=== PATIENT | female | born 1960 | race Caucasian/White ===

== ENCOUNTER → 2017-07-26 09:40 | Outpatient (CLI) | payer MEDICARE, MEDICAID, SELFPAY ==
--- NOTE | 2017-07-26 | DI.RAD.S_ITS ---
PROCEDURE: XR FOOT RT MIN 3V INDICATIONS: pain in right foot TECHNIQUE: 3 views of the foot were acquired. COMPARISON: [facility], , XR FOOT 3V RIGHT, 06/23/2005, 8:37. FINDINGS: Bones: No fractures or dislocations. No suspicious bony lesions. Small calcaneal bone spur. Soft tissues: No tibiotalar joint effusion. Achilles tendon appears normal. IMPRESSION: No fracture. No acute osseous lesion. If symptoms and/or clinical suspicion for pathology persists, further assessment with repeat radiographs or advanced imaging (e.g. CT, MRI or bone scan) may be helpful for further assessment. Dictated by: Symone Mercado MD, PhD on 07/26/2017 at 9:28 Approved by: Symone Mercado MD, PhD on 07/26/2017 at 9:29
== END ==
PROVIDERS: Family Provider Family Medicine; PCP Family Medicine; Visit Provider Specialist
DX: M79.671 Pain in right foot (principal)
CPT/HCPCS: 73630

== ENCOUNTER 2017-10-10 11:56 | Emergency (ER) | payer MEDICARE, MEDICAID, SELFPAY ==
[2017-10-10 12:06] VITALS: BP 136/77; PULSE 72; RESP 14; TEMP 36.2; O2SAT 98; BMI 31.8
[2017-10-10 13:12] VITALS: BP 123/81; PULSE 64; RESP 19; O2SAT 98
--- NOTE | 2017-10-10 13:50 | ED_ITS ---
HPI - Seizure General Chief Complaint: Seizure Stated Complaint: SEIZURES Time Seen by Provider: 10/10/17 12:13 Source: patient Mode of arrival: ambulatory Limitations: no limitations History of Present Illness HPI Narrative: Patient states she was started on tramadol for painful bump behind her ear. She states that right after that, she began to have shaking episodes. Caregiver reports noticing the patient's whole body shaking during her sleep, but patient also states she noticed her hands shaking in the car. Patient states that she has different kinds of seizures, and that she has been told she has epileptic and nonepileptic seizures. Patient states that she sometimes will get shaking and her hand and sometimes in a leg. Patient's caregiver states that when the patient awoke from her nap, during which she had had some full body shaking, the patient seemed confused. MD complaint: seizure Onset (ago): hour(s) (2) Description of Episode: tonic-clonic movement and post-event confusion -: second(s) Witnessed: yes - by other (Patient's caregiver) Trauma: No Seizure History: known seizure disorder (Patient states she has been taking her Topamax. She also takes gabapentin for her seizures, she states.) Place: home Possible Precipitating Event: medication Associated symptoms: other (Patient states she has had a painful bump behind her left ear. She states that she has not been sleeping well because of this. She saw her doctor for this this morning, and was given the tramadol.) Treatments prior to arrival: other (Patient states she took her Topamax just before coming. She has not missed any recent doses.) Related Data Home Medications Medication Instructions Recorded Confirmed [RED RICE YEAST] 600 mg PO BID #0 03/31/10 albuterol sulfate [Proventil HFA] 2 puff INH PRN PRN #0 03/31/10 cholecalciferol (vitamin D3) 5,000 unit PO QDAY #0 03/31/10 docusate sodium [DOK] 500 mg PO PRN PRN #0 03/31/10 [CRANBERRY] 1 tab PO QDAY #0 10/16/16 gabapentin [Neurontin] 3,200 mg PO QDAY #0 10/16/16 ibuprofen 400 mg PO PRN PRN #0 10/16/16 loperamide 2 mg PO PRN PRN #0 10/16/16 loratadine 10 mg PO QDAYP PRN #0 10/16/16 peg 400-propylene glycol (PF) 2 drp OPHTH QDAY #0 10/16/16 [Systane (PF)] tizanidine 4 mg PO QDAYP PRN #0 10/16/16 Previous Rx's Medication Instructions Recorded topiramate [Topamax] 4 tab PO BID #30 10/16/16 Walker: Front Wheel #1 11/18/16 oxycodone 1 - 2 tab PO Q3HP PRN #60 tab 11/18/16 rivaroxaban [Xarelto] 10 mg PO QDAY #10 tab 11/18/16 acetaminophen-codeine 1 tab PO Q4-6H PRN #14 tab 10/10/17 [Tylenol-Codeine #3] Allergies Allergy/AdvReac Type Severity Reaction Status Date / Time adhesive tape [ADHESIVE TAPE] Allergy Severe I GOT RED Verified 10/10/17 12:15 aspirin [ASPIRIN] Allergy Unknown UNKNOWN Verified 10/10/17 12:15 REACTION PER PT nitrofurantoin Allergy Unknown UNKNOWN Verified 10/10/17 12:15 [NITROFURANTOIN] REACTION Penicillins [PENICILLINS] Allergy Unknown ITCHING-PT Verified 10/10/17 12:15 DOES NOT REMEMBER SEVERITY Sulfa (Sulfonamide Allergy Unknown UNKNOWN Verified 10/10/17 12:15 Antibiotics) PER PT [SULFA (SULFONAMIDE ANTIBIOTICS)] [id number] Allergy Unknown PT NOT Uncoded 06/13/17 12:04 AWARE OF THIS ALLERGY Review of Systems Review of Systems All systems reviewed & are unremarkable except as noted in HPI and below Constitutional Denies chills, Denies fever(s), Denies lethargy and Denies weakness Eyes Denies change in vision, Denies eye discharge, Denies irritation and Denies loss of vision ENT Ears, Nose, Mouth, and Throat: Denies change in voice, Denies neck pain and Denies sore throat Cardiovascular Denies chest pain, Denies irregular heart rhythm, Denies lightheadedness, Denies palpitations, Denies dyspnea, Denies dyspnea on exertion and Denies orthopnea Respiratory Denies cough, Denies dyspnea, Denies dyspnea on exertion and Denies wheezing Gastrointestinal Gastrointestinal: Denies abdominal pain, Denies change in bowel habits, Denies diarrhea, Denies nausea and Denies vomiting Genitourinary Denies hematuria, Denies flank pain, Denies urinary incontinence and Denies urinary urgency Musculoskeletal Denies neck pain Integumentary/Breasts Denies pruritus, Denies erythema, Denies rash and Denies wounds Neurologic Denies confusion, Denies loss of vision, Reports seizure-like activity and Denies weakness Psychiatric Denies anxiety, Denies confusion, Denies depression, Denies homicidal ideation and Denies suicidal ideation Endocrine Denies palpitations Hematologic/Lymphatic Denies easy bruising Allergic/Immunologic Denies wheezing [facility] Social History Smoking Status: Never smoker Exam Initial Vital Signs Initial Vital Signs: Vital Signs Temperature 97.2 F L 10/10/17 12:06 Pulse Rate 72 10/10/17 12:06 Respiratory Rate 14 10/10/17 12:06 Blood Pressure 136/77 H 10/10/17 12:06 Pulse Oximetry 98 10/10/17 12:06 Const General: cooperative and well developed Nutritional Appearance: well nourished Orientation: alert, awake, oriented x3 and not confused HENPR Head: normocephalic and atraumatic Ears: external ears normal (Patient has a very small, and shotty lymph node posterior to her left ear. No erythema or fluctuance.) Nose: external nose normal and No nasal discharge Face and sinus: sinuses nontender, face symmetric, no sinus tenderness and No dry mucous membranes Mouth: oral mucosae normal and moist mucous membranes Teeth and gingiva: dentition normal Throat: tonsils normal and uvula midline Eyes General: appearance normal, both eyes and all related structures Eyelids: eyelids normal Conjunctivae: conjunctivae normal Sclera: sclerae normal Pupils: PERRL EOM: EOM intact bilaterally Neck Neck: normal visual inspection, trachea midline, No lymphadenopathy, No midline deformity and No JVD Lymphatic: No lymphedema Chest Chest: normal inspection of the chest Resp Effort & Inspection: normal respiratory effort, able to speak in complete sentences, no respiratory distress and no use of accessory muscles Auscultation: clear to auscultation bilaterally, no rales, no rhonchi and no wheezes Cardio Rate: regular rate Rhythm: regular rhythm Heart Sounds: no click, no gallops, no murmurs and no rubs Pulses: normal peripheral pulses GI Inspection: non-distended Palpation: soft, no hepatosplenomegaly, No guarding, No pulsatile mass and No tender Auscultation: normal bowel sounds Back/Spine/Pelvis Back: No CVA tenderness Cervical Spine: cervical ROM normal and No pain with cervical ROM Thoracic/Lumbar Spine: thoracic and lumbar spine normal to inspection Skin General: no rashes or lesions noted, No jaundice and No petechiae Neuro General: alert, oriented x3, gait normal and no focal motor deficits Speech: speech normal Extrem General: full ROM, no clubbing, cyanosis or edema, no pedal edema and no calf tenderness Psych Appearance: well kempt Mental Status: mental status grossly normal Attitude: cooperative Thought Content: normal and suicidality Judgment: judgment good Course Hospital Course: The patient remains stable for her stay in the emergency department. She had occasional shaking of her upper extremities in the ED, but never lost consciousness with any of these episodes. I felt that if anything, these episodes represented a nonepileptic spell. As such, the patient was not given Ativan or other seizure treatment in the emergency department. Laboratory studies were unremarkable. I discussed with the patient that if she feels that the tramadol is given her adverse effects, then she should hold off taking it. I will give her a small prescription for Tylenol 3 instead. If she continues to have increased seizure-like activity, then she should see her neurologist to discuss whether changes need to be made to her anticonvulsant regimen or whether other treatment is necessary. At this time, no emergent condition has been identified. Orders Ordered: Discontinued Medications Acetaminophen (Tylenol) 650 mg PO NOW ONE Stop: 10/10/17 14:08 Last Admin: 10/10/17 14:08 Dose: 650 mg Vital Signs - 8 hr 10/10/17 12:06 10/10/17 13:12 Pulse Rate 72 64 Respiratory Rate 14 19 Blood Pressure 136/77 H Blood Pressure [Right Arm] 123/81 H Pulse Oximetry 98 98 MDM - Seizure Medical Records Attestation: I reviewed the patient's medical records. Lab Data Attestation: I reviewed the patient's lab results. Result diagrams: 10/10/17 12:30 Lab Results 10/10/17 Range/Units 12:30 Sodium 143 (137-145) mmol/L Potassium 4.1 (3.4-5.1) mmol/L Chloride 110 H (98-107) mmol/L Carbon Dioxide 24 (22-32) mmol/L BUN 17 (7-17) mg/dL Creatinine 1.10 H (0.52-1.04) mg/dL Estimated GFR 51.8 L (>60) mL/min BUN/Creatinine Ratio 15.5 (6-22) Glucose 114 H (70-100) mg/dL Calcium 9.3 (8.4-10.2) mg/dL ECG Data Attestation: I personally reviewed and interpreted this ECG as follows: Prior ECG tracings: not available for review Interpretation: EKG time, 1224 Ventricular rate 62 beats per minute MN interval 174 milliseconds QRS duration 90 milliseconds QT interval normal Nonspecific T-wave abnormality Normal sinus rhythm Normal axis Discharge Plan Departure Patient Disposition: Home, Self-Care Clinical Impression: Seizure-like activity Discharge Date/Time: 10/10/17 15:30 Interventions: ED Discharge Assessment Last Done: 10/10/17 15:28 Instructions: DI for Seizure Disorder -- Adult Activity Restrictions/Additional Instructions: Your labs look good. Please continue to take your medications for seizures, as usual. If you're concerned about the tramadol causing a problem, and please discontinue use of this medication. You may take the Tylenol 3 instead, as needed. Prescriptions: New acetaminophen-codeine [Tylenol-Codeine #3] 300-30 mg tablet 1 tab PO Q4-6H PRN (Reason: pain) Qty: 14 RF: 0 No Action albuterol sulfate [Proventil HFA] 90 MCG/PUFF HFA aerosol inhaler 2 puff INH PRN PRNQty: 0 RF: 0 cholecalciferol (vitamin D3) 10,000 unit Tablet 5,000 unit PO QDAY Qty: 0 RF: 0 docusate sodium [DOK] 250 MG capsule 500 mg PO PRN PRNQty: 0 RF: 0 [RED RICE YEAST] 600 mg PO BID Qty: 0 RF: 0 gabapentin [Neurontin] 400 MG capsule 3,200 mg PO QDAY Qty: 0 RF: 0 tizanidine 4 MG tablet 4 mg PO QDAYP PRNQty: 0 RF: 0 loratadine 10 MG tablet 10 mg PO QDAYP PRNQty: 0 RF: 0 ibuprofen 200 MG capsule 400 mg PO PRN PRNQty: 0 RF: 0 loperamide 2 MG capsule 2 mg PO PRN PRNQty: 0 RF: 0 peg 400-propylene glycol (PF) [Systane (PF)] 1 EACH dropperette 2 drp OPHTH QDAY Qty: 0 RF: 0 [CRANBERRY] 1 tab PO QDAY Qty: 0 RF: 0 topiramate [Topamax] 50 MG tablet 4 tab PO BID Qty: 30 RF: 0 oxycodone 5 MG tablet 1 - 2 tab PO Q3HP PRNQty: 60 RF: 0 Walker: Front Wheel Qty: 1 RF: 0 rivaroxaban [Xarelto] 10 MG tablet 10 mg PO QDAY Qty: 10 RF: 0 Referrals: Jaya Wyatt DO [Primary Care Provider] - (Please follow-up with your doctor if you continue to have more seizure-like activity than usual.)
[2017-10-10 14:03] LABS: BUN Creatinine Ratio 15.5 (6-22); Blood Urea Nitrogen 17 mg/dL (7-17); Calcium 9.3 mg/dL (8.4-10.2); Carbon Dioxide 24 mmol/L (22-32); Chloride 110 mmol/L (98-107); Estimated Glomerular Filt Rate 51.8 mL/min (>60); Glucose 114 mg/dL (70-100); HEMOLYSIS < 15 (0-50); Potassium 4.1 mmol/L (3.4-5.1); Sodium 143 mmol/L (137-145)
[2017-10-10] MEDS: ACETAMINOPHEN 325 MG TABLET 650 MG PO (14:08)
[2017-10-10 14:30] VITALS: BP 127/88; PULSE 61; RESP 13; O2SAT 98
== END 2017-10-10 15:30 | disposition home or self-care (01) ==
PROVIDERS: Emergency Provider Emergency Medicine; Family Provider Family Medicine; PCP Family Medicine
DX: R56.9 Unspecified convulsions (principal)
CPT/HCPCS: 36591; 80048; 93005; 93010; 99283

== ENCOUNTER → 2017-10-26 13:10 | Outpatient (CLI) | payer MEDICARE, MEDICAID, SELFPAY ==
--- NOTE | 2017-10-26 | DI.CT.S_ITS ---
PROCEDURE: CT HEAD/BRAIN WO/W CON INDICATIONS: LEFT MASTOID AREA PAIN TECHNIQUE: 4.5 mm thick angled axial sections acquired from the foramen magnum to the vertex before and after the administration of intravenous contrast, with coronal and sagittal reformats. For radiation dose reduction, the following was used: automated exposure control, adjustment of mA and/or kV according to patient size. COMPARISON: [facility], CT, HEAD WITHOUT CONTRAST, 10/16/2016, 12:28. FINDINGS: Image quality: Excellent. CSF Spaces: Basal cisterns are patent. No extra-axial fluid collections. There is marked asymmetric enlargement of the left lateral ventricle, unchanged. Brain: No midline shift. No intracranial bleeds or masses. No abnormal intracranial enhancement. Mariscal-white interface appears normal. Skull and face: Calvarium and visualized facial bones appear intact, without suspicious lesions. There is a 6 mm enhancing nodule in the left parotid gland, and a 7 mm enhancing nodule is noted in the right parotid gland. Sinuses: Visualized sinuses and mastoids are clear. IMPRESSION: 1. No acute intracranial abnormalities. 2. Unchanged unilateral dilation of the left lateral ventricle. 3. Normally aerated mastoids. No findings to explain left mastoid pain. 4. Small enhancing nodules in parotid glands bilaterally, most likely intraparotid lymph nodes. If clinical symptoms persist, a short-term followup neck CT is suggested. Dictated by: Oswaldo Rodríguez M.D. on 10/26/2017 at 14:51 Approved by: Oswaldo Rodríguez M.D. on 10/26/2017 at 18:02
[2017-10-26 13:48] LABS: Blood Urea Nitrogen 16 mg/dL (7-17); Calcium 9.8 mg/dL (8.4-10.2); Carbon Dioxide 25 mmol/L (22-32); Chloride 108 mmol/L (98-107); Estimated Glomerular Filt Rate 57.8 mL/min (>60); Glucose 118 mg/dL (70-100); HEMOLYSIS < 15 (0-50); Sodium 145 mmol/L (137-145)
== END ==
PROVIDERS: Family Provider Family Medicine; PCP Family Medicine; Visit Provider Family Medicine
DX: H92.02 Otalgia, left ear (principal); K11.9 Disease of salivary gland, unspecified; E11.9 Type 2 diabetes mellitus without complications; H74.8X2 Other specified disorders of left middle ear and mastoid
CPT/HCPCS: 36415; 70470; 80048

== ENCOUNTER → 2018-07-18 13:34 | Outpatient (CLI) | payer MEDICARE, MEDICAID, SELFPAY ==
--- NOTE | 2018-07-18 | DI.MRI.S_ITS ---
PROCEDURE: MR THORACIC SPINE WO CON INDICATIONS: Cervicalgia Dorsalgia, unspecified TECHNIQUE: Noncontrast sagittal T1 spine echo and T2 fast spin echo, sagittal STIR, axial T1 and T2 fast spin echo through the thoracic spine. COMPARISON: None. FINDINGS: Image quality: Partially degraded by artifact. Alignment and Curvature: There is normal bony alignment. Bone Marrow: Marrow is of normal overall signal. No acute vertebral body compression fractures. Spinal Cord: Visualized spinal cord is normal in size and signal. Paraspinous Soft Tissues: No paravertebral masses. Miscellaneous: Multilevel disc desiccation. On axial images, central canal and foramina appear widely patent at all scanned levels. IMPRESSION: Multilevel degenerative disc disease. No significant canal, nor foraminal stenosis. No neural impingement. Dictated by: Branden Mckoy M.D. on 07/18/2018 at 15:36 Approved by: Branden Mckoy M.D. on 07/18/2018 at 15:39
--- NOTE | 2018-07-18 | DI.MRI.S_ITS ---
PROCEDURE: MR CERVICAL SPINE WO CON INDICATIONS: Cervicalgia Dorsalgia, unspecified TECHNIQUE: Noncontrast sagittal T1 spin echo and T2 fast spin echo, sagittal STIR, foraminal oblique sagittal T2 fast spin echo, and axial gradient echo or T2 fast spin echo through the cervical spine. COMPARISON: [facility], , C-SPINE WITHOUT CONTRAST, 02/01/2010, 12:56. FINDINGS: Image quality: Excellent. Alignment and Curvature: There is loss of normal cervical lordosis. There is mild, grade 1 retrolisthesis of C4 on C5. Bone Marrow: Marrow demonstrates normal overall signal. Anterior fusion of C5-C7 has been performed. Spinal Cord: Visualized spinal cord has normal size and signal. No cerebellar tonsillar herniation. Paraspinous Soft Tissues: No paravertebral masses. Prevertebral soft tissues are normal in thickness. C2-C3: Moderate disc desiccation. Mild facet hypertrophy bilaterally. Mild canal stenosis. Mild bilateral foraminal stenosis. No change. C3-C4: Moderate disc desiccation. Mild disc height loss. Mild diffuse disc bulge. Congenital canal stenosis. Increased, moderate canal stenosis. Increased, mild cord flattening. Severe right and mild left foraminal stenosis, which is increased. Flattening of the right C4 nerve root, new since the prior examination. C4-C5: Moderate disc desiccation. Mild disc height loss. Mild diffuse disc bulge. Congenital canal stenosis. Moderate facet and uncovertebral hypertrophy. Increased, moderate to severe canal stenosis. Mild cord flattening. Increased, moderate bilateral foraminal stenosis. C5-C6: Status post fusion. Bilateral facet and uncovertebral hypertrophy. No significant canal stenosis. Moderate right and mild left foraminal stenosis. C6-C7: Status post fusion. Bilateral facet and uncovertebral hypertrophy. No significant canal stenosis. Moderate bilateral foraminal stenosis. C7-T1: Disc desiccation. No significant canal, nor foraminal stenosis. IMPRESSION: 1. Status post low anterior cervical fusion with no significant canal stenosis at the fused levels. 2. Multilevel degenerative disc and facet disease, as well as uncovertebral hypertrophy. 3. Multilevel canal stenoses, worst at C3-C4 and C4-C5, where there is mild cord flattening. 4. Multilevel foraminal stenoses, worst at C3-C4 on the right where there is intraforaminal nerve root flattening. Dictated by: Branden Mckoy M.D. on 07/18/2018 at 15:09 Approved by: Branden Mckoy M.D. on 07/18/2018 at 15:32
== END ==
PROVIDERS: Family Provider Family Medicine; PCP Family Medicine; Visit Provider Physical Medicine & Rehabilitation
DX: M54.9 Dorsalgia, unspecified (principal); M50.31 Other cervical disc degeneration, high cervical region; M48.02 Spinal stenosis, cervical region; M51.34 Other intervertebral disc degeneration, thoracic region; Z98.1 Arthrodesis status
CPT/HCPCS: 72141; 72146

== ENCOUNTER → 2018-07-31 09:54 | Outpatient (CLI) | payer MEDICARE, MEDICAID, SELFPAY ==
--- NOTE | 2018-07-31 | DI.CT.S_ITS ---
PROCEDURE: CT SINUS SCREEN WO CON INDICATIONS: SINUSITIS TECHNIQUE: Noncontrast 3.0 mm axial images acquired from the frontal sinuses to the mid-sella, with coronal and sagittal reformats. For radiation dose reduction, the following was used: automated exposure control, adjustment of mA and/or kV according to patient size. COMPARISON: [facility], CT, CT HEAD/BRAIN WO/W CON, 10/26/2017, 14:00. FINDINGS: Image quality: Excellent. Sinuses: There is very minimal scattered mucosal thickening within the ethmoid and frontal sinuses. Ostiomeatal Complexes: Ostiomeatal complexes are patent. No Ovi cells. Miscellaneous: Visualized intra-orbital contents are normal. No jeison bullosa or paradoxical turbinate curvature. No nasal septal deviation. Visualized intracranial contents demonstrate a persistent appearance of a dilated left ventricle which is unchanged compared to 2018. IMPRESSION: 1. Minimal scattered sinus mucosal thickening. Ostiomeatal complexes are patent. Dictated by: Bailey Mendoza M.D. on 07/31/2018 at 11:52 Approved by: Bailey Mendoza M.D. on 07/31/2018 at 11:56
== END ==
PROVIDERS: Family Provider Family Medicine; PCP Family Medicine; Visit Provider Internal Medicine
DX: J32.8 Other chronic sinusitis (principal)
CPT/HCPCS: 70486

== ENCOUNTER → 2019-02-20 10:26 | Outpatient (CLI) | payer MEDICARE, MEDICAID, SELFPAY ==
--- NOTE | 2019-02-20 | DI.RAD.S_ITS ---
PROCEDURE: XR KNEE RT 1TO2V INDICATIONS: RIGHT KNEE PAIN TECHNIQUE: 2 view(s) of the knee acquired. COMPARISON: [facility], CR, XR KNEE ARTHRITIC SERIES RT, 05/18/2017, 14:21. FINDINGS: Bones: Patient is status post knee joint arthroplasty. Hardware components are in expected positions. Visualized bony structures are intact. Soft tissues: Trace knee joint effusion. IMPRESSION: Stable appearance of the prosthesis. Suspect trace knee joint effusion. Dictated by: Oswaldo Rodríguez M.D. on 02/20/2019 at 17:01 Approved by: Oswaldo Rodríguez M.D. on 02/20/2019 at 17:02
== END ==
PROVIDERS: PCP Family Medicine; Visit Provider Family Medicine
DX: M25.561 Pain in right knee (principal); Z96.651 Presence of right artificial knee joint
CPT/HCPCS: 73560

== ENCOUNTER → 2019-05-23 15:01 | Outpatient (CLI) | payer MEDICARE, MEDICAID, SELFPAY ==
--- NOTE | 2019-05-23 15:06 | DI.MRI.S_ITS ---
PROCEDURE: MR LUMBAR SPINE WO CON INDICATIONS: Low and mid back pain with bilateral leg pain TECHNIQUE: Noncontrast sagittal T1 spin echo and T2 fast echo, sagittal STIR, axial T1 and T2 fast spin echo through the lumbar spine. In cases with scoliosis, additional coronal T2 fast spin echo may be performed. COMPARISON: [facility], , L-SPINE WITHOUT CONTRAST, 04/03/2017, 12:05. FINDINGS: Image quality: Excellent. Alignment and Curvature: Trace degenerative retrolisthesis of L2 on L3. Bone Marrow: Marrow is of normal overall signal. No acute vertebral body compression fractures. Spinal Cord: Conus medullaris terminates at the L1-L2 level. Visualized cord demonstrates normal signal and size. There is clumping of the nerve roots in the thecal sac seen from L3-L4 inferiorly, present previously as well, consistent with arachnoiditis. Paraspinous Soft Tissues: No paravertebral masses. T12-L1: No canal stenosis or foraminal stenosis. L1-L2: No canal stenosis or foraminal stenosis. L2-L3: Unchanged. Minimal disc bulge. Facet and ligament hypertrophy. No canal stenosis. Mild bilateral foraminal stenosis. L3-L4: Mild disc bulge. Facet and ligament hypertrophy. Mild canal stenosis. Mild bilateral foraminal stenosis. L4-L5: Interval progression. Mild central posterior disc protrusion plus facet and ligament hypertrophy results in moderate to severe canal stenosis. Mild bilateral foraminal stenosis. L5-S1: Mild facet hypertrophy. No canal stenosis. No foraminal stenosis. IMPRESSION: 1. Mild canal stenosis at L3-L4. 2. Progression of canal stenosis at L4-L5, moderate to severe. 3. 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 Dictated by: Osvaldo Loo M.D. on 05/23/2019 at 16:26 Approved by: Osvaldo Loo M.D. on 05/23/2019 at 16:34
== END ==
PROVIDERS: PCP Family Medicine; Referring Provider Physical Medicine & Rehabilitation; Visit Provider Physical Medicine & Rehabilitation
DX: M54.5 Low back pain (principal); M54.6 Pain in thoracic spine; M79.605 Pain in left leg; M79.604 Pain in right leg; M48.061 Spinal stenosis, lumbar region without neurogenic claudication
CPT/HCPCS: 72148

== ENCOUNTER → 2019-10-03 10:36 | Outpatient (CLI) | payer MEDICARE, MEDICAID, SELFPAY ==
[2019-10-04 18:43] LABS: COVID19 Sendout Not Detected (Not Detect)
== END ==
PROVIDERS: PCP Family Medicine; Visit Provider Physician Assistant
DX: Z11.59 Encounter for screening for other viral diseases (principal)
CPT/HCPCS: 87635

== ENCOUNTER 2019-10-06 08:33 | Day surgery (SDC) | payer MEDICARE, MEDICAID, SELFPAY ==
--- NOTE | 2019-10-06 | PATH_ITS ---
[facility] Accession Number: [id number] . 01 Material submitted: . PART A: gastrointestinal site - GASTRIC POLYP PART B: esophagus, E-G Junction - GE JUNCTION . 02 Diagnosis: A. Stomach, Polyp, Biopsy: Benign gastric xanthoma. No evidence of Helicobacter on H/E stain. Negative for intestinal metaplasia. Negative for dysplasia and malignancy. . B. Gastroesophageal Junction, Biopsy: Ulcerated squamocolumnar junctional mucosa. A PAS stain is negative for fungal organisms. Negative for intestinal metaplasia. Negative for dysplasia and malignancy. [facility] 10/09/2019 1416 Local . 02 Electronically signed: . Juanita Angeles MD, Pathologist NPI- [id number] . 01 Gross description: . Part A: GASTRIC POLYP: Received in formalin are 2 fragment(s) of chiu, soft tissue measuring 0.1 x 0.1 x 0.1 cm to 0.3 x 0.3 x 0.2 cm submitted entirely in 1 cassette(s) Part B: GE JUNCTION: Received in formalin are 3 fragment(s) of chiu, soft tissue measuring 0.1 x 0.1 x 0.1 cm to 0.2 x 0.1 x 0.1 cm submitted entirely in 1 cassette(s) /[facility] 10/07/2019 1917 Local . 02 Microscopic: . A. A CD68 immunohistochemical stain was performed to characterize cells of interest, and is positive, consistent with histiocytes and an interpretation of benign gastric xanthoma. The control stain showed appropriate reactivity. . B. An AB/PAS stain was performed to evaluate for fungal organisms and is negative. The control stain showed appropriate reactivity. . * This test was developed and its performance characteristics determined by [employer]. It has not been cleared or approved by the U.S. Food and Drug Administration. The FDA has determined that such clearance or approval is not necessary. This test is used for clinical purposes. It should not be regarded as investigational or for research. . 02 Pathologist provided ICD-10: R13.10 . 02 CPT . 739036, 372486, [id number], [id number] Performed at: 01 [facility] [address] [place] [address] [id number] MD Kavin Dawn MD Phone: [phone] Performed at: 02 [facility] [id number] [place] [address] [id number] MD Juanita Angeles MD Phone: [phone]
[2019-10-06 10:29] VITALS: BMI 34.1
[2019-10-06 10:40] VITALS: BP 140/85; PULSE 76; RESP 16; TEMP 36.1; O2SAT 99
[2019-10-06] MEDS: LACTATED RINGERS 1,000 ML 200 ML IV (10:45)
--- NOTE | 2019-10-06 11:00 | PM.PREOP ---
Pre-operative Note COVID-19 COVID-19 status: Negative Result date/Date tested (Pos, Neg/Pending): 10/03/19 Interval Note History & Physical reviewed/Exam performed by Physician: Yes Changes to H&P: No H&P completed within 30 days and has changed as indicated here:: I have discussed the procedures(EGD and colonoscopy) and the rationale with the patient including risks of bleeding, perforation which would necessitate a major operation, failure to find remove all lesions and the potential to tattoo. They appeared to understand and wished to proceed. ASA Class (for procedural sedation): II
[2019-10-06] MEDS: MIDAZOLAM 5 MG/5 ML VIAL IV (11:35)
[2019-10-06] MEDS: ONDANSETRON 4 MG/2 ML INJ IV (11:36)
[2019-10-06] MEDS: fentaNYL 250 MCG/5 ML INJ IV (11:36)
[2019-10-06] MEDS: LIDOCAINE 4% SOLN 50 ML 20 ML TOP (11:37)
--- NOTE | 2019-10-06 11:43 | PM.OP.ENDO ---
Operative Date/Time/Diagnoses Date of procedure: 10/06/19 Time of procedure: 11:43 Pre-op diagnosis: Dysphagia. Screening exam for colon cancer. Last scope was a short scope years ago. Post-op diagnosis: same (Small gastric polyp. Pancolonic diverticulosis scattered through the colon. Not heavily concentrated.) Procedure & Clinicians Study performed: EGD with cold biopsy and colonoscopy Same procedure as scheduled: Yes Indications: Abdominal pain. Screening. Surgeon: Eze Flores Procedure Notes SCOAP/Timeout: Performed Procedure in detail: The patient had topical anesthetic applied to oropharynx. She was placed in left lateral decubitus position and underwent IV sedation directed by the surgeon consisting of fentanyl and Versed. A bite block was inserted and the scope was advanced through it into the esophagus. The esophagus was unremarkable. GE junction was noted at 38 cm from the incisors. The stomach insufflated well. There were no lesions seen in the body, antrum or at the incisura. The pyloric channel was patent. The duodenum was unremarkable to the 4th part. The scope was brought back into the stomach and retroflexed. The proximal stomach was remarkable for a small yellow polypoid lesion which I biopsied and appeared to be completely removed. It was just a few mm in size.. The scope was straightened and brought out through the esophagus again. There was a small ulcer near the GE junction. It was fairly superficial. I biopsied this and the GE junction region. No other lesions were seen. The scope was removed and the patient tolerated the procedure well. The patient was repositioned in given additional sedation. Digital exam was unremarkable. The scope was advanced through the rectum into the sigmoid descending transverse and ascending colon. The cecum was reached identified by the ileocecal valve and the appendiceal opening. The scope was gradually brought out. I could I identify no lesions going in or out except for diverticulosis scattered throughout the colon. Id a multiple times to retroflex in the rectum that was unsuccessful therefore I came to the rectum very slowly. I could not see any lesions other than some small hemorrhoids. These were located right near the anal verge. The scope was removed and the patient tolerated the procedure well. There was removed and the patient tolerated the procedure well. The prep was very good. Scope withdrawal time: Over 7 minutes Sedation minutes: 35 Findings: diverticulosis (Pancolonic) and other findings (Small gastric polyp and superficial ulcer near the GE junction.) Specimen(s): other (Gastric polyp and GE junction biopsies) Post-procedure Recommendations: Colonscopy in 10 years Follow up: weeks Disposition: PACU
[2019-10-06 11:45] VITALS: BP 146/85; PULSE 72; RESP 15; O2SAT 98
[2019-10-06 11:52] VITALS: BP 145/87; PULSE 69; RESP 12; TEMP 36.3; O2SAT 95
[2019-10-06 11:55] VITALS: BP 141/89; PULSE 70; RESP 15; O2SAT 95
--- NOTE | 2019-10-06 12:02 | SUR.PHASEI ---
Pt had small seizure, pt VSS throughout and now pt fully awake stating time for her antiseizure med she brought with her. Taking po fluids without problems. Home med taken
[2019-10-06 12:40] VITALS: BP 150/87; PULSE 71; RESP 15; TEMP 36.4; O2SAT 95
[2019-10-06 12:47] VITALS: BP 133/79; PULSE 66; RESP 16; TEMP 36.4; O2SAT 99
--- NOTE | 2019-10-06 14:43 | SUR.PHASEII ---
1250 patient's left arm began moving randomly. Patient reported having a small seizure, no loss of consciousness. Caregiver at bedside. Patient returned to baseline quickly and requested to discharge.
== END 2019-10-06 13:02 | disposition home or self-care (01) ==
PROVIDERS: Specialist; PCP Family Medicine; Referring Provider Family Medicine; Visit Provider Surgery
PROC: 0DJ08ZZ Inspection of Upper Intestinal Tract, Via Natural or Artificial Opening Endoscopic (ICD-10-PCS; CPT 43235; principal; 2019-10-06 09:15)
PROC: 0DJD8ZZ Inspection of Lower Intestinal Tract, Via Natural or Artificial Opening Endoscopic (ICD-10-PCS; CPT 45378; 2019-10-06 09:15)
DX: Z12.11 Encounter for screening for malignant neoplasm of colon (principal); R13.10 Dysphagia, unspecified; K57.30 Diverticulosis of large intestine without perforation or abscess without bleeding; K31.7 Polyp of stomach and duodenum; K64.9 Unspecified hemorrhoids
CPT/HCPCS: 43239; G0121; 99152; 99153; J2250; J2405; J3010

== ENCOUNTER 2020-04-23 10:08 | Emergency (ER) | payer OTHER, MEDICAID, SELFPAY ==
[2020-04-23] VITALS (10 sets, daily range): BP systolic 131–142; BP diastolic 66–87; PULSE 56–90; RESP 12–20; TEMP 36.9; O2SAT 86–100; BMI 34.7
--- NOTE | 2020-04-23 10:44 | DI.CT.S_ITS ---
PROCEDURE: CT ABDOMEN PELVIS W CON INDICATIONS: Left upper abdominal pain TECHNIQUE: After the administration of intravenous contrast, 5 mm thick sections acquired from the diaphragm to the symphysis. 5 mm coronal and sagittal reformats were acquired. For radiation dose reduction, the following was used: automated exposure control, adjustment of mA and/or kV according to patient size. COMPARISON: CT, ABDOMEN/PELVIS WITH CONTRAST, 05/17/2008, 21:51. FINDINGS: Image quality: Excellent. ABDOMEN: Lung bases: Lung bases are clear. Heart size is normal. There is a small hiatal hernia. Solid organs: Liver is normal in size and enhancement. Gallbladder is surgically absent Biliary system is non dilated. Pancreas enhances normally. Spleen is normal in size and enhancement. No adrenal nodules. There is a 3 cm diameter soft mass in the superior pole of the left kidney. A 7 mm fatty nodule is seen in the left kidney compatible with a small angiomyolipoma. A 1.3 cm fat containing mass is seen in the superior pole of the right kidney, also compatible with an angiomyolipoma. Kidneys demonstrate normal size and enhancement, without hydronephrosis. Peritoneum and bowel: Bowel loops demonstrate normal wall thickness and caliber. There are scattered colonic diverticula. No free fluid or air. Nodes and vessels: No retroperitoneal or mesenteric adenopathy by size criteria. Aorta and inferior vena cava are normal in size. Miscellaneous: No ventral hernias. PELVIS: Genitourinary: Bladder wall thickness is normal. Miscellaneous: No inguinal hernias or adenopathy. Bones: No suspicious bony lesions. No vertebral body compression fractures. IMPRESSION: 1. A 3 cm diameter solid mass in the superior pole of left kidney, suspicious for renal cell carcinoma. Recommend urological consultation. 2. 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 3. Diverticulosis without diverticulitis. The result was discussed with Donna Frank in ER. Dictated by: Oswaldo Rodríguez M.D. on 04/23/2020 at 11:58 Approved by: Oswaldo Rodríguez M.D. on 04/23/2020 at 12:43
--- NOTE | 2020-04-23 10:56 | ED.ABDPAIN ---
HPI - Abdominal Pain <Donna FrankMINDY - Last Filed: 04/23/20 15:26> General Chief Complaint: Abdominal Pain Stated Complaint: Left lower stomach pain Time Seen by Provider: 04/23/20 10:15 Source: patient Mode of arrival: Ambulatory Limitations: no limitations History of Present Illness HPI narrative: 59yo female with a history of seizures, presents to the ED with her caregiver for increasing left upper quadrant pain. Patient's caregiver states patient was seen and evaluated, blood was found in urine. She was treated for UTI, culture returned without bacteria. Patient had a CT approximately week ago and ultrasound at [facility] showed a ?lesion on her left kidney ?. Patient is being scheduled for an MRI, has not had this study yet, is currently being improved by insurance.. Caregiver was concerned that left-sided pain which has been ongoing has been increasing over the past 2 days. Patient states it is a dull aching pain that is worse with pressure, movement, and eating. Caregiver states, how can we manage her pain three-week?. She denies any fevers, chills, chest pain, shortness of breath, vomiting, dizziness, nausea, diarrhea, or any other concerns. She does report that she has intermittent dysuria that has been ongoing for the past 2 weeks. Related Data Home Medications Medication Instructions Recorded Confirmed [RED RICE YEAST] 600 mg PO BID #0 03/31/10 10/23/19 albuterol sulfate [Proventil HFA] 2 puff INH PRN PRN #0 03/31/10 10/23/19 cholecalciferol (vitamin D3) 5,000 unit PO QDAY #0 03/31/10 10/23/19 docusate sodium [DOK] 500 mg PO PRN PRN #0 03/31/10 10/23/19 Systane (PF) 2 drp OPHTH QDAY #0 10/16/16 10/23/19 [CRANBERRY] 1 tab PO QDAY #0 10/16/16 10/23/19 gabapentin [Neurontin] 3,200 mg PO QDAY #0 10/16/16 10/23/19 ibuprofen 400 mg PO PRN PRN #0 10/16/16 10/23/19 loratadine 10 mg PO QDAYP PRN #0 10/16/16 10/23/19 fluticasone propionate [Flonase 2 spray INTRANASAL DAILY PRN 10/06/19 10/23/19 Allergy Relief] oxycodone 1 - 2 tab PO Q3HP PRN 10/06/19 10/23/19 topiramate [Topamax] 200 mg PO BID 10/06/19 10/23/19 Previous Rx's Medication Instructions Recorded Walker: Front Wheel #1 11/18/16 acetaminophen-codeine 1 tab PO Q4-6H PRN #14 tab 10/10/17 [Tylenol-Codeine #3] omeprazole 20 mg capsule,delayed 20 mg PO DAILY #30 cap 10/23/19 release cefpodoxime 200 mg PO BID 10 Days #20 tab 04/23/20 oxycodone 5 mg PO Q8H PRN #7 tab 04/23/20 Allergies Allergy/AdvReac Type Severity Reaction Status Date / Time adhesive tape [ADHESIVE TAPE] Allergy Severe I GOT Verified 04/23/20 10:20 RED blister aspirin [ASPIRIN] Allergy Unknown UNKNOWN Verified 04/23/20 10:20 REACTION PER PT nitrofurantoin Allergy Unknown UNKNOWN Verified 04/23/20 10:20 [NITROFURANTOIN] REACTION Penicillins [PENICILLINS] Allergy Unknown ITCHING-PT Verified 04/23/20 10:20 DOES NOT REMEMBER SEVERITY Sulfa (Sulfonamide Allergy Unknown UNKNOWN Verified 04/23/20 10:20 Antibiotics) PER PT [SULFA (SULFONAMIDE ANTIBIOTICS)] [id number] Allergy Unknown PT NOT Uncoded 10/23/19 09:56 AWARE OF THIS ALLERGY Review of Systems <MINDY Daily - Last Filed: 04/23/20 15:26> Review of Systems Narrative: REVIEW OF SYSTEMS: GENERAL: Denies fever. HENT: No head trauma. Reports history of seizures, see HPI. CARDIOVASCULAR: No chest pain. RESPIRATORY: No shortness of breath or cough. GASTROINTESTINAL: Complains of LUQ abdominal pain, see HPI GENITOURINARY: Reports dysuria, see HPI. MUSCULOSKELETAL: No pain. INTEGUMENTARY: No rash. NEURO: No numbness or tingling. Reports history of seizures, see HPI. Patient History <MINDY Daily - Last Filed: 04/23/20 15:26> Medical History (Updated 04/23/20 @ 13:39 by MINDY Daily) Asthma Diabetes Obesity Seizure-like activity Surgical History History of back surgery History of total knee arthroplasty Hx of cholecystectomy Hx of knee surgery Hx of neck surgery Hx of shoulder surgery Family History Mother Hypertension Heart disease Diabetes mellitus Stroke Colon cancer Kidney malignancy Father Diabetes mellitus Gallstones Social History marital status: unknown household members: caregiver and none Smoking Status: Never smoker alcohol intake: never substance use type: does not use Smoking Status: Never smoker alcohol intake frequency: 0-2 drinks per day Substance Use Type: does not use Exam <MINDY Daily - Last Filed: 04/23/20 15:26> Initial Vital Signs Initial Vital Signs: Vital Signs Temperature 98.4 F 04/23/20 10:13 Pulse Rate 90 04/23/20 10:13 Respiratory Rate 16 04/23/20 10:13 Blood Pressure 134/87 04/23/20 10:13 Pulse Oximetry 97 04/23/20 10:13 PHYSICAL EXAMINATION: GENERAL: Awake and alert, poor historian. HENT: Normocephalic, atraumatic. EYES: Conjunctiva pink, sclera white, no periorbital swelling. CARDIOVASCULAR: S1 and S2 sounds normal. Regular rate and rhythm, no murmurs, clicks, or bruits. No pedal edema. RESPIRATORY: Normal respiratory rate, trachea midline, airway patent. No stridor, nasal flaring or accessory muscle use. Lungs are clear in all mauricio without wheeze, rhonchi, or crackles. No cough. GASTROINTESTINAL: Bowel sounds normoactive. Abdomen is soft, LUQ and RLQ abd pain. No organomegaly, no palpable masses. GENITALURINARY: No flank tenderness. MUSCULOSKELETAL: Normal gait and coordination. Equal tone and mass bilaterally. EXTREMITIES: CMS intact. SKIN: Warm, dry, soft, appropriate color for ethnicity. No lesions, rashes, or wounds to visualized areas. NEURO: Awake and alert, answers questions slowly but appropriately. PSYCH: Dull affect. <Carmen Rutledge DO - Last Filed: 04/24/20 07:50> Initial Vital Signs Initial Vital Signs: Vital Signs Temperature 98.4 F 04/23/20 10:13 Pulse Rate 90 04/23/20 10:13 Respiratory Rate 16 04/23/20 10:13 Blood Pressure 134/87 04/23/20 10:13 Pulse Oximetry 97 04/23/20 10:13 Course <Donna Frank ELEVATOR CONSTRUCTOR SUPERVISOR - Last Filed: 04/23/20 15:26> Course Course Narrative: Patient able to ambulate without any difficulty. Orders Ordered: Discontinued Medications Sodium Chloride (Normal Saline 0.9%) 1,000 mls @ 1,000 mls/hr IV BOLUS ONE Stop: 04/23/20 12:25 Last Infusion: 04/23/20 13:28 Dose: 0 mls/hr Documented by: Admin: 04/23/20 11:32 Dose: 1,000 mls/hr Documented by: LONNIE Ondansetron HCl (Ondansetron 4 Mg/2 Ml Inj) 4 mg IV NOW ONE Stop: 04/23/20 11:28 Last Admin: 04/23/20 11:32 Dose: 4 mg Documented by: LONNIE Consultations Consultation #1: Patient staffed with Dr. Rutledge discussed test, test results, and plan of care. Vital Signs Vital signs: Vital Signs - 8 hr 04/23/20 10:13 04/23/20 10:14 04/23/20 10:30 Temperature 98.4 F Pulse Rate 90 78 66 Respiratory Rate 16 Blood Pressure 134/87 134/87 Pulse Oximetry 97 98 98 04/23/20 11:00 04/23/20 11:01 04/23/20 11:30 Temperature Pulse Rate 66 67 66 Respiratory Rate 15 Blood Pressure 131/80 139/70 Pulse Oximetry 98 98 97 04/23/20 11:43 04/23/20 12:00 04/23/20 12:26 Temperature Pulse Rate 59 L 63 58 L Respiratory Rate 12 20 17 Blood Pressure 140/70 141/66 H 131/75 Pulse Oximetry 99 98 86 L 04/23/20 14:13 Temperature Pulse Rate 56 L Respiratory Rate 20 Blood Pressure 142/83 H Pulse Oximetry 100 <Carmen Rutledge DO - Last Filed: 04/24/20 07:50> Orders Ordered: Discontinued Medications Sodium Chloride (Normal Saline 0.9%) 1,000 mls @ 1,000 mls/hr IV BOLUS ONE Stop: 04/23/20 12:25 Last Infusion: 04/23/20 13:28 Dose: 0 mls/hr Documented by: Admin: 04/23/20 11:32 Dose: 1,000 mls/hr Documented by: LONNIE Ondansetron HCl (Ondansetron 4 Mg/2 Ml Inj) 4 mg IV NOW ONE Stop: 04/23/20 11:28 Last Admin: 04/23/20 11:32 Dose: 4 mg Documented by: LONNIE Vital Signs Vital signs: Vital Signs - 8 hr 04/23/20 10:13 04/23/20 10:14 04/23/20 10:30 Temperature 98.4 F Pulse Rate 90 78 66 Respiratory Rate 16 Blood Pressure 134/87 134/87 Pulse Oximetry 97 98 98 04/23/20 11:00 04/23/20 11:01 04/23/20 11:30 Temperature Pulse Rate 66 67 66 Respiratory Rate 15 Blood Pressure 131/80 139/70 Pulse Oximetry 98 98 97 04/23/20 11:43 04/23/20 12:00 04/23/20 12:26 Temperature Pulse Rate 59 L 63 58 L Respiratory Rate 12 20 17 Blood Pressure 140/70 141/66 H 131/75 Pulse Oximetry 99 98 86 L 04/23/20 14:13 Temperature Pulse Rate 56 L Respiratory Rate 20 Blood Pressure 142/83 H Pulse Oximetry 100 MDM - Abdominal Pain <MINDY Daily - Last Filed: 04/23/20 15:26> Medical Records Attestation: I reviewed the patient's medical records. Lab Data Attestation: I reviewed the patient's lab results. Result diagrams: 04/23/20 11:04 04/23/20 11:04 Labs: Lab Results 04/23/20 04/23/20 04/23/20 Range/Units 10:51 11:04 11:04 WBC 8.2 (4.5-11.0) X10^3/uL RBC 4.13 (4.0-5.2) X10^6/uL Hgb 12.9 (12.0-16.0) g/dL Hct 38.7 (36-46) % MCV 93.6 (80-100) fL MCH 31.2 (26-34) PG MCHC 33.4 (30-36) % RDW 14.0 (11.6-14.8) % Plt Count 258 (150-400) X10^3/uL Neut % (Auto) 62.7 (50-75) % Lymph % (Auto) 26.8 (25-40) % [place] % (Auto) 6.3 (3-14) % Eos % (Auto) 3.2 (2-4) % Baso % (Auto) 1.0 (0-2) % Neut # (Auto) 5100 (9338-9055) /uL Lymph # (Auto) 2200 (6298-8444) /uL [place] # (Auto) 500 (0-900) /uL Eos # (Auto) 300 (0-450) /uL Baso # (Auto) 100 (0-100) /uL PT 11.5 (10.1-12.7) SECONDS INR 1.0 (0.9-1.3) APTT 32 (26.4-36.2) SECONDS Sodium (137-145) mmol/L Potassium (3.4-5.1) mmol/L Chloride (98-107) mmol/L Carbon Dioxide (22-32) mmol/L BUN (7-17) mg/dL Creatinine (0.52-1.04) mg/dL Estimated GFR (>60) mL/min BUN/Creatinine Ratio (6-22) Glucose (70-100) mg/dL Calcium (8.4-10.2) mg/dL Total Bilirubin (0.2-1.3) mg/dL AST (14-36) IU/L ALT (<35) IU/L Alkaline Phosphatase (38-126) U/L Total Protein (6.3-8.2) g/dL Albumin (3.5-5.0) g/dL Globulin (1.7-4.1) g/dL Albumin/Globulin Ratio (1.0-2.8) Lipase (23-300) U/L Urine RBC 1-5/hpf (0-5/HPF) Urine WBC 5-10/hpf H (0-5/HPF) Ur Squamous Epith Cells 5-10 /hpf H (0-5/HPF) Urine Bacteria Many (>30) H (None) Ur Culture Indicated? Cult not indicated 04/23/20 Range/Units 11:04 WBC (4.5-11.0) X10^3/uL RBC (4.0-5.2) X10^6/uL Hgb (12.0-16.0) g/dL Hct (36-46) % MCV (80-100) fL MCH (26-34) PG MCHC (30-36) % RDW (11.6-14.8) % Plt Count (150-400) X10^3/uL Neut % (Auto) (50-75) % Lymph % (Auto) (25-40) % [place] % (Auto) (3-14) % Eos % (Auto) (2-4) % Baso % (Auto) (0-2) % Neut # (Auto) (1595-8134) /uL Lymph # (Auto) (6298-1343) /uL [place] # (Auto) (0-900) /uL Eos # (Auto) (0-450) /uL Baso # (Auto) (0-100) /uL PT (10.1-12.7) SECONDS INR (0.9-1.3) APTT (26.4-36.2) SECONDS Sodium 141 (137-145) mmol/L Potassium 3.8 (3.4-5.1) mmol/L Chloride 110 H (98-107) mmol/L Carbon Dioxide 25 (22-32) mmol/L BUN 18 H (7-17) mg/dL Creatinine 1.00 (0.52-1.04) mg/dL Estimated GFR 57.1 L (>60) mL/min BUN/Creatinine Ratio 18.0 (6-22) Glucose 135 H (70-100) mg/dL Calcium 8.9 (8.4-10.2) mg/dL Total Bilirubin 0.2 (0.2-1.3) mg/dL AST 19 (14-36) IU/L ALT 21 (<35) IU/L Alkaline Phosphatase 69 (38-126) U/L Total Protein 6.9 (6.3-8.2) g/dL Albumin 3.9 (3.5-5.0) g/dL Globulin 3.0 (1.7-4.1) g/dL Albumin/Globulin Ratio 1.3 (1.0-2.8) Lipase 50 (23-300) U/L Urine RBC (0-5/HPF) Urine WBC (0-5/HPF) Ur Squamous Epith Cells (0-5/HPF) Urine Bacteria (None) Ur Culture Indicated? Point of care testing: Urine Dip Bedside Urine Glucose Negative Bedside Urine Bilirubin - Negative Bedside Urine Ketone - Negative Urine Specific [place] 1.025 Bedside Urine Occult Blood +++ Bedside Urine pH 6.0 Bedside Urine Protein - Negative Bedside Urine Urobilinogen - Negative Bedside Urine Nitrite - Negative Bedside Urine Leukocytes + [address] scan - abdomen/pelvis: Radiologist's Impression: [address] [id number] Scan ReportSigned Patient: Rajiv Wisdom LMR#: [id number]: [id number]:[id number]/Sex: 59 / FDate of Service: 04/23/20Loc: EDAccession Number: [id number] Procedure: CT abdomen pelvis w con Ordering Provider: Donna Frank PROCEDURE: CT ABDOMEN PELVIS W CON INDICATIONS: Left upper abdominal pain TECHNIQUE: After the administration of intravenous contrast, 5 mm thick sections acquired from the diaphragm to the symphysis. 5 mm coronal and sagittal reformats were acquired. For radiation dose reduction, the following was used: automated exposure control, adjustment of mA and/or kV according to patient size. COMPARISON: CT, ABDOMEN/PELVIS WITH CONTRAST, 05/17/2008, 21:51. FINDINGS: Image quality: Excellent. ABDOMEN: Lung bases: Lung bases are clear. Heart size is normal. There is a small hiatal hernia. Solid organs: Liver is normal in size and enhancement. Gallbladder is surgically absent Biliary system is non dilated. Pancreas enhances normally. Spleen is normal in size and enhancement. No adrenal nodules. There is a 3 cm diameter soft mass in the superior pole of the left kidney. A 7 mm fatty nodule is seen in the left kidney compatible with a small angiomyolipoma. A 1.3 cm fat containing mass is seen in the superior pole of the right kidney, also compatible with an angiomyolipoma. Kidneys demonstrate normal size and enhancement, without hydronephrosis. Peritoneum and bowel: Bowel loops demonstrate normal wall thickness and caliber. There are scattered colonic diverticula. No free fluid or air. Nodes and vessels: No retroperitoneal or mesenteric adenopathy by size criteria. Aorta and inferior vena cava are normal in size. Miscellaneous: No ventral hernias. PELVIS: Genitourinary: Bladder wall thickness is normal. Miscellaneous: No inguinal hernias or adenopathy. Bones: No suspicious bony lesions. No vertebral body compression fractures. IMPRESSION: 1. A 3 cm diameter solid mass in the superior pole of left kidney, suspicious for renal cell carcinoma. Recommend urological consultation. 2. 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 3. Diverticulosis without diverticulitis. The result was discussed with Donna Frank in ER. Dictated by: Oswaldo Rodríguez M.D. on 04/23/2020 at 11:58 Approved by: Oswaldo Rodríguez M.D. on 04/23/2020 at 12:43 ECG Data Interpretation: 1025: Sinus rhythm, rate 65, NM interval 182, QTC 424. No ST elevation or ST depression. No T-wave inversion. EKG also viewed Dr. Rutledge per protocol. MDM Narrative Medical decision making narrative: 59-year-old female with history of a recently found renal mass on L kidney, presents to ED for worsening left abd and flank pain. I suspect patient's increased pain may be due to urinary tract infection/pyelonephritis. Patient's urine sample was positive for blood, bacteria, and white blood cells. She does have some left-sided flank pain which may be related to the mass versus infection. However she does not have a white count, she is hemodynamically stable, and well-appearing. Shared decision making was used with patient and patient's caregiver, started on cefpodoxime. I discussed the CT findings with patient and patient's caregiver, discussed mass on kidney. Patient does have follow-up in 2 days. Patient and patient's caregiver were worried about managing pain over the next 2 days. Patient usually takes oxycodone for headaches, she does not have any more at this time. Patient was prescribed a small regimen of oxycodone to help with pain until she is further evaluated. However, we discussed in great detail the risks and benefits of narcotics, we also discussed the risks and benefits of masking pain. She states she will take ibuprofen and only use oxycodone as needed. Renal function appears stable for patient, no signs of electrolyte abnormalities. No signs of other acute abdominal etiology such as perforation, stones, or other sources of infection. Return precautions given for new or worsening symptoms. She agrees to plan of care verbalized understanding. <Carmen Rutledge, DO - Last Filed: 04/24/20 07:50> Lab Data Labs: Lab Results 04/23/20 04/23/20 04/23/20 Range/Units 10:51 11:04 11:04 WBC 8.2 (4.5-11.0) X10^3/uL RBC 4.13 (4.0-5.2) X10^6/uL Hgb 12.9 (12.0-16.0) g/dL Hct 38.7 (36-46) % MCV 93.6 (80-100) fL MCH 31.2 (26-34) PG MCHC 33.4 (30-36) % RDW 14.0 (11.6-14.8) % Plt Count 258 (150-400) X10^3/uL Neut % (Auto) 62.7 (50-75) % Lymph % (Auto) 26.8 (25-40) % [place] % (Auto) 6.3 (3-14) % Eos % (Auto) 3.2 (2-4) % Baso % (Auto) 1.0 (0-2) % Neut # (Auto) 5100 (3521-5055) /uL Lymph # (Auto) 2200 (6136-8229) /uL [place] # (Auto) 500 (0-900) /uL Eos # (Auto) 300 (0-450) /uL Baso # (Auto) 100 (0-100) /uL PT 11.5 (10.1-12.7) SECONDS INR 1.0 (0.9-1.3) APTT 32 (26.4-36.2) SECONDS Sodium (137-145) mmol/L Potassium (3.4-5.1) mmol/L Chloride (98-107) mmol/L Carbon Dioxide (22-32) mmol/L BUN (7-17) mg/dL Creatinine (0.52-1.04) mg/dL Estimated GFR (>60) mL/min BUN/Creatinine Ratio (6-22) Glucose (70-100) mg/dL Calcium (8.4-10.2) mg/dL Total Bilirubin (0.2-1.3) mg/dL AST (14-36) IU/L ALT (<35) IU/L Alkaline Phosphatase (38-126) U/L Total Protein (6.3-8.2) g/dL Albumin (3.5-5.0) g/dL Globulin (1.7-4.1) g/dL Albumin/Globulin Ratio (1.0-2.8) Lipase (23-300) U/L Urine RBC 1-5/hpf (0-5/HPF) Urine WBC 5-10/hpf H (0-5/HPF) Ur Squamous Epith Cells 5-10 /hpf H (0-5/HPF) Urine Bacteria Many (>30) H (None) Ur Culture Indicated? Cult not indicated 04/23/20 Range/Units 11:04 WBC (4.5-11.0) X10^3/uL RBC (4.0-5.2) X10^6/uL Hgb (12.0-16.0) g/dL Hct (36-46) % MCV (80-100) fL MCH (26-34) PG MCHC (30-36) % RDW (11.6-14.8) % Plt Count (150-400) X10^3/uL Neut % (Auto) (50-75) % Lymph % (Auto) (25-40) % [place] % (Auto) (3-14) % Eos % (Auto) (2-4) % Baso % (Auto) (0-2) % Neut # (Auto) (4949-0170) /uL Lymph # (Auto) (2130-2088) /uL [place] # (Auto) (0-900) /uL Eos # (Auto) (0-450) /uL Baso # (Auto) (0-100) /uL PT (10.1-12.7) SECONDS INR (0.9-1.3) APTT (26.4-36.2) SECONDS Sodium 141 (137-145) mmol/L Potassium 3.8 (3.4-5.1) mmol/L Chloride 110 H (98-107) mmol/L Carbon Dioxide 25 (22-32) mmol/L BUN 18 H (7-17) mg/dL Creatinine 1.00 (0.52-1.04) mg/dL Estimated GFR 57.1 L (>60) mL/min BUN/Creatinine Ratio 18.0 (6-22) Glucose 135 H (70-100) mg/dL Calcium 8.9 (8.4-10.2) mg/dL Total Bilirubin 0.2 (0.2-1.3) mg/dL AST 19 (14-36) IU/L ALT 21 (<35) IU/L Alkaline Phosphatase 69 (38-126) U/L Total Protein 6.9 (6.3-8.2) g/dL Albumin 3.9 (3.5-5.0) g/dL Globulin 3.0 (1.7-4.1) g/dL Albumin/Globulin Ratio 1.3 (1.0-2.8) Lipase 50 (23-300) U/L Urine RBC (0-5/HPF) Urine WBC (0-5/HPF) Ur Squamous Epith Cells (0-5/HPF) Urine Bacteria (None) Ur Culture Indicated? Point of care testing: Urine Dip Bedside Urine Glucose Negative Bedside Urine Bilirubin - Negative Bedside Urine Ketone - Negative Urine Specific [place] 1.025 Bedside Urine Occult Blood +++ Bedside Urine pH 6.0 Bedside Urine Protein - Negative Bedside Urine Urobilinogen - Negative Bedside Urine Nitrite - Negative Bedside Urine Leukocytes + 70 Esterase Discharge Plan Departure Patient Disposition: Home Clinical Impression: Kidney mass, Pyelonephritis Instructions: DI for Kidney Infection Activity Restrictions/Additional Instructions: Thank you for entrusting me with your care today. As discussed, is non-remarkable. Your CT showed a 3cm in diameter solid mass on the superior pole of the left kidney. A few angiomamyolipoma (fat nodules) noted on both kidneys. It is possible that the mass may be the cause of pain. However, I am more concerned about an infection given your urine shows bacteria, white blood cells, and blood. I have started you on antibiotic, please take this accordingly. You have been prescribed a narcotic medication, this medication can make you drowsy. Do not drive while using this medication or perform activities that require mental alertness. These medications can also make you constipated, please use [id number] docusate sodium as needed for constipation. Your prescription medications were sent to [facility] pharmacy in [place]. Return emergency department for any new or worsening symptoms including high fever, uncontrollable vomiting, or severe pain. Follow-up with your doctor as planned on Sunday. Prescriptions: New cefpodoxime 200 mg tablet 200 mg PO BID 10 Days Qty: 20 RF: 0 oxycodone 5 mg tablet 5 mg PO Q8H PRN (Reason: pain) Qty: 7 RF: 0 No Action albuterol sulfate [Proventil HFA] 90 MCG/PUFF HFA aerosol inhaler 2 puff INH PRN PRN (Reason: Dyspnea) Qty: 0 RF: 0 cholecalciferol (vitamin D3) 250 mcg (10,000 unit) Tablet 5,000 unit PO QDAY Qty: 0 RF: 0 docusate sodium [DOK] 250 MG capsule 500 mg PO PRN PRN (Reason: Constipation) Qty: 0 RF: 0 [RED RICE YEAST] 600 mg PO BID Qty: 0 RF: 0 gabapentin [Neurontin] 400 MG capsule 3,200 mg PO QDAY Qty: 0 RF: 0 loratadine 10 MG tablet 10 mg PO QDAYP PRN (Reason: Allergy Symptoms) Qty: 0 RF: 0 ibuprofen 200 MG capsule 400 mg PO PRN PRN (Reason: Pain (Scale Score 1-3)) Qty: 0 RF: 0 Systane (PF) 1 EACH dropperette 2 drp OPHTH QDAY Qty: 0 RF: 0 [CRANBERRY] 1 tab PO QDAY Qty: 0 RF: 0 Walker: Front Wheel Qty: 1 RF: 0 omeprazole 20 mg capsule,delayed release(DR/EC) 20 mg PO DAILY Qty: 30 RF: 0 acetaminophen-codeine [Tylenol-Codeine #3] 300-30 mg tablet 1 tab PO Q4-6H PRN (Reason: pain) Qty: 14 RF: 0 fluticasone propionate [Flonase Allergy Relief] 50 mcg/actuation [place],Suspension 2 spray INTRANASAL DAILY PRN (Reason: Allergic Symptoms) RF: 0 oxycodone 5 MG tablet 1 - 2 tab PO Q3HP PRN (Reason: Pain (Scale Score 1-3)) RF: 0 topiramate [Topamax] 50 MG tablet 200 mg PO BID RF: 0 Referrals: Jaya Wyatt DO [Primary Care Provider] - <Carmen Rutledge DO - Last Filed: 04/24/20 07:50> Cosign ED Attending Cosignature Attestation: I was immediately available in the department for consultation. Documentation has been reviewed. I agree with assessment and plan.
[2020-04-23 11:11] LABS: Add Manual Diff / Slide Review NO; Basophils Absolute Auto 100 /uL (0-100); Eosinophils Absolute Auto 300 /uL (0-450); Eosinophils Percent Auto 3.2 % (2-4); Hematocrit 38.7 % (36-46); Hemoglobin 12.9 g/dL (12.0-16.0); Lymphocytes Absolute Auto 2200 /uL (1100-4500); Lymphocytes Percent Auto 26.8 % (25-40); Mean Corpuscular HGB Conc 33.4 % (30-36); Mean Corpuscular Hemoglobin 31.2 PG (26-34); Mean Corpuscular Volume 93.6 fL (80-100); Monocytes Absolute Auto 500 /uL (0-900); Monocytes Percent Auto 6.3 % (3-14); Neutrophils Absolute Auto 5100 /uL (1500-7000); Neutrophils Percent Auto 62.7 % (50-75); Platelet Count 258 X10^3/uL (150-400); Red Blood Cell Count 4.13 X10^6/uL (4.0-5.2); White Blood Cell Count 8.2 X10^3/uL (4.5-11.0)
[2020-04-23 11:12] LABS: Bacteria Urine Many (>30); Culture Indicated Urine Cult Not Indicated; RBC Urine 1-5/HPF (0-5/HPF); Squamous Epithelial Cell Urine 5-10 /HPF (0-5/HPF); WBC Urine 5-10/HPF (0-5/HPF)
[2020-04-23 11:21] LABS: Prothrombin Time 11.5 SECONDS (10.1-12.7)
[2020-04-23 11:23] LABS: PTT Partial Thromboplastin Tim 32 SECONDS (26.4-36.2)
[2020-04-23 11:24] LABS: Alanine Aminotransferase 21 IU/L (<35); Albumin 3.9 g/dL (3.5-5.0); Albumin Globulin Ratio 1.3 (1.0-2.8); Alkaline Phosphatase 69 U/L (38-126); Aspartate Aminotransferase 19 IU/L (14-36); Bilirubin Total 0.2 mg/dL (0.2-1.3); Blood Urea Nitrogen 18 mg/dL (7-17); Calcium 8.9 mg/dL (8.4-10.2); Carbon Dioxide 25 mmol/L (22-32); Chloride 110 mmol/L (98-107); Estimated Glomerular Filt Rate 57.1 mL/min (>60); Glucose 135 mg/dL (70-100); HEMOLYSIS < 15 (0-50); Lipase 50 U/L (23-300); Potassium 3.8 mmol/L (3.4-5.1); Sodium 141 mmol/L (137-145); Total Protein 6.9 g/dL (6.3-8.2)
[2020-04-23] MEDS: SODIUM CHLORIDE 0.9% 1,000 ML 1000 ML IV (11:32)
[2020-04-23] MEDS: ONDANSETRON 4 MG/2 ML INJ IV (11:32)
== END 2020-04-23 14:14 | disposition home or self-care (01) ==
PROVIDERS: Emergency Provider Nurse Practitioner; PCP Family Medicine
DX: N28.89 Other specified disorders of kidney and ureter (principal); N12 Tubulo-interstitial nephritis, not specified as acute or chronic; R31.9 Hematuria, unspecified
CPT/HCPCS: 36415; 74177; 80053; 81003; 81015; 83690; 85025; 85610; 85730; 93005; 93010; 96361; 96374; 99283; 99284; J2405; Q9967

== ENCOUNTER → 2020-04-29 09:43 | Outpatient (CLI) | payer OTHER, MEDICAID, SELFPAY ==
--- NOTE | 2020-04-29 | DI.MRI.S_ITS ---
PROCEDURE: MR ABDOMEN WO/W CON INDICATIONS: other specific disorders of kidney TECHNIQUE: Coronal HASTE through abdomen and pelvis; axial 2D FLASH in- and [id number] (with and without fat saturation), and breath-hold T2 FSE from the hepatic dome to the bottom of the kidneys. Coronal HASTE MR urogram of kidneys and bladder. Dynamic coronal VIBE during IV gadolinium administration; postgadolinium axial VIBE or 2D FLASH with fat saturation from the hepatic dome through the kidneys. COMPARISON: None. FINDINGS: Image quality: Excellent. Genitourinary system: No hydronephrosis or nephrolithiasis is found. There is, however, a likely solid mass at the anterior cortex of the upper left kidney, approaching the upper renal sinus fat, and measuring up to 2.6 cm AP and 3.0 cm transverse. At a similar axial level on the right there is a small water signal sharply demarcated cyst measuring only 1.4 cm in maximal dimension. Other solid organs: No abnormality. Nodes and vessels: No enlarged nodes or evidence of vascular abnormality is seen. Bowel and peritoneum: Normal for age. Lung bases: Normal where well seen. Bones and soft tissues: No evidence of a of metastatic disease. IMPRESSION: There is a complex solid-appearing mass at the upper anterior cortex of the left kidney, potentially malignant by appearance. The patient had difficulty tolerating the MR examination, and terminated the study prior to full completion. Findings in my opinion are worrisome for presence of a primary renal cortical carcinoma. Urology consultation is recommended. Ideally if possible obtaining a pre-and post-contrast CT scan. If necessary the patient should be pre-medicated for CT scanning to ensure completion of the study. Additionally if there are outside comparison studies that demonstrate this mass lesion they should be obtained for review. Dictated by: Usman Ortiz M.D. on 04/29/2020 at 11:39 Approved by: Usman Ortiz M.D. on 04/29/2020 at 11:48
== END ==
PROVIDERS: PCP Family Medicine; Referring Provider Family Medicine; Visit Provider Family Medicine
DX: N28.89 Other specified disorders of kidney and ureter (principal)
CPT/HCPCS: 74183

== ENCOUNTER 2020-07-05 11:59 | Emergency (ER) | payer MEDICARE, MEDICAID, SELFPAY ==
[2020-07-05 12:10] VITALS: BP 166/78; PULSE 58; RESP 14; TEMP 36.4; O2SAT 100
--- NOTE | 2020-07-05 13:13 | DI.RAD.S_ITS ---
PROCEDURE: XR WRIST LT 2V INDICATIONS: fx last week, elbow feels wrong. Currently in orthoglass TECHNIQUE: 2 views of the wrist were acquired. COMPARISON: SN[facility] Outside Film, RG, WRIST COMP MIN 3VW (LT), 07/01/2020, 11:29. FINDINGS: Bones: Impacted distal radial metaphyseal and ulnar styloid fractures. Alignment appears unchanged. There is persistent residual loss of the normal volar angulation of the distal radial articular surface, unchanged. There is healing sclerosis. 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 Soft tissues: No suspicious soft tissue calcifications. IMPRESSION: Unchanged alignment of distal radial and ulnar styloid fractures. Dictated by: Shin Rodriguez M.D. on 07/05/2020 at 13:59 Approved by: Shin Rodriguez M.D. on 07/05/2020 at 14:00
--- NOTE | 2020-07-05 13:13 | DI.RAD.S_ITS ---
PROCEDURE: XR ELBOW LT 2V INDICATIONS: fx last week, elbow feels wrong. Currently in orthoglass TECHNIQUE: 3 views of the elbow were acquired. COMPARISON: None. FINDINGS: Bones: There is suggestion of of coronoid process fracture although not well seen secondary to overlying splint material and superimposition of the radial head. Spurring at the lateral epicondyle, chronic. Soft tissues: Not well seen secondary to splint material. IMPRESSION: Findings suggestive of coronoid process fracture although not well seen secondary to splint. 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 Dictated by: Shin Rodriguez M.D. on 07/05/2020 at 13:56 Approved by: Shin Rodriguez M.D. on 07/05/2020 at 13:59
--- NOTE | 2020-07-05 14:13 | ED.GENADULT ---
HPI - General Adult General Chief complaint: Extremity Injury, Upper Stated complaint: BROKEN LEFT ARM, NEEDS REWRAPPING Time Seen by Provider: 07/05/20 14:08 Source: patient Mode of arrival: Ambulatory Limitations: no limitations History of Present Illness HPI narrative: Patient is a 59-year-old female who within the past week was seen in outside facility after having a fall backwards on an outstretched hand. She is diagnosed with a wrist fracture. She was placed in a splint. She states the splint did get wet along with the sling when she took a shower. She is working on getting a follow-up with Orthopedics but does not have a set date yet. She also describes feeling something ?pop? in her left elbow and since that time has had quite a bit of discomfort. She contacted the orthopedic department who told her to come to the emergency department for evaluation. Related Data Home Medications Medication Instructions Recorded Confirmed [RED RICE YEAST] 600 mg PO BID #0 03/31/10 10/23/19 albuterol sulfate [Proventil HFA] 2 puff INH PRN PRN #0 03/31/10 10/23/19 cholecalciferol (vitamin D3) 5,000 unit PO QDAY #0 03/31/10 10/23/19 docusate sodium [DOK] 500 mg PO PRN PRN #0 03/31/10 10/23/19 Systane (PF) 2 drp OPHTH QDAY #0 10/16/16 10/23/19 [CRANBERRY] 1 tab PO QDAY #0 10/16/16 10/23/19 gabapentin [Neurontin] 3,200 mg PO QDAY #0 10/16/16 10/23/19 ibuprofen 400 mg PO PRN PRN #0 10/16/16 10/23/19 loratadine 10 mg PO QDAYP PRN #0 10/16/16 10/23/19 fluticasone propionate [Flonase 2 spray INTRANASAL DAILY PRN 10/06/19 10/23/19 Allergy Relief] oxycodone 1 - 2 tab PO Q3HP PRN 10/06/19 10/23/19 topiramate [Topamax] 200 mg PO BID 10/06/19 10/23/19 Previous Rx's Medication Instructions Recorded Walker: Front Wheel #1 11/18/16 acetaminophen-codeine 1 tab PO Q4-6H PRN #14 tab 10/10/17 [Tylenol-Codeine #3] omeprazole 20 mg capsule,delayed 20 mg PO DAILY #30 cap 10/23/19 release oxycodone 5 mg PO Q8H PRN #7 tab 04/23/20 Allergies Allergy/AdvReac Type Severity Reaction Status Date / Time adhesive tape [ADHESIVE TAPE] Allergy Severe I GOT Verified 07/05/20 12:17 RED blister aspirin [ASPIRIN] Allergy Unknown UNKNOWN Verified 07/05/20 12:17 REACTION PER PT nitrofurantoin Allergy Unknown UNKNOWN Verified 07/05/20 12:17 [NITROFURANTOIN] REACTION Penicillins [PENICILLINS] Allergy Unknown ITCHING-PT Verified 07/05/20 12:17 DOES NOT REMEMBER SEVERITY Sulfa (Sulfonamide Allergy Unknown UNKNOWN Verified 07/05/20 12:17 Antibiotics) PER PT [SULFA (SULFONAMIDE ANTIBIOTICS)] [id number] Allergy Unknown PT NOT Uncoded 05/03/20 13:00 AWARE OF THIS ALLERGY Review of Systems Constitutional Constitutional: Denies fatigue and Denies headache(s) Eyes Eyes: Denies change in vision ENT Ears, Nose, Mouth, and Throat: Denies headache(s) and Denies sore throat Cardiovascular Cardiovascular: Denies chest pain and Denies dyspnea Respiratory Respiratory: Denies dyspnea Gastrointestinal Gastrointestinal: Denies abdominal pain Musculoskeletal Comments: Left wrist and left elbow and left shoulder pain Integumentary/Breasts Comments: Bruising of the left arm Neurologic Neurologic: Denies behavioral changes and Denies headache(s) Comments: Tingling to the left hand Psychiatric Psychiatric: Denies behavioral changes Endocrine Endocrine: Denies fatigue Hematologic/Lymphatic On Anticoagulants: No Allergic/Immunologic Allergic/Immunologic: Denies urticaria Patient History Medical History Asthma Diabetes Obesity Seizure-like activity Surgical History (System 05/03/20 @ 13:00 by Krystal Caballero) History of back surgery History of total knee arthroplasty Hx of cholecystectomy Hx of knee surgery Hx of neck surgery Hx of shoulder surgery Family History (System 05/03/20 @ 13:00 by Krystal Caabllero) Mother Hypertension Heart disease Diabetes mellitus Stroke Colon cancer Kidney malignancy Father Diabetes mellitus Gallstones Social History (Reviewed 07/05/20 @ 19:19 by SEGUN Galvez marital status: unknown household members: caregiver and none Smoking Status: Never smoker alcohol intake: never substance use type: does not use Smoking Status: Never smoker alcohol intake frequency: 0-2 drinks per day Substance Use Type: does not use Exam Initial Vital Signs Initial Vital Signs: Vital Signs Temperature 97.5 F L 07/05/20 12:10 Pulse Rate 58 L 07/05/20 12:10 Respiratory Rate 14 07/05/20 12:10 Blood Pressure 166/78 H 07/05/20 12:10 Pulse Oximetry 100 07/05/20 12:10 Const General: cooperative and comfortable Limitations: mental status not altered HENMT Head: normal to inspection and normocephalic Eyes General: appearance normal, both eyes and all related structures Resp Effort & Inspection: normal respiratory effort Cardio Pulses: radial pulses present on the left Skin Other: Bruising around the left wrist Neuro Other: Reports decreased sensation to light touch to the left hand but motor function is normal. Extrem Other: Pain with palpation of the left wrist. Her left fingers unremarkable. Does have tenderness to palpation around the left elbow and difficulty flex and extension. She also has discomfort with palpation left shoulder specifically with movement. Psych Appearance: grossly normal and well kempt Procedures Orthopedic Splinting/Casting Injury #1: Side: left Upper Extremity Injury Location: forearm Upper Extremity Immobilizer: sugar tong splint Other Orthopedic Equipment: other (Sling) Post splinting neuro exam: no change Post splinting vascular exam: no change Placed by: Nursing Course Orders Ordered: ED Orders 07/05/20 13:13 XR elbow LT 2V Stat XR wrist LT 2V Stat 07/05/20 14:13 XR elbow LT 2V Stat XR shoulder LT min 2V Stat Vital Signs Vital signs: Vital Signs - 8 hr 07/05/20 12:10 07/05/20 15:38 Temperature 97.5 F L Pulse Rate 58 L 88 Respiratory Rate 14 14 Blood Pressure 166/78 H 168/72 H Pulse Oximetry 100 Medical Decision Making Imaging Data Elbow x-ray: Radiologist's Impression: [address] [id number] ReportSigned Patient: Rajiv Wisdom LMR#: [id number]: 1960Acct:[id number]/Sex: 59 / FDate of Service: 07/05/20Loc: EDAccession Number: [id number] Procedure: XR elbow LT 2V Ordering Provider: Andrew Don D.O. PROCEDURE: XR ELBOW LT 2V INDICATIONS: fx last week, elbow feels wrong. Currently in orthoglass TECHNIQUE: 3 views of the elbow were acquired. COMPARISON: None. FINDINGS: Bones: There is suggestion of of coronoid process fracture although not well seen secondary to overlying splint material and superimposition of the radial head. Spurring at the lateral epicondyle, chronic. Soft tissues: Not well seen secondary to splint material. IMPRESSION: Findings suggestive of coronoid process fracture although not well seen secondary to splint. 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 Dictated by: Shin Rodriguez M.D. on 07/05/2020 at 13:56 Approved by: Shin Rodriguez M.D. on 07/05/2020 at 13:59 Wrist x-ray: Radiologist's Impression: [address] [id number] ReportSigned Patient: Rajiv Wisdom LMR#: [id number]: 1960Acct:[id number]/Sex: 59 / FDate of Service: 07/05/20Lo: EDAccession Number: [id number] Procedure: XR wrist LT 2V Ordering Provider: Andrew Don D.O. PROCEDURE: XR WRIST LT 2V INDICATIONS: fx last week, elbow feels wrong. Currently in orthoglass TECHNIQUE: 2 views of the wrist were acquired. COMPARISON: [facility] Outside Film, RG, WRIST COMP MIN 3VW (LT), 07/01/2020, 11:29. FINDINGS: Bones: Impacted distal radial metaphyseal and ulnar styloid fractures. Alignment appears unchanged. There is persistent residual loss of the normal volar angulation of the distal radial articular surface, unchanged. There is healing sclerosis. 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 Soft tissues: No suspicious soft tissue calcifications. IMPRESSION: Unchanged alignment of distal radial and ulnar styloid fractures. Dictated by: Shin Rodriguez M.D. on 07/05/2020 at 13:59 Approved by: Shin Rodriguez M.D. on 07/05/2020 at 14:00 Elbow x-ray out of splint: Radiologist's Impression: [address] [id number] ReportSigned Patient: Rajiv Wisdom LMR#: [id number]: 1960Acct:[id number]/Sex: 59 / FDate of Service: 07/05/20Loc: EDAccession Number: [id number] Procedure: XR elbow LT 2V Ordering Provider: Andrew Don D.O. PROCEDURE: XR ELBOW LT 2V INDICATIONS: Pain after fall TECHNIQUE: 3 views of the elbow were acquired. COMPARISON: [facility], , XR ELBOW LT 2V, 07/05/2020, 13:14. FINDINGS: Bones: Fracture of the coronoid process/medial aspect of the ulnar trochlea, although radiographically age-indeterminate possibly subacute Soft tissues: No elbow joint effusion. No suspicious soft tissue calcifications. IMPRESSION: Coronoid process/medial aspect of the ulnar trochlea fracture, possibly subacute although recommend clinical correlation. Dictated by: Shin Rodriguez M.D. on 07/05/2020 at 14:41 Approved by: Shin Rodriguez M.D. on 07/05/2020 at 14:44 Shoulder x-ray: Radiologist's Impression: [address] [id number] ReportSigned Patient: Rajiv Wisdom LMR#: [id number]: 1960Acct:[id number]/Sex: 59 / FDate of Service: 07/05/20Loc: EDAccession Number: [id number] Procedure: XR shoulder LT min 2V Ordering Provider: Andrew Don D.O. PROCEDURE: XR SHOULDER LT MIN 2V INDICATIONS: Pain after fall TECHNIQUE: 3 views of the shoulder were acquired. COMPARISON: None. FINDINGS: Bones: No fracture. Mild AC and glenohumeral osteoarthritis Soft tissues: No suspicious soft tissue calcifications. IMPRESSION: Mild degenerative changes. No fracture identified. If the patient's pain or other symptoms persist, consider further evaluation with MRI Dictated by: Shin Rodriguez M.D. on 07/05/2020 at 14:40 Approved by: Shin Rodriguez M.D. on 07/05/2020 at 14:41 [facility] Narrative Medical decision making narrative: Patient is known wrist fracture. The fractures around her elbow were new today. That she was informed of these findings. Her left shoulder is unremarkable. Her splint was replaced and she was given a sling for comfort. She was also given follow-up with Orthopedics but she already knows the phone number and is working on receiving a appointment with them. She was given return precautions and follow-up instructions. She expressed understanding and agreement. Discharge Plan Departure Patient Disposition: Home Clinical Impression: Distal radius fracture, left, Fracture of ulnar styloid, Elbow fracture, left Instructions: DI for Wrist Fracture, How to Take Care of Your Splint Activity Restrictions/Additional Instructions: The splint needs to stay on in state clean and stay dry. Continue to work on a follow-up with the [facility]opedic group. Their phone numbers [phone]. Return to the emergency department for any new or worsening symptoms Prescriptions: No Action albuterol sulfate [Proventil HFA] 90 MCG/PUFF HFA aerosol inhaler 2 puff INH PRN PRN (Reason: Dyspnea) Qty: 0 RF: 0 cholecalciferol (vitamin D3) 250 mcg (10,000 unit) Tablet 5,000 unit PO QDAY Qty: 0 RF: 0 docusate sodium [DOK] 250 MG capsule 500 mg PO PRN PRN (Reason: Constipation) Qty: 0 RF: 0 [RED RICE YEAST] 600 mg PO BID Qty: 0 RF: 0 gabapentin [Neurontin] 400 MG capsule 3,200 mg PO QDAY Qty: 0 RF: 0 loratadine 10 MG tablet 10 mg PO QDAYP PRN (Reason: Allergy Symptoms) Qty: 0 RF: 0 ibuprofen 200 MG capsule 400 mg PO PRN PRN (Reason: Pain (Scale Score 1-3)) Qty: 0 RF: 0 Systane (PF) 1 EACH dropperette 2 drp OPHTH QDAY Qty: 0 RF: 0 [CRANBERRY] 1 tab PO QDAY Qty: 0 RF: 0 Walker: Front Wheel Qty: 1 RF: 0 omeprazole 20 mg capsule,delayed release(DR/EC) 20 mg PO DAILY Qty: 30 RF: 0 acetaminophen-codeine [Tylenol-Codeine #3] 300-30 mg tablet 1 tab PO Q4-6H PRN (Reason: pain) Qty: 14 RF: 0 fluticasone propionate [Flonase Allergy Relief] 50 mcg/actuation [place],Suspension 2 spray INTRANASAL DAILY PRN (Reason: Allergic Symptoms) RF: 0 oxycodone 5 MG tablet 1 - 2 tab PO Q3HP PRN (Reason: Pain (Scale Score 1-3)) RF: 0 topiramate [Topamax] 50 MG tablet 200 mg PO BID RF: 0 oxycodone 5 mg tablet 5 mg PO Q8H PRN (Reason: pain) Qty: 7 RF: 0 Referrals: Jaya Wyatt DO [Primary Care Provider] -
--- NOTE | 2020-07-05 14:45 | PC.NURSE ---
removed splint, dr. loomis aware.
[2020-07-05 15:38] VITALS: BP 168/72; PULSE 88; RESP 14
== END 2020-07-05 15:40 | disposition home or self-care (01) ==
PROVIDERS: Emergency Provider Emergency Medicine; PCP Family Medicine
DX: S52.002A Unspecified fracture of upper end of left ulna, initial encounter for closed fracture (principal); S52.502D Unspecified fracture of the lower end of left radius, subsequent encounter for closed fracture with routine healing; W19.XXXA Unspecified fall, initial encounter
CPT/HCPCS: 29105; 73030; 73070; 73100; 99283; 99284

== ENCOUNTER 2020-07-17 10:12 | Emergency (ER) | payer MEDICARE, MEDICAID, SELFPAY ==
[2020-07-17 10:14] VITALS: BP 162/88; PULSE 88; RESP 16; TEMP 37; O2SAT 100; BMI 34.0
--- NOTE | 2020-07-17 11:13 | ED.SKABFB ---
HPI - Skin/Abscess/Foreign Bdy General Chief complaint: Skin/Abscess/Foreign Body Stated complaint: RASH ON ARM Time Seen by Provider: 07/17/20 10:16 Source: patient Mode of arrival: Ambulatory Limitations: no limitations History of Present Illness HPI narrative: 59-year-old female nonsmoker with history of asthma and recent distal radius fracture and repair presents with family in the chief complaint of an itchy rash on her biceps and some tingling in her fingers. She fell and suffered the injury on July 05 and subsequently had a surgical repair by our local orthopedist team. She admittedly has very sensitive skin and had a reaction probably to some tape that was used to her initial splint that wraps around her biceps and a 1 in wide swath. She states it is itchy and denies any pain. She has had no fever chills and denies any chest pain or shortness of breath. She does have some tingling in her fingers and seems to be worsening over the past few days. She denies any injury nor fall. She is set up with occupational therapy next week. She is otherwise well and free of complaint. She denies any systemic findings such as sore throat, trouble breathing facial swelling, lip swelling or other MD complaint: rash Related Data Home Medications Medication Instructions Recorded Confirmed [RED RICE YEAST] 600 mg PO BID #0 03/31/10 10/23/19 albuterol sulfate [Proventil HFA] 2 puff INH PRN PRN #0 03/31/10 10/23/19 cholecalciferol (vitamin D3) 5,000 unit PO QDAY #0 03/31/10 10/23/19 docusate sodium [DOK] 500 mg PO PRN PRN #0 03/31/10 10/23/19 Systane (PF) 2 drp OPHTH QDAY #0 10/16/16 10/23/19 [CRANBERRY] 1 tab PO QDAY #0 10/16/16 10/23/19 gabapentin [Neurontin] 3,200 mg PO QDAY #0 10/16/16 10/23/19 ibuprofen 400 mg PO PRN PRN #0 10/16/16 10/23/19 loratadine 10 mg PO QDAYP PRN #0 10/16/16 10/23/19 fluticasone propionate [Flonase 2 spray INTRANASAL DAILY PRN 10/06/19 10/23/19 Allergy Relief] oxycodone 1 - 2 tab PO Q3HP PRN 10/06/19 10/23/19 topiramate [Topamax] 200 mg PO BID 10/06/19 10/23/19 Previous Rx's Medication Instructions Recorded Walker: Front Wheel #1 11/18/16 acetaminophen-codeine 1 tab PO Q4-6H PRN #14 tab 10/10/17 [Tylenol-Codeine #3] omeprazole 20 mg capsule,delayed 20 mg PO DAILY #30 cap 10/23/19 release oxycodone 5 mg PO Q8H PRN #7 tab 04/23/20 Allergies Allergy/AdvReac Type Severity Reaction Status Date / Time adhesive tape [ADHESIVE TAPE] Allergy Severe I GOT Verified 07/17/20 10:21 RED blister aspirin [ASPIRIN] Allergy Unknown UNKNOWN Verified 07/17/20 10:21 REACTION PER PT nitrofurantoin Allergy Unknown UNKNOWN Verified 07/17/20 10:21 [NITROFURANTOIN] REACTION Penicillins [PENICILLINS] Allergy Unknown ITCHING-PT Verified 07/17/20 10:21 DOES NOT REMEMBER SEVERITY Sulfa (Sulfonamide Allergy Unknown UNKNOWN Verified 07/17/20 10:21 Antibiotics) PER PT [SULFA (SULFONAMIDE ANTIBIOTICS)] [id number] Allergy Unknown PT NOT Uncoded 05/03/20 13:00 AWARE OF THIS ALLERGY Review of Systems Constitutional Constitutional: Denies chills, Denies fatigue, Denies fever(s), Denies frequent falls, Denies lethargy and Denies weakness Eyes Eyes: Denies change in vision, Denies eye discharge, Denies irritation and Denies loss of vision ENT Ears, Nose, Mouth, and Throat: Denies change in voice, Denies dizziness, Denies neck pain, Denies sore throat and Denies throat swelling Cardiovascular Cardiovascular: Denies chest pain, Denies irregular heart rhythm, Denies lightheadedness, Denies palpitations, Denies dyspnea, Denies dyspnea on exertion and Denies orthopnea Respiratory Respiratory: Denies cough, Denies dyspnea, Denies dyspnea on exertion and Denies wheezing Gastrointestinal Gastrointestinal: Denies abdominal pain, Denies change in bowel habits, Denies diarrhea, Denies nausea and Denies vomiting Musculoskeletal Musculoskeletal: Denies neck pain, Denies numbness and Reports tingling Integumentary/Breasts Skin/Breast: Reports pruritus, Denies erythema, Reports rash and Denies wounds Neurologic Neurologic: Denies behavioral changes, Denies confusion, Denies dizziness, Denies frequent falls, Denies loss of vision, Denies numbness, Reports tingling and Denies weakness Psychiatric Psychiatric: Denies anxiety, Denies behavioral changes, Denies confusion, Denies depression, Denies homicidal ideation and Denies suicidal ideation Endocrine Endocrine: Denies fatigue, Denies flushing and Denies palpitations Hematologic/Lymphatic Hematologic/Lymphatic: Denies easy bruising Allergic/Immunologic Allergic/Immunologic: Denies urticaria, Denies throat swelling and Denies wheezing Patient History Medical History Asthma Diabetes Obesity Seizure-like activity Surgical History History of back surgery History of total knee arthroplasty Hx of cholecystectomy Hx of knee surgery Hx of neck surgery Hx of shoulder surgery Family History Mother Hypertension Heart disease Diabetes mellitus Stroke Colon cancer Kidney malignancy Father Diabetes mellitus Gallstones Social History marital status: unknown household members: caregiver and none Smoking Status: Never smoker alcohol intake: never substance use type: does not use Smoking Status: Never smoker alcohol intake frequency: 0-2 drinks per day Substance Use Type: does not use Exam Narrative Exam Narrative: GEN: AOx3 and in mild distress EYES: Pupils are equal, round, and reactive to light and accommodation. Extraoccular muscles are intact bilaterally. There is no subconjunctival hemorrhage or exudate. CHEST: Lungs are clear to auscultation bilaterally and free of wheezes, rales, or rhonchi. Heart rate is regular rhythm, there are no murmurs, clicks, rubs, or gallops. There is no chest wall tenderness. ABD: Abdomen is soft and nontender. There is no guarding or rebound. Bowel sounds are normal in all 4 quadrants. There is no mass or organomegaly. EXT: Left wrist is in a postoperative splint, fingers demonstrate good color and cap refill but patient does complain that she feels increasing pain and tingling. Splint removed and symptoms immediately resolved. The skin underneath the splint does not demonstrate any evidence of rash. SKIN: Well demarcated pruritic erythematous rash on left bicep, circumferential, about 1 in wide and consistent with the distribution of some taper other contact dermatitis. No drainage, induration or fluctuance Initial Vital Signs Initial Vital Signs: Vital Signs Temperature 98.6 F 07/17/20 10:14 Pulse Rate 88 07/17/20 10:14 Respiratory Rate 16 07/17/20 10:14 Blood Pressure 162/88 H 07/17/20 10:14 Pulse Oximetry 100 07/17/20 10:14 Course Orders Ordered: Discontinued Medications Diphtheria/Tetanus/Acell Pertussis (Tet,Diph,Pertuss(Acell),Vac/Pf 0.5 Ml Syringe) 0.5 ml IM .ONCE ONE Stop: 07/17/20 11:17 Last Admin: 07/17/20 11:20 Dose: Not Given Documented by: HE Vital Signs Vital signs: Vital Signs - 8 hr 07/17/20 10:14 Temperature 98.6 F Pulse Rate 88 Respiratory Rate 16 Blood Pressure 162/88 H Pulse Oximetry 100 MDM - Skin/Abscess/Foreign Bdy MDM Narrative Medical decision making narrative: Patient had some pain tingling that was resolved with removal of the splint. We did replace and other splint much in the fashion of the original. Rate incision is clean, dry and intact and there is no indication of infection. Very the pruritic rash on her arms seems very consistent with contact dermatitis as opposed to an infectious or fungal etiology. I did give instructions to use steroid cream a, follow up closely and we discussed return precautions. Discharge Plan Departure Patient Disposition: Home Clinical Impression: Numbness and tingling Contact dermatitis Qualifiers: Contact dermatitis type: irritant Contact dermatitis trigger: unspecified trigger Qualified Code(s): L24.9 - Irritant contact dermatitis, unspecified cause Instructions: How to Take Care of Your Splint Activity Restrictions/Additional Instructions: *You have been diagnosed with [itchy skin, likely due to an adhesive, and numbness of your fingers which has improved since we have switched the splint.] *What to do: *Please continue to take your regular medications as directed. Please apply a topical steroid such as hydrocortisone to the small area of irritated skin around her biceps twice daily for the next week [ ] New medication prescriptions sent to your pharmacy: [ ] [ ] New medication written as a paper prescription [ x] No new medications given Please follow-up at your appointment as planned *Return to Emergency Department if you should have any new, worsening or concerning symptoms, such as [fever greater than 101 F, shaking chills, worsening pain, persistent vomiting or other bothersome symptoms] Prescriptions: No Action albuterol sulfate [Proventil HFA] 90 MCG/PUFF HFA aerosol inhaler 2 puff INH PRN PRN (Reason: Dyspnea) Qty: 0 RF: 0 cholecalciferol (vitamin D3) 250 mcg (10,000 unit) Tablet 5,000 unit PO QDAY Qty: 0 RF: 0 docusate sodium [DOK] 250 MG capsule 500 mg PO PRN PRN (Reason: Constipation) Qty: 0 RF: 0 [RED RICE YEAST] 600 mg PO BID Qty: 0 RF: 0 gabapentin [Neurontin] 400 MG capsule 3,200 mg PO QDAY Qty: 0 RF: 0 loratadine 10 MG tablet 10 mg PO QDAYP PRN (Reason: Allergy Symptoms) Qty: 0 RF: 0 ibuprofen 200 MG capsule 400 mg PO PRN PRN (Reason: Pain (Scale Score 1-3)) Qty: 0 RF: 0 Systane (PF) 1 EACH dropperette 2 drp OPHTH QDAY Qty: 0 RF: 0 [CRANBERRY] 1 tab PO QDAY Qty: 0 RF: 0 Walker: Front Wheel Qty: 1 RF: 0 omeprazole 20 mg capsule,delayed release(DR/EC) 20 mg PO DAILY Qty: 30 RF: 0 acetaminophen-codeine [Tylenol-Codeine #3] 300-30 mg tablet 1 tab PO Q4-6H PRN (Reason: pain) Qty: 14 RF: 0 fluticasone propionate [Flonase Allergy Relief] 50 mcg/actuation [place],Suspension 2 spray INTRANASAL DAILY PRN (Reason: Allergic Symptoms) RF: 0 oxycodone 5 MG tablet 1 - 2 tab PO Q3HP PRN (Reason: Pain (Scale Score 1-3)) RF: 0 topiramate [Topamax] 50 MG tablet 200 mg PO BID RF: 0 oxycodone 5 mg tablet 5 mg PO Q8H PRN (Reason: pain) Qty: 7 RF: 0 Referrals: Lemme,Jaya, DO [Primary Care Provider] -
--- NOTE | 2020-07-17 11:58 | PC.NURSE ---
wound cleansed with hibiclens prior to splint application. volvar splint left arm placed pt tolerated procedure well.
== END 2020-07-17 12:00 | disposition home or self-care (01) ==
PROVIDERS: Emergency Provider Emergency Medicine; PCP Family Medicine
DX: L24.9 Irritant contact dermatitis, unspecified cause (principal); R20.2 Paresthesia of skin; R20.0 Anesthesia of skin
CPT/HCPCS: 29125; 99282

== ENCOUNTER → 2020-10-21 10:02 | Outpatient (CLI) | payer MEDICARE, MEDICAID, SELFPAY ==
[2020-10-21 11:12] LABS: BUN Creatinine Ratio 15.6 (6-22); Blood Urea Nitrogen 15 mg/dL (7-17); Calcium 9.6 mg/dL (8.4-10.2); Carbon Dioxide 19 mmol/L (22-32); Chloride 113 mmol/L (98-107); Estimated Glomerular Filt Rate 59.9 mL/min (>60); Glucose 104 mg/dL (70-100); HEMOLYSIS < 15 (0-50); Potassium 4.4 mmol/L (3.4-5.1); Sodium 143 mmol/L (137-145)
== END ==
PROVIDERS: PCP Family Medicine; Referring Provider Urology; Visit Provider Urology
DX: N28.89 Other specified disorders of kidney and ureter (principal)
CPT/HCPCS: 36415; 80048

== ENCOUNTER → 2020-12-28 12:38 | Outpatient (CLI) | payer MEDICARE, MEDICAID, SELFPAY ==
--- NOTE | 2020-12-28 | DI.NM.S_ITS ---
PROCEDURE: NM RENAL FLOW AND FUNCTION RADIOPHARMACEUTICAL: 10.0 mCi Tc-99m MAG3 IV. INDICATIONS: Other specified disorders of kidney and ureter TECHNIQUE: The patient was hydrated orally before the examination was begun. After intravenous administration of Tc-99m MAG3, posterior abdominal radionuclide angiogram and sequential (1 minute per frame) renal images were obtained. A time-activity curve for each kidney was generated and analyzed. COMPARISON: [facility], MR, MR ABDOMEN WO/W CON, 04/29/2020, 10:00. [facility], CT, CT ABDOMEN PELVIS W CON, 04/23/2020, 11:35. FINDINGS: Perfusion: There is normal vascular perfusion to both kidneys. Morphology: Kidneys are normal in shape and size. There are no central photopenic regions to suggest dilated collecting systems. The ureters and bladder are visualized, and appear normal in morphology. Function: Both kidneys demonstrate normal cortical tracer uptake, with [id number] activity ranging from 3 to 5 minutes. The right kidney contributes 58% of total renal function. The left kidney contributes 42% of total renal function. There is normal tracer excretion by both kidneys, and subsequent clearance of activity from both renal collecting systems. IMPRESSION: 1. Normal renal flow and function. 2. Renal split function 58% right kidney and 42% left kidney. Dictated by: Symone Mercado MD, PhD on 12/28/2020 at 14:54 Approved by: Symone Mercado MD, PhD on 12/28/2020 at 14:57
== END ==
PROVIDERS: PCP Family Medicine; Referring Provider Urology; Visit Provider Urology
DX: N28.89 Other specified disorders of kidney and ureter (principal)
CPT/HCPCS: 78708; A9562

== ENCOUNTER 2021-09-02 14:10 | Emergency (ER) | payer MEDICARE, MEDICAID, SELFPAY ==
[2021-09-02 14:31] VITALS: BP 172/81; PULSE 90; RESP 16; TEMP 36.7; O2SAT 97; BMI 34.0
--- NOTE | 2021-09-02 14:36 | DI.RAD.S_ITS ---
PROCEDURE: XR ANKLE LT MIN 3V INDICATIONS: ankle pain after fall TECHNIQUE: 3 views of the ankle were acquired. COMPARISON: None. FINDINGS: Bones: Tiny calcification adjacent to tip of medial malleolus is seen which may represent acute avulsion injury in this area. No other fracture or dislocation. Ankle mortise is normally aligned. No suspicious bony lesions. Soft tissues: No tibiotalar joint effusion. Achilles tendon appears normal. IMPRESSION: Finding may represent acute avulsion injury involving tip of medial malleolus suggest clinical correlation. Mild ankle soft tissue swelling. Intact ankle mortise. No other fracture or dislocation. Dictated by: Eloy Rojas M.D. on 09/02/2021 at 15:31 Approved by: Eloy Rojas M.D. on 09/02/2021 at 15:33
--- NOTE | 2021-09-02 14:36 | DI.RAD.S_ITS ---
PROCEDURE: XR KNEE LT 3V INDICATIONS: knee pain after fall TECHNIQUE: 3 views of the knee were acquired. COMPARISON: [facility], CR, XR KNEE RT 1TO2V, 02/20/2019, 10:39. FINDINGS: Bones: No fractures or dislocations. No suspicious bony lesions. Soft tissues: No joint effusion. No suspicious soft tissue calcifications. IMPRESSION: No acute left knee fracture or dislocation. No significant joint effusion. Dictated by: Eloy Rojas M.D. on 09/02/2021 at 15:19 Approved by: Eoly Rojas M.D. on 09/02/2021 at 15:31
--- NOTE | 2021-09-02 14:36 | DI.RAD.S_ITS ---
PROCEDURE: XR HIP W PEL IF DONE LT 2V INDICATIONS: Hip pain after fall TECHNIQUE: AP pelvis with lateral view(s) of the left hip(s). COMPARISON: None. FINDINGS: Bones: No fractures or dislocations. Mild bilateral hip joint osteoarthritic changes are seen. No evidence of avascular necrosis of femoral head. Pelvic ring appears intact. No suspicious bony lesions. Soft tissues: The visualized bowel gas pattern is normal. No suspicious soft tissue calcifications. IMPRESSION: No acute left hip fracture or dislocation. Symmetric appearing mild bilateral hip joint osteoarthritis. Dictated by: Eloy Rojas M.D. on 09/02/2021 at 15:34 Approved by: Eloy Rojas M.D. on 09/02/2021 at 15:34
--- NOTE | 2021-09-02 15:26 | ED_ITS ---
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 Patient endorses swelling of her left knee and left ankle, she can bear weight but states it is so painful that she screamed. Patient uses a cane at baseline, has a right total knee replacement and endorses significant neuropathy and the inability to feel her feet bilaterally. States that she is a previous patient of Dr. Sherrie Pablo from [facility], her primary care provider is Dr. Goss and Dr. Wyatt. Patient denies any new weakness, new sensation deficit, states that safety is a great concern of hers with her new pain and injury. Patient endorses a history of arthritis, denies any immunosuppression. Related Data Home Medications Medication Instructions Recorded Confirmed [RED RICE YEAST] 600 mg PO BID ##0 03/31/10 10/23/19 albuterol sulfate 90 mcg/actuation 2 puff INH PRN PRN Dyspnea ##0 03/31/10 10/23/19 aerosol inhaler (Proventil HFA) cholecalciferol (vitamin D3) 250 5,000 unit PO QDAY ##0 03/31/10 10/23/19 mcg (10,000 unit) tablet docusate sodium 250 mg capsule 500 mg PO PRN PRN Constipation ##0 03/31/10 10/23/19 (DOK) [CRANBERRY] 1 tab PO QDAY ##0 10/16/16 10/23/19 gabapentin 400 mg capsule 3,200 mg PO QDAY ##0 10/16/16 10/23/19 (Neurontin) ibuprofen 200 mg capsule 400 mg PO PRN PRN Pain (Scale 10/16/16 10/23/19 Score 1-3) ##0 loratadine 10 mg tablet 10 mg PO QDAYP PRN Allergy 10/16/16 10/23/19 Symptoms ##0 peg 400-propylene glycol (PF) 0.4 2 drp OPHTH QDAY ##0 10/16/16 10/23/19 %-0.3 % eye drops in a dropperette (Systane (PF)) fluticasone propionate 50 2 spray intranasal DAILY PRN 10/06/19 10/23/19 mcg/actuation nasal Allergic Symptoms spray,suspension (Flonase Allergy Relief) oxycodone 5 mg tablet 1 - 2 tab PO Q3HP PRN Pain (Scale 10/06/19 10/23/19 Score 1-3) topiramate 50 mg tablet (Topamax) 200 mg PO BID 10/06/19 10/23/19 Previous Rx's Medication Instructions Recorded Walker: Front Wheel ##1 11/18/16 acetaminophen 300 mg-codeine 30 mg 1 tab PO Q4-6H PRN pain #14 tabs 10/10/17 tablet (Tylenol-Codeine #3) omeprazole 20 mg capsule,delayed 20 mg PO DAILY #30 caps 10/23/19 release oxycodone 5 mg tablet 5 mg PO Q8H PRN pain #7 tabs 04/23/20 diclofenac sodium 3 % topical gel 1 applic topical BID PRN knee 09/02/21 pain, ankle pain #100 grams hydrocodone 5 mg-acetaminophen 325 1 tab PO BID PRN pain #14 tabs 09/02/21 mg tablet Allergies Allergy/AdvReac Type Severity Reaction Status Date / Time adhesive tape [ADHESIVE TAPE] Allergy Severe I GOT Verified 07/17/20 10:21 RED blister aspirin [ASPIRIN] Allergy Unknown UNKNOWN Verified 07/17/20 10:21 REACTION PER PT nitrofurantoin Allergy Unknown UNKNOWN Verified 07/17/20 10:21 [NITROFURANTOIN] REACTION Penicillins [PENICILLINS] Allergy Unknown ITCHING-PT Verified 07/17/20 10:21 DOES NOT REMEMBER SEVERITY Sulfa (Sulfonamide Allergy Unknown UNKNOWN Verified 07/17/20 10:21 Antibiotics) PER PT [SULFA (SULFONAMIDE ANTIBIOTICS)] [id number] Allergy Unknown PT NOT Uncoded 05/03/20 13:00 AWARE OF THIS ALLERGY Review of Systems <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 Skin: denies rash, itching or wound Neuro: denies numbness, tingling, dizziness Patient History <MINDY Taylor - Last Filed: 09/02/21 19:43> Medical History (Updated 09/17/21 @ 00:01 by ) Asthma Diabetes Obesity Seizure-like activity Surgical History History of back surgery History of total knee arthroplasty Hx of cholecystectomy Hx of knee surgery Hx of neck surgery Hx of shoulder surgery Family History Mother Hypertension Heart disease Diabetes mellitus Stroke Colon cancer Kidney malignancy Father Diabetes mellitus Gallstones Social History marital status: unknown household members: caregiver and none Smoking Status: Never smoker alcohol intake: never substance use type: does not use Smoking Status: Never smoker alcohol intake frequency: 0-2 drinks per day Substance Use Type: does not use Exam <MINDY Taylor - Last Filed: 09/02/21 19:43> Narrative Exam Narrative: Independently reviewed vitals signs and nursing notes. General: cooperative, comfortable, in no acute distress, well groomed Head: atraumatic, symmetrical facial expressions Neck: supple Eyes: equal round and reactive, EOMI, conjunctiva normal Nose: nares patent, no rhinorrhea Mouth/Throat: moist mucus membranes Cardiovascular: regular rate and rhythm, no peripheral edema, warm extremities Respiratory: normal effort, able to speak in complete sentences, no audible wheezing, stridor, or rales. No retractions or tachypnea. GI: abdomen soft, nontender to palpation, nondistended, no masses, no exquisite tenderness with exam, without guarding or rebound. MSK: moves all extremities, neurovascularly intact, no weakness, normal tone, left ankle with tenderness over her lateral malleolus, edema and ecchymosis without motor deficit. Plantar extension and dorsiflexion are intact, DP and PT pulses are 2+, edema on the lateral aspect, no tenderness over CFL or ATFL, patellar tendon of her knee feels intact with tenderness on the lateral aspect of that. No tenderness over LCL or MCL, joint is obviously swollen, ecchymosis present Skin: brisk capillary refill, no rash, no erythema, only ecchymosis present in her left knee and left ankle, no surrounding erythema, open wound Neuro: normal speech and cognition, A&O x3 Psych: mental status is grossly normal, congruent mood, normal affect, pleasant and cooperative Initial Vital Signs Initial Vital Signs: Vital Signs Temperature 98.1 F 09/02/21 14:31 Pulse Rate 90 09/02/21 14:31 Respiratory Rate 16 09/02/21 14:31 Blood Pressure 172/81 H 09/02/21 14:31 Pulse Oximetry 97 09/02/21 14:31 Oxygen Delivery Method 09/02/21 14:31 <Douglas Currie MD - Last Filed: 09/20/21 11:49> Initial Vital Signs Initial Vital Signs: Vital Signs Temperature 98.1 F 09/02/21 14:31 Pulse Rate 90 09/02/21 14:31 Respiratory Rate 16 09/02/21 14:31 Blood Pressure 172/81 H 09/02/21 14:31 Pulse Oximetry 97 09/02/21 14:31 Oxygen Delivery Method 09/02/21 14:31 Course <MINDY Taylor - Last Filed: 09/02/21 19:43> Orders Ordered: Discontinued Medications Hydrocodone Bitart/Acetaminophen (Hydrocodone/Acet 5/325 Tablet) 1 tab PO NOW ONE Stop: 09/02/21 15:26 Last Admin: 09/02/21 15:39 Dose: 1 tab Documented By: REJI Ketorolac Tromethamine (Ketorolac 30 Mg/Ml Vial) 15 mg IM NOW ONE Stop: 09/02/21 15:26 Last Admin: 09/02/21 15:39 Dose: 15 mg Documented By: REJI Vital Signs Vital signs: Vital Signs - 8 hr 09/02/21 14:31 09/02/21 16:27 Temperature 98.1 F Pulse Rate 90 72 Respiratory Rate 16 16 Blood Pressure 172/81 H 148/68 H Pulse Oximetry 97 98 Oxygen Delivery Method Room Air Room Air <Douglas Currie MD - Last Filed: 09/20/21 11:49> Orders Ordered: Discontinued Medications Hydrocodone Bitart/Acetaminophen (Hydrocodone/Acet 5/325 Tablet) 1 tab PO NOW ONE Stop: 09/02/21 15:26 Last Admin: 09/02/21 15:39 Dose: 1 tab Documented By: REJI Ketorolac Tromethamine (Ketorolac 30 Mg/Ml Vial) 15 mg IM NOW ONE Stop: 09/02/21 15:26 Last Admin: 09/02/21 15:39 Dose: 15 mg Documented By: REJI Vital Signs Vital signs: Vital Signs - 8 hr 09/02/21 14:31 09/02/21 16:27 Temperature 98.1 F Pulse Rate 90 72 Respiratory Rate 16 16 Blood Pressure 172/81 H 148/68 H Pulse Oximetry 97 98 Oxygen Delivery Method Room Air Room Air MDM - Extremity Injury (Lower) <MINDY Taylor - Last Filed: 09/02/21 19:43> Imaging Data Extremity x-ray #1: Radiologist's Impression: PROCEDURE:? XR HIP W PEL IF DONE LT 2V ? INDICATIONS:? Hip pain after fall ? TECHNIQUE:? AP pelvis with lateral view(s) of the left hip(s).? ? COMPARISON:? None. ? FINDINGS:? ? Bones:? No fractures or dislocations.? Mild bilateral hip joint osteoarthritic changes are seen.? No evidence of avascular necrosis of femoral head.? Pelvic ring appears intact.? No suspicious bony lesions.? ? Soft tissues:? The visualized bowel gas pattern is normal.? No suspicious soft tissue calcifications.? ? ? IMPRESSION:? No acute left hip fracture or dislocation.? Symmetric appearing mild bilateral hip joint osteoarthritis. ? ? ? Dictated by: Eloy Rojas M.D. on 09/02/2021 at 15:34 ? ? Approved by: Eloy Rojas M.D. on 09/02/2021 at 15:34 ? Extremity x-ray #2: Radiologist's Impression: PROCEDURE:? XR KNEE LT 3V ? INDICATIONS:? knee pain after fall ? TECHNIQUE:? 3 views of the knee were acquired.? ? COMPARISON:? [facility], CR, XR KNEE RT 1TO2V, 02/20/2019, 10:39. ? FINDINGS:? ? Bones:? No fractures or dislocations.? No suspicious bony lesions.? ? Soft tissues:? No joint effusion.? No suspicious soft tissue calcifications.? ? ? IMPRESSION:? No acute left knee fracture or dislocation.? No significant joint effusion. ? ? Dictated by: Eloy Rojas M.D. on 09/02/2021 at 15:19 ? ? Approved by: Eloy Rojas M.D. on 09/02/2021 at 15:31 ? Extremity x-ray #3: Radiologist's Impression: PROCEDURE:? XR ANKLE LT MIN 3V ? INDICATIONS:? ankle pain after fall ? TECHNIQUE:? 3 views of the ankle were acquired.? ? COMPARISON:? None. ? FINDINGS:? ? Bones:? Tiny calcification adjacent to tip of medial malleolus is seen which may represent acute avulsion injury in this area.? No other fracture or dislocation.? Ankle mortise is normally aligned.? No suspicious bony lesions.? ? Soft tissues:? No tibiotalar joint effusion.? Achilles tendon appears normal.? ? ? IMPRESSION:? Finding may represent acute avulsion injury involving tip of medial malleolus suggest clinical correlation.? Mild ankle soft tissue swelling.? Intact ankle mortise.? No other fracture or dislocation. ? ? ? Dictated by: Eloy Rojas M.D. on 09/02/2021 at 15:31 ? ? Approved by: Eloy Rojas M.D. on 09/02/2021 at 15:33 ? MDM Narrative Medical decision making narrative: This is a pleasant 60-year-old female with history of seizures, type 2 diabetes, and balance issues secondary to peripheral neuropathy who presents to the emergency department after mechanical fall this morning in her driveway she talking to her friend. Patient endorses that she has partial seizures and a long standing seizure disorder. Patient reports that she does not think that she had a seizure this morning but cannot be certain, she states that she did not hit her head and she does not have any headache, when she fell she doubt down onto her left side and states that her left leg went away from her body and everything was ?tweaked?. Patient has ecchymosis and edema of her left knee and her lateral left ankle. X-rays of her left hip and left knee are both negative for any acute fracture, dislocation, or significant joint effusion. Her hip x- ray shows symmetric mild appearing bilateral hip joint osteoarthritis. Patient's left ankle x-ray radiology report says finding may represent acute avulsion injury involving the tip of the medial malleolus suggesting clinical correlation mild ankle soft tissue swelling and an intact ankle mortise. Patient has lateral malleolar ankle pain without any tenderness over her medial malleolus, edema is associated with the lateral malleolus and my suspicion is that this is an osteophyte or could be a remote avulsion injury. Patient was fitted in a walking boot, this caused worsened pain and patient reports that this may jeopardize her safety ambulating at home. Instead we chose to set her up with a walker, and Luke bandages to her left ankle and left knee for support. Patient reports that weight-bearing is tolerable and not significantly painful, encouraged her to prioritize her safety and use the safest device necessary to ambulate at home. She uses a cane at baseline but states that the walker will be more stable for her to balance and off weight her left leg. I encourage patient to follow-up with [facility] as she has a history of right knee replacement with Dr. Pablo. Encourage patient to use topical NSAIDs, she was prescribed hydrocodone to use as needed for her pain. Patient was given strict return precautions. She is neurovascularly intact without any motor deficit, open wound, or significant tenderness on exam. Patient is appropriate and amenable to discharge home. Vital signs are stable on repeat examination is unremarkable. Patient has been informed of results. Patient has been given strict return to ER precautions for any new or worsening symptoms. Patient understands to follow up closely with outpatient providers as instructed. Patient understands plan and agrees to discharge home. All questions and concerns answered at this time. Discharge Plan Departure Patient Disposition: Home Clinical Impression: Fall, Left ankle sprain, Hip sprain, Osteoarthritis, Knee sprain Instructions: Ankle Sprain, DI for Knee Sprain, DI for Hip Pain Activity Restrictions/Additional Instructions: *You have been diagnosed with injuries to your left leg: Your left hip, left knee, and left ankle. There likely all sprain with soft tissue injury however your left ankle x-ray shows a possible acute avulsion injury on the medial your ankle bone. You were tender over that area but not as tender on the lateral aspect. Please use Luke bandages to help support and use for compression of your joints. Please follow-up with orthopedics next week, call and make an appointment, a referral has been placed for you. Please use a walker at all times, weight bear only as tolerated if it is not significantly painful. Please return to the emergency department if you have any worsening swelling, if it is cold to touch and does not warm up, if it turns purple, or if you have worsening pain that is out of proportion. I am sorry for your injury, please use your pain medications as needed. Take ibuprofen and Tylenol every 6 hours with food and water, you may take hydrocodone in addition to this for additional pain control. I have sent your medications to [facility] [[email or web address]], I hope you feel better soon. Return for any new weakness, worsening pain, or any other concerns which jeopardize your safety. *What to do: *Please continue to take your regular medications as directed. [x ] New medication prescriptions sent to your pharmacy: [ [facility] [ ] New medication written as a paper prescription [ ] No new medications given *Please follow up with your primary care provider in 2-3 days, call for an appointment. Let them know you were seen in the Emergency Department and that we asked that you be seen for follow-up. We will electronically transmit a record of today's note if your PCP is in our system *If you do not have a primary care provider please contact [phone] to establish care with one of the [facility] primary care providers. *Return to Emergency Department if you should have any new, worsening or concerning symptoms, such as [fever greater than 101F, chills, worsening pain, persistent vomiting or other bothersome symptoms] Prescriptions: New hydrocodone-acetaminophen 5-325 mg tablet 1 tab PO BID PRN (Reason: pain) Qty: 14 0RF diclofenac sodium 3 % gel 1 applic topical BID PRN (Reason: knee pain, ankle pain) Qty: 100 0RF No Action albuterol sulfate [Proventil HFA] 90 MCG/PUFF HFA aerosol inhaler 2 puff INH PRN PRN (Reason: Dyspnea) Qty: 0 cholecalciferol (vitamin D3) 250 mcg (10,000 unit) Tablet 5,000 unit PO QDAY Qty: 0 docusate sodium [DOK] 250 MG capsule 500 mg PO PRN PRN (Reason: Constipation) Qty: 0 [RED RICE YEAST] 600 mg PO BID Qty: 0 gabapentin [Neurontin] 400 MG capsule 3,200 mg PO QDAY Qty: 0 Rx Instructions: 2 tabs in am, 3 tams at noon, 2 tabs evening loratadine 10 MG tablet 10 mg PO QDAYP PRN (Reason: Allergy Symptoms) Qty: 0 ibuprofen 200 MG capsule 400 mg PO PRN PRN (Reason: Pain (Scale Score 1-3)) Qty: 0 Systane (PF) 1 EACH dropperette 2 drp OPHTH QDAY Qty: 0 [CRANBERRY] 1 tab PO QDAY Qty: 0 Walker: Front Wheel Qty: 1 0RF omeprazole 20 mg capsule,delayed release(DR/EC) 20 mg PO DAILY Qty: 30 0RF acetaminophen-codeine [Tylenol-Codeine #3] 300-30 mg tablet 1 tab PO Q4-6H PRN (Reason: pain) Qty: 14 0RF fluticasone propionate [Flonase Allergy Relief] 50 mcg/actuation Stringer,Suspension 2 spray INTRANASAL DAILY PRN (Reason: Allergic Symptoms) oxycodone 5 MG tablet 1 - 2 tab PO Q3HP PRN (Reason: Pain (Scale Score 1-3)) topiramate [Topamax] 50 MG tablet 200 mg PO BID oxycodone 5 mg tablet 5 mg PO Q8H PRN (Reason: pain) Qty: 7 0RF Referrals: [facility] [Provider Group] Sunni Norwood MD [Physician] - Jaya Wyatt DO [Primary Care Provider] - Visit Report Forms: Patient Portal/API <Douglas Currie MD - Last Filed: 09/20/21 11:49> Cosign ED Attending Cosjudyature Attestation: I WAS IMMEDIATELY AVAILABLE FOR CONSULTATION OF THIS PATIENT WAS SEEN AND EVALUATED BY THE [facility] IN THE DEPARTMENT.
[2021-09-02] MEDS: KETOROLAC 30 MG/ML VIAL 15 MG IM (15:39)
[2021-09-02] MEDS: HYDROCODONE/ACET 5/325 TABLET 1 TAB PO (15:39)
[2021-09-02 16:27] VITALS: BP 148/68; PULSE 72; RESP 16; O2SAT 98
== END 2021-09-02 16:32 | disposition home or self-care (01) ==
PROVIDERS: Emergency Provider Nurse Practitioner Critical Care Medicine; PCP Family Medicine
DX: S93.402A Sprain of unspecified ligament of left ankle, initial encounter (principal); S73.102A Unspecified sprain of left hip, initial encounter; M15.9 Polyosteoarthritis, unspecified; S83.92XA Sprain of unspecified site of left knee, initial encounter; W19.XXXA Unspecified fall, initial encounter
CPT/HCPCS: 73502; 73562; 73610; 96372; 99283; J1885

== ENCOUNTER → 2021-09-30 11:12 | Outpatient (CLI) | payer MEDICARE, MEDICAID, SELFPAY ==
--- NOTE | 2021-09-30 11:35 | DI.RAD.S_ITS ---
PROCEDURE: XR CHEST 2V INDICATIONS: PAIN TECHNIQUE: 2 views of the chest were acquired. COMPARISON: [facility], CR, XR CHEST 2 VIEWS, 05/13/2020, 10:53. FINDINGS: Surgical changes and devices: Lower cervical spine fixation hardware incompletely visualized. Lungs and pleura: Lungs are clear. No pleural effusions or pneumothorax. Mediastinum: Mediastinal contours are normal. Heart size is normal. Bones and chest wall: No suspicious bony abnormalities. Soft tissues appear unremarkable. IMPRESSION: No acute cardiopulmonary disease. Dictated by: Phil BELLO Interpreted: Bailey Mendoza MD on 09/30/2021 at 13:13 Transcribed by: CHECO on 09/30/2021 at 13:14 Approved by: Bailey Mendoza M.D. on 09/30/2021 at 15:14
--- NOTE | 2021-09-30 11:35 | DI.CT.S_ITS ---
PROCEDURE: CT ABDOMEN WO/W CON INDICATIONS: Malignant neoplasm of left kidney,Radiculopathy, TECHNIQUE: Optional 5 mm thick noncontrast images acquired from the diaphragm to the iliac crests. After the administration of intravenous contrast, 5 mm thick images again acquired from the diaphragm to the iliac crests in the arterial and urographic phases. 5 mm thick coronal and sagittal reformats were then acquired. For radiation dose reduction, the following was used: automated exposure control, adjustment of mA and/or kV according to patient size. COMPARISON: [facility], CT, CT ABDOMEN PELVIS W CON, 04/23/2020, 11:35. [facility], MR, MR ABDOMEN WO/W CON, 04/29/2020, 10:00. FINDINGS: Image quality: Excellent. Lung bases: No pleural effusion. Genitourinary: Postsurgical changes from partial nephrectomy at the left upper kidney. No definite evidence of residual or recurrent neoplasm. 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 Small nonobstructing stones are present in both kidneys, approximately 2 stones within the right kidney and 3 stones within the left kidney, stones in the range of 1-3 millimeters. No hydronephrosis. Other solid organs: Liver is normal in size and enhancement. Gallbladder is surgically absent. Biliary system is non dilated. Pancreas enhances normally. Spleen is normal in size and enhancement. No adrenal nodules. Peritoneum and bowel: Unenhanced bowel loops are normal in wall thickness and caliber. No free fluid or air. Nodes and vessels: No retroperitoneal or mesenteric adenopathy by size criteria. Aorta and inferior vena cava are normal in caliber. Bones: No suspicious bony lesions. No vertebral body compression fractures. Miscellaneous: No ventral hernias. IMPRESSION: 1. Postsurgical changes from partial nephrectomy at the left upper kidney. No definite evidence of residual or recurrent neoplasm. This exam can serve as a baseline for future follow-up studies. 2. No evidence of abdominal metastatic disease. Dictated by: Gage Nathan M.D. on 09/30/2021 at 17:17 Approved by: Gage Nathan M.D. on 09/30/2021 at 17:36
--- NOTE | 2021-09-30 11:36 | DI.MRI.S_ITS ---
PROCEDURE: MR LUMBAR SPINE WO CON INDICATIONS: Malignant neoplasm of left kidney,Radiculopathy, TECHNIQUE: Noncontrast sagittal T1 spin echo and T2 fast echo, sagittal STIR, and T2 fast spin echo through the lumbar spine. In cases with scoliosis, additional coronal T2 fast spin echo may be performed. COMPARISON: [facility], , MR LUMBAR SPINE WO CON, 05/23/2019, 15:25. FINDINGS: Image quality: Excellent. Alignment and Curvature: There is normal bony alignment. Bone Marrow: Marrow is of normal overall signal. No acute vertebral body compression fractures. Spinal Cord: Conus medullaris terminates at the L1 level. Visualized cord demonstrates normal signal and size. There is clumping of the nerve roots in the lower lumbar spine, consistent with sequelae of arachnoiditis Paraspinous Soft Tissues: No paravertebral masses. T12-L1: Normal appearance. L1-L2: Normal appearance. L2-L3: Mild disc space narrowing. No central or foraminal stenosis. L3-L4: Disc space is preserved. Circumferential disc bulge present without central stenosis. Moderate left and mild right foraminal stenosis L4-L5: Disc space narrowing with circumferential disc bulge and hypertrophic facet joints results in moderate central stenosis, stable from the prior exam. L5-S1: Disc height is preserved. Mild asymmetric right disc bulge without central or foraminal stenosis IMPRESSION: 1. Stable degenerative disc disease and arthropathy resulting in moderate central stenosis at L4-5, stable from the prior exam. 2. Clumping of the nerve roots in the lower lumbar spine consistent with sequelae of prior arachnoiditis. Approved by: Julian Negrete M.D. on 09/30/2021 at 14:47
[2021-09-30 12:15] LABS: BUN Creatinine Ratio 12.7 (6-22); Blood Urea Nitrogen 14 mg/dL (7-17); Estimated Glomerular Filt Rate 58 mL/min (>60)
== END ==
PROVIDERS: PCP Family Medicine; Referring Provider Urology; Visit Provider Urology
DX: C64.2 Malignant neoplasm of left kidney, except renal pelvis (principal); M51.16 Intervertebral disc disorders with radiculopathy, lumbar region; M47.26 Other spondylosis with radiculopathy, lumbar region; N28.89 Other specified disorders of kidney and ureter
CPT/HCPCS: 36415; 71046; 72148; 74170; 82565; 84520; Q9967

== ENCOUNTER → 2022-04-17 11:07 | Outpatient (CLI) | payer OTHER, MEDICAID, SELFPAY ==
--- NOTE | 2022-04-17 | DI.RAD.S_ITS ---
PROCEDURE: XR FOREARM LT 2V INDICATIONS: PAIN TECHNIQUE: 2 views of the forearm were acquired. COMPARISON: None. FINDINGS: Bones: No fractures or dislocations. No suspicious bony lesions. Distal radial fixation. Hardware is intact without evidence of hardware fracture or periprosthetic lucency to suggest loosening. Soft tissues: No suspicious soft tissue calcifications or masses. IMPRESSION: Distal radial fixation. Dictated by: Bailey Mendoza M.D. on 04/17/2022 at 20:09 Approved by: Bailey Mendoza M.D. on 04/17/2022 at 20:10
== END ==
PROVIDERS: PCP Internal Medicine; Visit Provider Physician Assistant
DX: R07.89 Other chest pain (principal)
CPT/HCPCS: 73090

== ENCOUNTER 2022-05-03 11:20 | Emergency (ER) | payer OTHER, MEDICAID, SELFPAY ==
[2022-05-03 11:41] VITALS: BP 128/87; PULSE 80; RESP 16; TEMP 36.3; O2SAT 99; BMI 34.7
[2022-05-03 12:01] VITALS: PULSE 72; O2SAT 99
--- NOTE | 2022-05-03 12:28 | ED.GIBLEED ---
HPI - GI Bleed General Chief complaint: GI Bleed Stated complaint: bleeding in stool Time Seen by Provider: 05/03/22 12:07 Source: patient Mode of arrival: Ambulatory History of Present Illness HPI Narrative: This is a 61-year-old female presents to the emergency department due to reported blood in her stool onset this morning while taking a shower. She states that she is unsure if the blood was in her stool coming from her rectum or from her urine. Patient states that she is not experienced any pain around her abdomen or rectum but she states that she ?always does not feel pain down there?. Patient denies any significant abdominal pain, nausea, vomiting, chest pain, acute shortness of breath, or any other concerning signs or symptoms. Patient's daughter describes the blood as bright red in color. No significant history of NSAID use. Also reports a foul-smelling urine but denies any dysuria, urinary frequency, or urgency. Related Data Home Medications Medication Instructions Recorded Confirmed [RED RICE YEAST] 600 mg PO BID ##0 03/31/10 10/23/19 albuterol sulfate 90 mcg/actuation 2 puff INH PRN PRN Dyspnea ##0 03/31/10 10/23/19 aerosol inhaler (Proventil HFA) cholecalciferol (vitamin D3) 250 5,000 unit PO QDAY ##0 03/31/10 10/23/19 mcg (10,000 unit) tablet docusate sodium 250 mg capsule 500 mg PO PRN PRN Constipation ##0 03/31/10 10/23/19 (DOK) [CRANBERRY] 1 tab PO QDAY ##0 10/16/16 10/23/19 gabapentin 400 mg capsule 3,200 mg PO QDAY ##0 10/16/16 10/23/19 (Neurontin) ibuprofen 200 mg capsule 400 mg PO PRN PRN Pain (Scale 10/16/16 10/23/19 Score 1-3) ##0 loratadine 10 mg tablet 10 mg PO QDAYP PRN Allergy 10/16/16 10/23/19 Symptoms ##0 peg 400-propylene glycol (PF) 0.4 2 drp OPHTH QDAY ##0 10/16/16 10/23/19 %-0.3 % eye drops in a dropperette (Systane (PF)) fluticasone propionate 50 2 spray intranasal DAILY PRN 10/06/19 10/23/19 mcg/actuation nasal Allergic Symptoms spray,suspension (Flonase Allergy Relief) oxycodone 5 mg tablet 1 - 2 tab PO Q3HP PRN Pain (Scale 10/06/19 10/23/19 Score 1-3) topiramate 50 mg tablet (Topamax) 200 mg PO BID 10/06/19 10/23/19 Previous Rx's Medication Instructions Recorded Walker: Front Wheel ##1 11/18/16 acetaminophen 300 mg-codeine 30 mg 1 tab PO Q4-6H PRN pain #14 tabs 10/10/17 tablet (Tylenol-Codeine #3) omeprazole 20 mg capsule,delayed 20 mg PO DAILY #30 caps 10/23/19 release oxycodone 5 mg tablet 5 mg PO Q8H PRN pain #7 tabs 04/23/20 diclofenac sodium 3 % topical gel 1 applic topical BID PRN knee 09/02/21 pain, ankle pain #100 grams hydrocodone 5 mg-acetaminophen 325 1 tab PO BID PRN pain #14 tabs 09/02/21 mg tablet Allergies Allergy/AdvReac Type Severity Reaction Status Date / Time adhesive tape [ADHESIVE TAPE] Allergy Severe I GOT Verified 05/03/22 11:41 RED blister aspirin [ASPIRIN] Allergy Unknown UNKNOWN Verified 05/03/22 11:41 REACTION PER PT nitrofurantoin Allergy Unknown UNKNOWN Verified 05/03/22 11:41 [NITROFURANTOIN] REACTION Penicillins [PENICILLINS] Allergy Unknown ITCHING-PT Verified 05/03/22 11:41 DOES NOT REMEMBER SEVERITY Sulfa (Sulfonamide Allergy Unknown UNKNOWN Verified 05/03/22 11:41 Antibiotics) PER PT [SULFA (SULFONAMIDE ANTIBIOTICS)] [id number] Allergy Unknown PT NOT Uncoded 05/03/22 11:41 AWARE OF THIS ALLERGY Review of Systems Review of Systems Narrative: GENERAL: Denies chills, fatigue, malaise, fever, sweats. HEENT: Denies sinus pain, ear pain, sore throat, difficulty swallowing, dizziness. RESPIRATORY: Denies dyspnea, cough, wheezing, hemoptysis, sputum. CARDIOVASCULAR: Denies chest pain, palpitations, orthopnea, edema, GASTROINTESTINAL: Reports bright red blood in stool, Denies nausea, vomiting, abdominal pain, diarrhea, constipation. : Denies dysuria, frequency, incontinence, hematuria, urinary retention. MUSCULOSKELETAL: denies weakness, joint pain, or bony pain SKIN: Denies rash, skin lesions, or other NEUROLOGIC: Denies weakness, headache, numbness, change in speech, confusion, seizures, incoordination. PSYCHIATRIC: No concerning psychosocial issues. 12 point review of systems is negative except for those stated above Patient History Medical History (Updated 05/18/22 @ 00:00 by ) Asthma Diabetes Obesity Seizure-like activity Surgical History History of back surgery History of total knee arthroplasty Hx of cholecystectomy Hx of knee surgery Hx of neck surgery Hx of shoulder surgery Family History Mother Hypertension Heart disease Diabetes mellitus Stroke Colon cancer Kidney malignancy Father Diabetes mellitus Gallstones Social History marital status: unknown household members: caregiver and none Smoking Status: Never smoker alcohol intake: never substance use type: does not use Smoking Status: Never smoker alcohol intake frequency: 0-2 drinks per day Substance Use Type: does not use Exam Narrative Exam Narrative: GENERAL: Well-developed patient, in mild distress. HEAD: Atraumatic. Normocephalic. EYES: Pupils equal round and reactive. Extraocular motions intact. No scleral icterus. No injection or drainage. ENT: Nose without bleeding, purulent drainage. Throat without erythema, tonsillar hypertrophy or exudate. Airway patent. NECK: Trachea midline. Non tender CARDIOVASCULAR: Regular rate and rhythm without murmurs, gallops, or rubs. RESPIRATORY: Clear to auscultation. Breath sounds equal bilaterally. No wheezes, rales, or rhonchi. GASTROINTESTINAL: Suprapubic abdominal tenderness to palpation. Bright red blood surrounding the rectum, positive stool guaiac test EXTREMITIES: No edema or joint tenderness. BACK: Nontender without deformity or crepitance. No flank tenderness. NEURO: AOx3. SKIN: No rash or erythema of visible areas Initial Vital Signs Initial Vital Signs: Vital Signs Temperature 97.4 F L 05/03/22 11:41 Pulse Rate 80 05/03/22 11:41 Respiratory Rate 16 05/03/22 11:41 Blood Pressure 128/87 05/03/22 11:41 Pulse Oximetry 99 05/03/22 11:41 Oxygen Delivery Method Room Air 05/03/22 11:41 Course Orders Ordered: Discontinued Medications Ondansetron HCl (Ondansetron 4 Mg/2 Ml Inj) 4 mg IV NOW PRN PRN Reason: Nausea And Vomiting Ondansetron HCl (Ondansetron 4 Mg Odt) 4 mg SL NOW PRN PRN Reason: Nausea And Vomiting Pantoprazole Sodium (Pantoprazole 40 Mg Vial) 80 mg IV NOW ONE Stop: 05/03/22 12:07 Last Admin: 05/03/22 12:51 Dose: Not Given Documented By: LUIGI Vital Signs Vital signs: Vital Signs - 8 hr 05/03/22 12:01 05/03/22 12:30 05/03/22 12:31 Pulse Rate 72 68 Respiratory Rate 26 H Blood Pressure 175/107 H Pulse Oximetry 99 99 Oxygen Delivery Method 05/03/22 12:31 05/03/22 13:00 05/03/22 13:00 Pulse Rate 70 65 Respiratory Rate 24 19 Blood Pressure 157/84 H Pulse Oximetry 99 97 Oxygen Delivery Method 05/03/22 13:30 Pulse Rate 65 Respiratory Rate 20 Blood Pressure Pulse Oximetry 96 Oxygen Delivery Method Room Air MDM - GI Bleed Lab Data 05/03/22 12:25 05/03/22 12:25 Labs: Lab Results 05/03/22 05/03/22 05/03/22 Range/Units 12:10 12:25 12:25 WBC 8.4 (4.5-11.0) X10^3/uL RBC 4.30 (4.0-5.2) X10^6/uL Hgb 13.7 (12.0-16.0) g/dL Hct 40.4 (36-46) % MCV 93.9 (80-100) fL MCH 31.8 (26-34) PG MCHC 33.9 (30-36) % RDW 13.7 (11.6-14.8) % Plt Count 278 (150-400) X10^3/uL Neut % (Auto) 68.7 (50-75) % Lymph % (Auto) 22.7 L (25-40) % [place] % (Auto) 6.3 (3-14) % Eos % (Auto) 1.6 L (2-4) % Baso % (Auto) 0.7 (0-2) % Neut # (Auto) 5800 (5423-4029) /uL Lymph # (Auto) 1900 (0207-1196) /uL [place] # (Auto) 500 (0-900) /uL Eos # (Auto) 100 (0-450) /uL Baso # (Auto) 100 (0-100) /uL PT 12.1 (10.1-12.7) SECONDS INR 1.1 (0.9-1.3) APTT 33 (26-36) SECONDS Sodium (137-145) mmol/L Potassium (3.4-5.1) mmol/L Chloride (98-107) mmol/L Carbon Dioxide (22-32) mmol/L BUN (7-17) mg/dL Creatinine (0.52-1.04) mg/dL Estimated GFR (>60) mL/min BUN/Creatinine Ratio (6-22) Glucose (70-100) mg/dL Calcium (8.4-10.2) mg/dL Total Bilirubin (0.2-1.3) mg/dL AST (14-36) IU/L ALT (<35) IU/L Alkaline Phosphatase (38-126) U/L Total Protein (6.3-8.2) g/dL Albumin (3.5-5.0) g/dL Globulin (1.7-4.1) g/dL Albumin/Globulin Ratio (1.0-2.8) Urine RBC 10-30/hpf H (0-5/HPF) Urine WBC 1-5/hpf (0-5/HPF) Ur Squamous Epith Cells 5-10 /hpf H (0-5/HPF) Ur Transition Epith Cell 1-5/hpf (0-5/HPF) Urine Bacteria Few (2-10) H (None) Hyaline Casts 1-5/lpf (None) Urine Mucus 1+ H (Negative) Ur Culture Indicated? Cult not indicated Blood Type Antibody Screen 05/03/22 05/03/22 Range/Units 12:25 12:25 WBC (4.5-11.0) X10^3/uL RBC (4.0-5.2) X10^6/uL Hgb (12.0-16.0) g/dL Hct (36-46) % MCV (80-100) fL MCH (26-34) PG MCHC (30-36) % RDW (11.6-14.8) % Plt Count (150-400) X10^3/uL Neut % (Auto) (50-75) % Lymph % (Auto) (25-40) % [place] % (Auto) (3-14) % Eos % (Auto) (2-4) % Baso % (Auto) (0-2) % Neut # (Auto) (3829-8713) /uL Lymph # (Auto) (6769-1445) /uL [place] # (Auto) (0-900) /uL Eos # (Auto) (0-450) /uL Baso # (Auto) (0-100) /uL PT (10.1-12.7) SECONDS INR (0.9-1.3) APTT (26-36) SECONDS Sodium 142 (137-145) mmol/L Potassium 3.9 (3.4-5.1) mmol/L Chloride 109 H (98-107) mmol/L Carbon Dioxide 21 L (22-32) mmol/L BUN 13 (7-17) mg/dL Creatinine 1.02 (0.52-1.04) mg/dL Estimated GFR > 60 (>60) mL/min BUN/Creatinine Ratio 12.7 (6-22) Glucose 120 H (70-100) mg/dL Calcium 8.7 (8.4-10.2) mg/dL Total Bilirubin 0.4 (0.2-1.3) mg/dL AST 20 (14-36) IU/L ALT 24 (<35) IU/L Alkaline Phosphatase 95 (38-126) U/L Total Protein 7.5 (6.3-8.2) g/dL Albumin 4.1 (3.5-5.0) g/dL Globulin 3.4 (1.7-4.1) g/dL Albumin/Globulin Ratio 1.2 (1.0-2.8) Urine RBC (0-5/HPF) Urine WBC (0-5/HPF) Ur Squamous Epith Cells (0-5/HPF) Ur Transition Epith Cell (0-5/HPF) Urine Bacteria (None) Hyaline Casts (None) Urine Mucus (Negative) Ur Culture Indicated? Blood Type A Positive Antibody Screen Negative Point of Care Testing Stool Occult Blood Positive Urine Dip Bedside Urine Glucose Negative Bedside Urine Bilirubin - Negative Bedside Urine Ketone - Negative Urine Specific [place] 1.030 Bedside Urine Occult Blood +++ Bedside Urine pH 6.0 Bedside Urine Protein ++ 100 Bedside Urine Urobilinogen - Negative Bedside Urine Nitrite - Negative Bedside Urine Leukocytes - Negative Esterase Imaging Data CT scan - abdomen/pelvis: Radiologist's Impression: [address] [address] [address] Scan Report Signed Patient: Rajiv Wisdom MR#: [id number] : 1960 Acct:[id number] Age/Sex: 61 / F Date of Service: 05/03/22 Loc: ED Accession Number: [id number] ?? Procedure: CT abdomen pelvis w con Ordering Provider: Blake Hernandez P.A-C PROCEDURE:? CT ABDOMEN PELVIS W CON ? INDICATIONS:? Hematochezia and suprapubic TTP ? TECHNIQUE:? After the administration of oral and IV contrast, axial sections were acquired from the lung bases to the pubic symphysis.? Coronal and sagittal reformats were performed.? For radiation dose reduction, the following was used:? automated exposure control, adjustment of mA and/or kV according to patient size. ? COMPARISON:? [facility], CT, CT ABDOMEN WO/W CON, 09/30/2021, 13:13.? [facility], CT, CT ABDOMEN PELVIS W CON, 04/23/2020, 11:35. ? FINDINGS:? Image quality:? Excellent.? ? Lung bases:? Unremarkable.? ? Heart:? No significant findings. ? ? ABDOMEN: Liver:? Liver is enlarged measuring 20.4 cm with steatosis..? ? Gallbladder:? Removed. Biliary ducts:? Unremarkable.? ? Pancreas:? Unremarkable.? ? Spleen:? Unremarkable.? ? Adrenal Glands:? Unremarkable.? ? Kidneys and Ureters:? Postsurgical changes are present within the left kidney with removal of previous anterior mass.? Previous fat containing lesions bilaterally suggestive of small angiomyolipomas are present.? Nonobstructing stones are noted bilaterally ranging from 1-3 mm.? No interval change. ? Stomach and Bowel:? Stomach, small bowel loops, and colon are unremarkable.? Peritoneum:? No abnormal intraperitoneal fluid.? No free air.? ? Ventral Wall: ? No hernia.? Abdominal Nodes:? No retroperitoneal or mesenteric adenopathy by size criteria.? Vessels:? Aorta and inferior vena cava are normal in size.? ? PELVIS: Pelvic Organs:? Unremarkable.? ? Bladder:? Unremarkable.? ? Pelvic Nodes: No enlarged lymph nodes.? Miscellaneous: No inguinal hernias are seen. ? ? ? Bones:? Unremarkable.? IMPRESSION:? ? Hepatomegaly with steatosis. ? Partial left nephrectomy.? No evidence of recurrent disease. ? Scattered angiomyolipoma as as well as nonobstructing renal calculi. ? No acute intra-abdominal or pelvic process. ? ? Dictated by: Bailey Mendoza M.D. on 05/03/2022 at 14:22 ? ? Approved by: Bailey Mendoza M.D. on 05/03/2022 at 14:35 ? ECG Data Interpretation: 1304: EKG is normal sinus rhythm rate 63 and free of any signs of ischemia or ectopy. No ST segmental elevation or depression. No T wave inversions MDM Narrative Medical decision making narrative: MDM * differential diagnosis includes but not limited to diverticulosis, internal hemorrhoids, upper GI bleed, lower GI bleed, external hemorrhoids * Prior records reviewed: Patient has not been here for similar complaints in the past * My lab interpretation: CBC unremarkable. No evidence of anemia. CMP unremarkable. BUN/Creatinine ration WNL, noncerning for upper GI bleed. * My imgaing interpretation: CT results as above. No acute processes found. No evidence of diverticulosis. Recommend she follow up with primary care provider for possible colonoscopy. * Clinical Decision Rules/Scores evaluated: None * Independent discussions with: None ED Course: This is a 61-year-old female presents to the emergency department due to suspected lower GI bleed due to suspected internal hemorrhoids. On exam patient had bright red blood surrounding the rectum as well as a positive stool guaiac test. CT abdomen and pelvis ordered with contrast which showed no acute findings that would explain the cause of the rectal bleeding. CBC unremarkable and no evidence of any kind anemia. Patient will be treated for internal hemorrhoids as well as recommendations to follow up with the primary care provider for further evaluation. Shared Decision Making: Discussed plan patient is comfortable with plan Social Considerations: None Disposition: Discharged to home Discharge Plan Departure Patient Disposition: Home Clinical Impression: Bleeding internal hemorrhoids Instructions: DI for Hemorrhoids Activity Restrictions/Additional Instructions: Thank you for coming to the [facility] Emergency Department today. As discussed your CT abdomen and pelvis showed no concerning findings. I suspect the cause of your rectal bleeding is due to internal hemorrhoids. Please consider purchasing an [id number] fiber supplement as this may help with the hemorrhoids. I also recommended follow up with your primary care provider for further evaluation and possible colonoscopy. I hope you feel better soon. Prescriptions: No Action albuterol sulfate [Proventil HFA] 90 MCG/PUFF HFA aerosol inhaler 2 puff INH PRN PRN (Reason: Dyspnea) Qty: 0 cholecalciferol (vitamin D3) 250 mcg (10,000 unit) Tablet 5,000 unit PO QDAY Qty: 0 docusate sodium [DOK] 250 MG capsule 500 mg PO PRN PRN (Reason: Constipation) Qty: 0 [RED RICE YEAST] 600 mg PO BID Qty: 0 gabapentin [Neurontin] 400 MG capsule 3,200 mg PO QDAY Qty: 0 Rx Instructions: 2 tabs in am, 3 tams at noon, 2 tabs evening loratadine 10 MG tablet 10 mg PO QDAYP PRN (Reason: Allergy Symptoms) Qty: 0 ibuprofen 200 MG capsule 400 mg PO PRN PRN (Reason: Pain (Scale Score 1-3)) Qty: 0 Systane (PF) 1 EACH dropperette 2 drp OPHTH QDAY Qty: 0 [CRANBERRY] 1 tab PO QDAY Qty: 0 Walker: Front Wheel Qty: 1 0RF omeprazole 20 mg capsule,delayed release(DR/EC) 20 mg PO DAILY Qty: 30 0RF acetaminophen-codeine [Tylenol-Codeine #3] 300-30 mg tablet 1 tab PO Q4-6H PRN (Reason: pain) Qty: 14 0RF fluticasone propionate [Flonase Allergy Relief] 50 mcg/actuation [place],Suspension 2 spray INTRANASAL DAILY PRN (Reason: Allergic Symptoms) oxycodone 5 MG tablet 1 - 2 tab PO Q3HP PRN (Reason: Pain (Scale Score 1-3)) topiramate [Topamax] 50 MG tablet 200 mg PO BID oxycodone 5 mg tablet 5 mg PO Q8H PRN (Reason: pain) Qty: 7 0RF hydrocodone-acetaminophen 5-325 mg tablet 1 tab PO BID PRN (Reason: pain) Qty: 14 0RF diclofenac sodium 3 % gel 1 applic topical BID PRN (Reason: knee pain, ankle pain) Qty: 100 0RF Referrals: Nas Goss MD [Primary Care Provider] - Stand Alone Forms: Patient Portal/API
[2022-05-03 12:30] VITALS: PULSE 68; RESP 26; O2SAT 99
[2022-05-03 12:31] VITALS: BP 175/107; PULSE 70; RESP 24; O2SAT 99
[2022-05-03 12:41] LABS: Add Manual Diff / Slide Review NO; Basophils Absolute Auto 100 /uL (0-100); Basophils Percent Auto 0.7 % (0-2); Eosinophils Absolute Auto 100 /uL (0-450); Eosinophils Percent Auto 1.6 % (2-4); Hematocrit 40.4 % (36-46); Hemoglobin 13.7 g/dL (12.0-16.0); Lymphocytes Absolute Auto 1900 /uL (1100-4500); Lymphocytes Percent Auto 22.7 % (25-40); Mean Corpuscular HGB Conc 33.9 % (30-36); Mean Corpuscular Hemoglobin 31.8 PG (26-34); Mean Corpuscular Volume 93.9 fL (80-100); Monocytes Absolute Auto 500 /uL (0-900); Monocytes Percent Auto 6.3 % (3-14); Neutrophils Absolute Auto 5800 /uL (1500-7000); Neutrophils Percent Auto 68.7 % (50-75); Platelet Count 278 X10^3/uL (150-400); Red Cell Distribution Width 13.7 % (11.6-14.8); White Blood Cell Count 8.4 X10^3/uL (4.5-11.0)
[2022-05-03 12:51] LABS: INR 1.1 (0.9-1.3); Prothrombin Time 12.1 SECONDS (10.1-12.7)
[2022-05-03 12:54] LABS: PTT Partial Thromboplastin Tim 33 SECONDS (26-36)
[2022-05-03 12:55] LABS: Alanine Aminotransferase 24 IU/L (<35); Albumin 4.1 g/dL (3.5-5.0); Albumin Globulin Ratio 1.2 (1.0-2.8); Alkaline Phosphatase 95 U/L (38-126); Aspartate Aminotransferase 20 IU/L (14-36); BUN Creatinine Ratio 12.7 (6-22); Bilirubin Total 0.4 mg/dL (0.2-1.3); Blood Urea Nitrogen 13 mg/dL (7-17); Calcium 8.7 mg/dL (8.4-10.2); Carbon Dioxide 21 mmol/L (22-32); Chloride 109 mmol/L (98-107); Estimated Glomerular Filt Rate > 60 mL/min (>60); Globulin 3.4 g/dL (1.7-4.1); Glucose 120 mg/dL (70-100); HEMOLYSIS < 15 (0-50); Potassium 3.9 mmol/L (3.4-5.1); Sodium 142 mmol/L (137-145); Total Protein 7.5 g/dL (6.3-8.2)
[2022-05-03 13:00] VITALS: BP 157/84; PULSE 65; RESP 19; O2SAT 97
--- NOTE | 2022-05-03 13:10 | DI.CT.S_ITS ---
PROCEDURE: CT ABDOMEN PELVIS W CON INDICATIONS: Hematochezia and suprapubic TTP TECHNIQUE: After the administration of oral and IV contrast, axial sections were acquired from the lung bases to the pubic symphysis. Coronal and sagittal reformats were performed. For radiation dose reduction, the following was used: automated exposure control, adjustment of mA and/or kV according to patient size. COMPARISON: [facility], CT, CT ABDOMEN WO/W CON, 09/30/2021, 13:13. [facility], CT, CT ABDOMEN PELVIS W CON, 04/23/2020, 11:35. FINDINGS: Image quality: Excellent. Lung bases: Unremarkable. Heart: No significant findings. ABDOMEN: Liver: Liver is enlarged measuring 20.4 cm with steatosis.. Gallbladder: Removed. Biliary ducts: Unremarkable. Pancreas: Unremarkable. Spleen: Unremarkable. Adrenal Glands: Unremarkable. Kidneys and Ureters: Postsurgical changes are present within the left kidney with removal of previous anterior mass. Previous fat containing lesions bilaterally suggestive of small angiomyolipomas are present. Nonobstructing stones are noted bilaterally ranging from 1-3 mm. No interval change. Stomach and Bowel: Stomach, small bowel loops, and colon are unremarkable. Peritoneum: No abnormal intraperitoneal fluid. No free air. Ventral Wall: No hernia. Abdominal Nodes: No retroperitoneal or mesenteric adenopathy by size criteria. Vessels: Aorta and inferior vena cava are normal in size. PELVIS: Pelvic Organs: Unremarkable. Bladder: Unremarkable. Pelvic Nodes: No enlarged lymph nodes. Miscellaneous: No inguinal hernias are seen. Bones: Unremarkable. IMPRESSION: Hepatomegaly with steatosis. Partial left nephrectomy. No evidence of recurrent disease. Scattered angiomyolipoma as as well as nonobstructing renal calculi. No acute intra-abdominal or pelvic process. Dictated by: Bailey Mendoza M.D. on 05/03/2022 at 14:22 Approved by: Bailey Mendoza M.D. on 05/03/2022 at 14:35
[2022-05-03 13:24] LABS: Bacteria Urine Few (2-10); Culture Indicated Urine Cult Not Indicated; Hyaline Casts Urine 1-5/LPF; Mucus Urine 1+ (Negative); RBC Urine 10-30/HPF (0-5/HPF); Squamous Epithelial Cell Urine 5-10 /HPF (0-5/HPF); Transitional Epi Cells Urine 1-5/HPF (0-5/HPF); WBC Urine 1-5/HPF (0-5/HPF)
[2022-05-03 13:30] VITALS: PULSE 65; RESP 20; O2SAT 96
--- NOTE | 2022-05-03 13:32 | PC.NURSE ---
assisted TY with rectal exam.
== END 2022-05-03 15:25 | disposition home or self-care (01) ==
PROVIDERS: Emergency Medicine; Emergency Provider Physician Assistant Medical; PCP Internal Medicine
DX: K64.8 Other hemorrhoids (principal)
CPT/HCPCS: 36415; 74177; 80053; 81003; 81015; 82272; 85025; 85610; 85730; 86850; 86900; 86901; 93005; 99284; Q9967

== ENCOUNTER → 2022-09-28 09:45 | Outpatient (CLI) | payer OTHER, MEDICAID, SELFPAY ==
--- NOTE | 2022-09-28 | DI.RAD.S_ITS ---
PROCEDURE: FL BARIUM SWALLOW INDICATIONS: Dysphagia, unspecified COMPARISON: [facility], CT, CT ABDOMEN PELVIS W CON, 05/03/2022, 13:31. FINDINGS: Function: There is moderate esophageal dysmotility with disorganized esophageal peristalsis. No elicited gastroesophageal reflux. There is normal transit of a calibrated barium tablet through the esophagus into the stomach. Morphology: Air-contrast images demonstrate normal mucosal morphology. Single contrast views show no esophageal strictures, extrinsic mass effects, or diverticula. Limited images of the stomach demonstrate normal appearance. IMPRESSION: 1. Moderate esophageal dysmotility. Dictated by: Oswaldo Rodríguez M.D. on 10/03/2022 at 10:10 Approved by: Oswaldo Rodríguez M.D. on 10/03/2022 at 10:12
== END ==
PROVIDERS: PCP Internal Medicine; Referring Provider Internal Medicine Gastroenterology; Visit Provider Internal Medicine Gastroenterology
DX: R13.10 Dysphagia, unspecified (principal); K22.4 Dyskinesia of esophagus
CPT/HCPCS: 74220

== ENCOUNTER 2022-10-18 09:26 | Day surgery (SDC) | payer OTHER, MEDICAID, SELFPAY ==
--- NOTE | 2022-10-18 | PATH_ITS ---
[facility] Accession Number: [id number] No. of containers..02 Tissue . 01 Material submitted: . PART A: esophagus - ESOPHAGUS PART B: esophagus, E-G Junction - GE JUNCTION NODULE . 01 Diagnosis: A. Esophagus, Biopsy: Squamous epithelium with no diagnostic abnormality. Intraepithelial eosinophils are not increased. Negative for dysplasia and malignancy. . B. Gastroesophageal Junction Nodule, Biopsy: Ulcerated squamocolumnar junctional mucosa. Negative for intestinal metaplasia by Alcian blue stain. No obvious viral cytopathic effects or fungal organisms identified on H/E stain. Negative for dysplasia and malignancy. [facility] 10/31/2022 0919 Local . 01 Electronically signed: . Juanita Angeles MD, Pathologist NPI- [id number] . 01 Gross description: . Part A: ESOPHAGUS: Received in formalin is 1 fragment(s) of chiu, soft tissue measuring 0.3 x 0.2 x 0.1 cm submitted entirely in 1 cassette(s) Part B: GE JUNCTION NODULE: Received in formalin is multiple fragment(s) of chiu, soft tissue measuring 0.5 x 0.3 x 0.1 cm in aggregate submitted entirely in 1 cassette(s) /AA 10/23/2022 2304 Local . 01 Microscopic: . B. An AB-PAS stain was performed to evaluate for intestinal metaplasia and is negative. The control stain showed appropriate reactivity. Additionally, deeper levels were examined. . 01 Pathologist provided ICD-10: R10.9, R10.13 . 01 CPT . 400108, 192661, 432201 Specimen Comment: A courtesy copy of this report has been sent to [phone] Performed at: [address] [place] [address] [place] [address] [address], [place], [place] [id number] MD Kavin Dawn MD Phone: [phone]
[2022-10-18 10:06] VITALS: BP 155/94; PULSE 62; RESP 17; TEMP 36.3; O2SAT 98; BMI 34.7
--- NOTE | 2022-10-18 10:28 | P.HP_ITS ---
History of Present Illness History of Present Illness Date Patient Seen: 10/18/22 Chief complaint: EGD Narrative: Substernal dysphagia [facility] Medical History (Updated 05/18/22 @ 00:00 by ) Asthma Diabetes Obesity Seizure-like activity Surgical History History of back surgery History of total knee arthroplasty Hx of cholecystectomy Hx of knee surgery Hx of neck surgery Hx of shoulder surgery Family History Mother Hypertension Heart disease Diabetes mellitus Stroke Colon cancer Kidney malignancy Father Diabetes mellitus Gallstones Social History marital status: unknown household members: caregiver and none Smoking Status: Never smoker alcohol intake: never substance use type: does not use Meds Home Medications and Allergies Home Medications Medication Instructions Recorded Confirmed Type [RED RICE YEAST] 600 mg PO BID ##0 03/31/10 10/23/19 History albuterol sulfate 90 mcg/actuation 2 puff INH PRN PRN Dyspnea ##0 03/31/10 10/23/19 History aerosol inhaler (Proventil HFA) cholecalciferol (vitamin D3) 250 5,000 unit PO QDAY ##0 03/31/10 10/23/19 History mcg (10,000 unit) tablet docusate sodium 250 mg capsule 500 mg PO PRN PRN Constipation ##0 03/31/10 10/23/19 History (DOK) [CRANBERRY] 1 tab PO QDAY ##0 10/16/16 10/23/19 History gabapentin 400 mg capsule 3,200 mg PO QDAY ##0 10/16/16 10/23/19 History (Neurontin) ibuprofen 200 mg capsule 400 mg PO PRN PRN Pain (Scale 10/16/16 10/23/19 History Score 1-3) ##0 loratadine 10 mg tablet 10 mg PO QDAYP PRN Allergy 10/16/16 10/23/19 History Symptoms ##0 peg 400-propylene glycol (PF) 0.4 2 drp OPHTH QDAY ##0 10/16/16 10/23/19 History %-0.3 % eye drops in a dropperette (Systane (PF)) Walker: Front Wheel ##1 11/18/16 10/23/19 Rx acetaminophen 300 mg-codeine 30 mg 1 tab PO Q4-6H PRN pain #14 tabs 10/10/17 10/23/19 Rx tablet (Tylenol-Codeine #3) fluticasone propionate 50 2 spray intranasal DAILY PRN 10/06/19 10/23/19 History mcg/actuation nasal Allergic Symptoms spray,suspension (Flonase Allergy Relief) oxycodone 5 mg tablet 1 - 2 tab PO Q3HP PRN Pain (Scale 10/06/19 10/23/19 History Score 1-3) topiramate 50 mg tablet (Topamax) 200 mg PO BID 10/06/19 10/17/22 History omeprazole 20 mg capsule,delayed 20 mg PO DAILY #30 caps 10/23/19 10/23/19 Rx release oxycodone 5 mg tablet 5 mg PO Q8H PRN pain #7 tabs 04/23/20 Rx diclofenac sodium 3 % topical gel 1 applic topical BID PRN knee 09/02/21 Rx pain, ankle pain #100 grams hydrocodone 5 mg-acetaminophen 325 1 tab PO BID PRN pain #14 tabs 09/02/21 Rx mg tablet ezetimibe 10 mg tablet 10 mg PO DAILY 10/17/22 10/17/22 History Allergies Allergy/AdvReac Type Severity Reaction Status Date / Time adhesive tape [ADHESIVE TAPE] Allergy Severe I GOT Verified 05/03/22 11:41 RED blister aspirin [ASPIRIN] Allergy Unknown UNKNOWN Verified 05/03/22 11:41 REACTION PER PT nitrofurantoin Allergy Unknown UNKNOWN Verified 05/03/22 11:41 [NITROFURANTOIN] REACTION Penicillins [PENICILLINS] Allergy Unknown ITCHING-PT Verified 05/03/22 11:41 DOES NOT REMEMBER SEVERITY Sulfa (Sulfonamide Allergy Unknown UNKNOWN Verified 05/03/22 11:41 Antibiotics) PER PT [SULFA (SULFONAMIDE ANTIBIOTICS)] [id number] Allergy Unknown PT NOT Uncoded 05/03/22 11:41 AWARE OF THIS ALLERGY Exam Narrative Exam Narrative: Oropharynx free of lesions Chest clear to auscultation percussion Cardiac exam reveals no S3 or murmur Assessment & Plan Assessment & Plan narrative: Substernal dysphagia need to evaluate and possibly treat with dilation. Risks, benefits, alternatives have been explained.
--- NOTE | 2022-10-18 10:28 | PM.OP.EGD ---
Operative Date/Time/Diagnoses Date of procedure: 10/18/22 Pre-op diagnosis: See indication and findings Procedure & Clinicians Study performed: EGD Indications: Substernal dysphagia Surgeon: Reyes Preciado Procedure Notes Procedure in detail: After informed consent was obtained the patient was placed in left lateral decubitus position. The video upper scope placed into the oropharynx and with the patient's help swallowed into the esophagus. The esophagus stomach and duodenum were carefully examined. On withdrawal retroflexed view the GE junction was performed. The scope was removed. The patient tolerated procedure well. Blood loss none Complications none Sedation mac Findings 1. Some mild irregularity at the GE junction involving approximately 30-40%. This was just distal to the squamocolumnar junction. Biopsies were taken multiple times to rule out neoplasia 2. No evidence of distal esophageal stricture 3. Longitudinal markings in the esophagus biopsies taken to rule out eosinophilic esophagitis 4. Normal stomach 5. Normal duodenal bulb and sweep We will merely await her biopsy results before suggesting any further workup.
[2022-10-18] MEDS: LACTATED RINGERS 1,000 ML 125 ML IV (10:35)
[2022-10-18 11:16] VITALS: BP 137/84; PULSE 72; RESP 16; TEMP 35.8; O2SAT 94
[2022-10-18 11:21] VITALS: BP 147/92; PULSE 69; RESP 16; O2SAT 94
[2022-10-18 11:26] VITALS: BP 159/97; PULSE 71; RESP 18; TEMP 36.5; O2SAT 97
[2022-10-18 11:33] VITALS: BP 162/106; PULSE 65; RESP 16; TEMP 36.5; O2SAT 97
[2022-10-18 11:51] VITALS: BP 166/90; PULSE 65; RESP 12; TEMP 36.2; O2SAT 98
== END 2022-10-18 11:53 | disposition home or self-care (01) ==
PROVIDERS: PCP Internal Medicine; Referring Provider Internal Medicine Gastroenterology; Visit Provider Internal Medicine Gastroenterology
PROC: 0DJ08ZZ Inspection of Upper Intestinal Tract, Via Natural or Artificial Opening Endoscopic (ICD-10-PCS; CPT 43235; principal; 2022-10-18 11:00)
DX: R13.19 Other dysphagia (principal)
CPT/HCPCS: 43239; J2704

== ENCOUNTER → 2022-10-25 15:14 | Outpatient (CLI) | payer OTHER, MEDICAID, SELFPAY ==
--- NOTE | 2022-10-25 | DI.RAD.S_ITS ---
PROCEDURE: XR CHEST 2V INDICATIONS: Malignant neoplasm of left kidney, except renal pelvis TECHNIQUE: 2 views of the chest were acquired. COMPARISON: [facility], KATELYN, XR CHEST 2V, 09/30/2021, 12:06. [facility], [place], CHEST 1 VIEW, 10/16/2016, 12:14. FINDINGS: Surgical changes and devices: Partially visualized cervical spine ACDF hardware. Lungs and pleura: Lungs are clear. No pleural effusions or pneumothorax. Mediastinum: Mediastinal contours are normal. Heart size is normal. Bones and chest wall: No suspicious bony abnormalities. Soft tissues appear unremarkable. IMPRESSION: No acute cardiopulmonary process. Dictated by: Juancarlos Chapin M.D. on 10/25/2022 at 16:42 Approved by: Juancarlos Chapin M.D. on 10/25/2022 at 16:43
== END ==
PROVIDERS: PCP Internal Medicine; Referring Provider Internal Medicine; Visit Provider Internal Medicine
DX: C64.2 Malignant neoplasm of left kidney, except renal pelvis (principal)
CPT/HCPCS: 71046

== ENCOUNTER → 2022-10-25 15:29 | Outpatient (CLI) | payer OTHER, MEDICAID, SELFPAY ==
--- NOTE | 2022-10-25 | DI.US.S_ITS ---
PROCEDURE: US ABDOMEN COMPLETE INDICATIONS: Malignant neoplasm of left kidney, except renal pelvis TECHNIQUE: Real-time scanning was performed of the abdominal and retroperitoneal organs, with image documentation. COMPARISON: CT abdomen pelvis 05/03/2022. FINDINGS: Liver: Liver is poorly visualized and accurate measurement of size is unable to be obtained. There is increased hepatic echogenicity. Gallbladder: Surgically absent Biliary ducts: Intrahepatic bile ducts are non-dilated. Extrahepatic bile duct caliber measures 6.1 mm. Normal is 6-7 mm or less in diameter, or 10 mm or less post-cholecystectomy. Pancreas: Visualized portions of the pancreas are sonographically normal. Spleen: Spleen is normal in size and homogeneous in echotexture. Kidneys: Kidneys are normal in size and echotexture. Right kidney measures 10.5 cm long; left kidney measures 10.5 cm long. Bilateral nonobstructing calculi. The largest stone on the right measures 8.0 mm and the largest stone on the left measures 4 mm. No hydronephrosis. Echogenic area in the right superior posterior cortex measuring 1.7 x 1.8 by 2.0 centimeters, likely corresponds to fat containing mass seen on recent CT 05/03/2022 consistent with angiomyolipoma. Aorta: Visualized mid and distal aorta is normal in caliber at less than 3 cm. The proximal aorta is not well visualized. Iliacs: Proximal common iliac arteries are normal in caliber at less than 2.5 cm. IVC: Not well seen. Miscellaneous: No free abdominal fluid. IMPRESSION: 1. Increased hepatic echogenicity consistent with hepatic steatosis. 2. Bilateral non-obstructing renal calculi measuring up to 8 millimeters on the right and 4 millimeters on the left. No hydronephrosis. 3. Echogenic mass in the superior posterior right renal cortex likely corresponds to angiomyolipoma seen on recent CT 05/03/2022. Approved by: Phyllis Alfonso M.D. on 10/26/2022 at 11:25
== END ==
PROVIDERS: PCP Internal Medicine; Referring Provider Internal Medicine; Visit Provider Internal Medicine
DX: C64.2 Malignant neoplasm of left kidney, except renal pelvis (principal); N20.0 Calculus of kidney; N28.9 Disorder of kidney and ureter, unspecified
CPT/HCPCS: 71046; 76700

== ENCOUNTER → 2022-12-25 13:42 | Outpatient (ROUT) | payer OTHER, MEDICAID, SELFPAY ==
[2022-12-26 12:08] LABS: Candida species Negative (Negative); Gardnerella vaginalis Negative (Negative); Trichomoas vaginalis Negative (Negative)
== END ==
PROVIDERS: PCP Internal Medicine; Visit Provider Physician Assistant Medical
DX: N89.8 Other specified noninflammatory disorders of vagina (principal)
CPT/HCPCS: 87480; 87510; 87660

== ENCOUNTER → 2023-02-01 10:23 | Outpatient (CLI) | payer OTHER, MEDICAID, SELFPAY ==
--- NOTE | 2023-02-01 10:25 | DI.RAD.S_ITS ---
PROCEDURE: XR HAND LT MIN 3V INDICATIONS: left wrist and hand pain TECHNIQUE: 3 views of the hand(s) acquired. COMPARISON: [facility], , HAND 3V RIGHT, 09/11/2008, 11:47. FINDINGS: Bones: Volar surgical plate and screw fixation of distal radius is intact with no perihardware lucency to suggest hardware loosening. Mildly displaced remote ulnar styloid fracture. No acute fracture or dislocation. Alignment is anatomic. No suspicious bony lesions. Soft tissues: No suspicious soft tissue calcifications. IMPRESSION: 1. Volar surgical plate and screw fixation is intact, without complication. 2. No acute fracture or dislocation. If there is point tenderness of the scaphoid, consider repeat radiograph in 7-10 days. Dictated by: Gasper Agudelo M.D. on 02/01/2023 at 17:11 Approved by: Gasper Agudelo M.D. on 02/01/2023 at 17:21
== END ==
PROVIDERS: PCP Internal Medicine; Referring Provider Physician Assistant; Visit Provider Physician Assistant
DX: M79.642 Pain in left hand (principal); M25.532 Pain in left wrist
CPT/HCPCS: 73130

== ENCOUNTER → 2023-05-03 10:13 | Outpatient (CLI) | payer OTHER, MEDICAID, SELFPAY ==
--- NOTE | 2023-05-03 10:24 | DI.RAD.S_ITS ---
PROCEDURE: XR KNEE LT 3V INDICATIONS: BILAT KNEE PAIN TECHNIQUE: 3 views of the knee were acquired. COMPARISON: [facility], , XR KNEE LT 3V, 09/02/2021, 14:26. FINDINGS: Bones: No fractures or dislocations. No suspicious bony lesions. [id number] tricompartmental degenerative change most severe medially. No visualized erosions. Soft tissues: No joint effusion. No suspicious soft tissue calcifications. IMPRESSION: Tricompartmental arthritic changes above. Dictated by: Bailey Mendoza M.D. on 05/03/2023 at 15:07 Approved by: Bailey Mendoza M.D. on 05/03/2023 at 15:07
--- NOTE | 2023-05-03 10:24 | DI.RAD.S_ITS ---
PROCEDURE: XR KNEE RT 3V INDICATIONS: BILAT KNEE PAIN TECHNIQUE: 3 views of the knee were acquired. COMPARISON: [facility], KATELYN, XR KNEE RT 1TO2V, 02/20/2019, 10:39. [facility], K[place]N, XR KNEE LT 3V, 09/02/2021, 14:26. FINDINGS: Bones: No fractures or dislocations. No suspicious bony lesions. Knee arthroplasty. Hardware is intact without hardware fracture or periprosthetic lucency to suggest loosening. Alignment is stable. Soft tissues: No joint effusion. No suspicious soft tissue calcifications. IMPRESSION: Stable appearance of knee arthroplasty. Dictated by: Bailey Mendoza M.D. on 05/03/2023 at 15:07 Approved by: Bailey Mendoza M.D. on 05/03/2023 at 15:08
== END ==
PROVIDERS: PCP Internal Medicine; Referring Provider Physician Assistant; Visit Provider Physician Assistant
DX: M25.562 Pain in left knee (principal); M25.561 Pain in right knee; Z96.651 Presence of right artificial knee joint
CPT/HCPCS: 73562

== ENCOUNTER → 2023-09-07 08:59 | Outpatient (CLI) | payer MEDICARE, MEDICAID, SELFPAY ==
--- NOTE | 2023-09-07 09:02 | DI.MRI.S_ITS ---
PROCEDURE: MR THORACIC SPINE WO CON INDICATIONS: RADICULOPATHY,THORACIC REGION TECHNIQUE: Noncontrast sagittal T1 spine echo and T2 fast spin echo, sagittal STIR, and T2 fast spin echo through the thoracic spine. COMPARISON: None. FINDINGS: Image quality: Excellent. Alignment and Curvature: There is normal bony alignment. ACDF of C5 through C7. Bone Marrow: Marrow is of normal overall signal. No acute vertebral body compression fractures. Hemangioma in the T2 vertebral body. Loss of disc desiccation at T6-7. Spinal Cord: Visualized spinal cord is normal in size and signal. Paraspinous Soft Tissues: No paravertebral masses. Miscellaneous: On axial images, central canal and foramina appear widely patent at all scanned levels. IMPRESSION: No abnormal findings to explain the patient's radiculopathy. No acute, displaced fracture or traumatic subluxation. Dictated by: Gregg Rothman M.D. on 09/07/2023 at 10:51 Approved by: Gregg Rothman M.D. on 09/07/2023 at 10:53
== END ==
PROVIDERS: PCP Internal Medicine; Referring Provider Physical Medicine & Rehabilitation; Visit Provider Physical Medicine & Rehabilitation
DX: M54.14 Radiculopathy, thoracic region (principal); Z98.1 Arthrodesis status
CPT/HCPCS: 72146

== ENCOUNTER → 2023-12-31 11:09 | Outpatient (CLI) | payer MEDICAID, OTHER, SELFPAY ==
--- NOTE | 2023-12-31 11:17 | DI.RAD.S_ITS ---
PROCEDURE: XR CHEST 2V INDICATIONS: COUGH TECHNIQUE: 2 views of the chest were acquired. COMPARISON: [facility], CR, XR CHEST 2V, 10/25/2022, 15:36. FINDINGS: Surgical changes and devices: None. Lungs and pleura: Lungs are clear. No pleural effusions or pneumothorax. Mediastinum: Mediastinal contours are normal. Heart size is normal. Bones and chest wall: No suspicious bony abnormalities. Soft tissues appear unremarkable. IMPRESSION: No acute cardiopulmonary abnormality is seen. Approved by: Phyllis Alfonso M.D.,Ph.D. on 01/01/2024 at 1:11
== END ==
PROVIDERS: PCP Internal Medicine; Referring Provider Internal Medicine; Visit Provider Internal Medicine
DX: J45.30 Mild persistent asthma, uncomplicated (principal); R05.9 Cough, unspecified
CPT/HCPCS: 71046

== ENCOUNTER → 2024-01-22 09:43 | Outpatient (CLI) | payer MEDICARE, MEDICAID, SELFPAY ==
--- NOTE | 2024-01-22 | DI.CT.S_ITS ---
PROCEDURE: CT ABDOMEN PELVIS W CON INDICATIONS: Malignant neoplasm of left kidney, except renal pelvis TECHNIQUE: After the administration of intravenous contrast, axial sections acquired from the lung bases to the pubic symphysis. Coronal and sagittal reformats were performed. For radiation dose reduction, the following was used: automated exposure control, adjustment of mA and/or kV according to patient size. COMPARISON: [facility], CT, CT ABDOMEN PELVIS W CON, 04/23/2020, 11:35. [facility], CT, CT ABDOMEN PELVIS W CON, 05/03/2022, 13:31. FINDINGS: Image quality: Diagnostic. Lower Chest: No significant findings. ABDOMEN: Liver: No solid mass. Prominent size. Gallbladder: Absent. Biliary ducts: No biliary dilation. Pancreas: No ductal dilation. Spleen: Size is within normal limits. Adrenal Glands: No adrenal nodules. Kidneys and Ureters: Left renal scarring is stable. Nonobstructing left kidney stones. No hydronephrosis. Right kidney superior pole angiomyolipoma measuring 1.5 cm, (2/43), unchanged. Mid left kidney angiomyolipoma measuring 0.8 cm, (2/42), unchanged. Several renal cortical hypodensities which are too small to further characterize. Grossly similar. Stomach and Bowel: Normal colonic caliber, without significant wall thickening. A few colonic diverticuli. Normal appendix. No small bowel obstruction. Peritoneum: No abnormal intraperitoneal fluid. No free air. Ventral Wall: No significant ventral hernia. Abdominal Nodes: No retroperitoneal or mesenteric adenopathy by size criteria. Vessels: Aorta and inferior vena cava are normal in size. PELVIS: Pelvic Organs: Anteverted uterus. Bladder: No bladder wall thickening, accounting for underdistention. Pelvic Nodes: No enlarged lymph nodes. Miscellaneous: No inguinal hernias are seen. Bones: No aggressive osseous abnormality. IMPRESSION: 1. Stable post treatment changes at the left kidney. 2. Small renal angiomyolipomas are unchanged. 3. Small nonobstructing left kidney stones. Dictated by: Guerrero Samaniego M.D. on 01/22/2024 at 19:00 Approved by: Guerrero Samaniego M.D. on 01/22/2024 at 19:11
[2024-01-22 10:26] LABS: Estimated Glomerular Filt Rate 56 mL/min (>60)
== END ==
PROVIDERS: Radiology Diagnostic Radiology; PCP Internal Medicine; Referring Provider Internal Medicine; Visit Provider Internal Medicine
DX: C64.2 Malignant neoplasm of left kidney, except renal pelvis (principal); J45.30 Mild persistent asthma, uncomplicated; N20.0 Calculus of kidney; D17.71 Benign lipomatous neoplasm of kidney
CPT/HCPCS: 36415; 74177; 82565; Q9967

== ENCOUNTER → 2024-11-20 11:52 | Outpatient (CLI) | payer MEDICARE, MEDICAID, SELFPAY ==
[2024-11-20 12:18] LABS: Add Manual Diff / Slide Review NO; Hematocrit 42.1 % (36-46); Hemoglobin 14.2 g/dL (12.0-16.0); Lymphocytes Absolute Auto 2100 /uL (1100-4500); Mean Corpuscular HGB Conc 33.8 % (30-36); Mean Corpuscular Hemoglobin 31.4 PG (26-34); Mean Corpuscular Volume 93.0 fL (80-100); Platelet Count 309 X10^3/uL (150-400)
[2024-11-20 12:25] LABS: Hemoglobin A1C% w Est Avg Glu 7.4 % (4.0-6.0)
[2024-11-20 12:41] LABS: Alanine Aminotransferase 18 IU/L (<35); Albumin 4.3 g/dL (3.5-5.0); Albumin Globulin Ratio 1.3 (1.0-2.8); Alkaline Phosphatase 91 U/L (38-126); Blood Urea Nitrogen 18 mg/dL (7-17); Calcium 9.4 mg/dL (8.4-10.2); Carbon Dioxide 20 mmol/L (22-32); Chloride 107 mmol/L (98-107); Cholesterol 239 mg/dL (140-199); Estimated Glomerular Filt Rate > 60 mL/min (>60); Globulin 3.2 g/dL (1.7-4.1); Glucose 172 mg/dL (70-99); HDL Cholesterol 58 mg/dL (40-60); HEMOLYSIS < 15 (0-50); Potassium 4.5 mmol/L (3.4-5.1); Sodium 138 mmol/L (137-145); Total Protein 7.5 g/dL (6.3-8.2); Triglycerides 220 mg/dL (35-150)
[2024-11-20 14:43] LABS: Microalbumi Creatinin Ratio Ur 135.0 ug/mg CR (<30)
== END ==
PROVIDERS: PCP Family Medicine; Referring Provider Family Medicine; Visit Provider Family Medicine
DX: C64.9 Malignant neoplasm of unspecified kidney, except renal pelvis (principal); E11.9 Type 2 diabetes mellitus without complications; E78.5 Hyperlipidemia, unspecified; M51.9 Unspecified thoracic, thoracolumbar and lumbosacral intervertebral disc disorder; G62.9 Polyneuropathy, unspecified; N18.9 Chronic kidney disease, unspecified
CPT/HCPCS: 36415; 80053; 80061; 82043; 82570; 83036; 85025

== ENCOUNTER → 2024-12-03 12:11 | Outpatient (CLI) | payer MEDICARE, MEDICAID, SELFPAY ==
--- NOTE | 2024-12-03 12:14 | DI.CT.S_ITS ---
PROCEDURE: CT ABDOMEN PELVIS W CON INDICATIONS: kidney cancer TECHNIQUE: After the administration of intravenous contrast, axial sections acquired from the lung bases to the pubic symphysis. Coronal and sagittal reformats were performed. For radiation dose reduction, the following was used: automated exposure control, adjustment of mA and/or kV according to patient size. COMPARISON: [facility], CT, CT ABDOMEN PELVIS W CON, 01/22/2024, 11:11. FINDINGS: Image quality: Diagnostic. Lower Chest: No significant findings. ABDOMEN: Liver: No solid mass. [id number] hepatic steatosis. Gallbladder: Gallbladder is surgically absent. Biliary ducts: No biliary dilation. Pancreas: No ductal dilation. Spleen: Size is within normal limits. Adrenal Glands: No adrenal nodules. Kidneys and Ureters: Again noted are postsurgical changes from prior left partial nephrectomy with postsurgical changes. No gross solid enhancing renal lesion is seen to suggest local recurrence. Nonobstructing bilateral renal calculi are seen. Simple appearing small bilateral renal cortical cysts are noted. Patient's known superior pole right kidney angiomyolipoma and midpole left kidney angio myelolipoma remains unchanged in size and appearance series 2, images 36 and 38. Stomach and Bowel: Normal colonic caliber, without significant wall thickening. Mild to moderate fecal stasis in the colon. No abscess collection. Sigmoid diverticulosis without CT evidence of acute diverticulitis. Peritoneum: No abnormal intraperitoneal fluid. No free air. Ventral Wall: No significant ventral hernia. Abdominal Nodes: No retroperitoneal or mesenteric adenopathy by size criteria. Vessels: Aorta and inferior vena cava are normal in size. PELVIS: Pelvic Organs: Unremarkable. Bladder: No bladder wall thickening, accounting for underdistention. Pelvic Nodes: No enlarged lymph nodes. Miscellaneous: No inguinal hernias are seen. Bones: No aggressive osseous abnormality. IMPRESSION: 1. Prior partial left nephrectomy with postsurgical changes. No evidence of local recurrence. 2. Small renal angiomyolipoma is unchanged from prior study. 3. Small bilateral nonobstructing renal stones also unchanged. 4. No hydronephrosis or hydroureter. Normal appearing urinary bladder. 5. Other chronic changes as above, not significantly changed from prior study. Dictated by: Eloy Rojas M.D. on 12/04/2024 at 14:40 Approved by: Eloy Rojas M.D. on 12/04/2024 at 14:57
== END ==
PROVIDERS: PCP Family Medicine; Referring Provider Family Medicine; Visit Provider Family Medicine
DX: C64.9 Malignant neoplasm of unspecified kidney, except renal pelvis (principal); D17.71 Benign lipomatous neoplasm of kidney; N20.0 Calculus of kidney; K57.30 Diverticulosis of large intestine without perforation or abscess without bleeding; K76.0 Fatty (change of) liver, not elsewhere classified; N28.1 Cyst of kidney, acquired; Z90.49 Acquired absence of other specified parts of digestive tract
CPT/HCPCS: 74177; Q9967

== ENCOUNTER 2024-12-08 12:45 | Emergency (ER) | payer MEDICARE, MEDICAID, SELFPAY ==
[2024-12-08] VITALS (12 sets, daily range): BP systolic 101–163; BP diastolic 54–80; PULSE 62–80; RESP 15; TEMP 36.6; O2SAT 93–100; BMI 35.4
--- NOTE | 2024-12-08 13:05 | PC.NURSE ---
Pt reports seizure hx and diet managed diabetes
--- NOTE | 2024-12-08 13:07 | PC.NURSE ---
Recent fall and focal seizure in past couple weeks after onset of migraine. Reports seizures are usually focal.
--- NOTE | 2024-12-08 13:10 | DI.CT.S_ITS ---
PROCEDURE: CT ANGIO HEAD AND NECK INDICATIONS: severe mujica, hx hydrocephalus TECHNIQUE: After the administration of intravenous contrast, 1 mm thick sections acquired from the aortic arch through the [place] of [place]. 3-dimensional wzgstsi-gyhiyiyke-jfzvwlodkf (MIP) and/or volume rendering reformats were acquired of the central intracranial vasculature and neck separately. For radiation dose reduction, the following was used: automated exposure control, adjustment of mA and/or kV according to patient size. COMPARISON: None. FINDINGS: Image quality: Diagnostic. Cerebral CT Angiogram: Internal carotid arteries: No acute findings. Intracranial ICA are patent with no significant stenosis. No occlusion. No aneurysm. Anterior cerebral arteries: Unremarkable. No significant stenosis. No occlusion. No aneurysm. Middle cerebral arteries: Unremarkable. No significant stenosis. No occlusion. No aneurysm. Posterior cerebral arteries: Unremarkable. No significant stenosis. No occlusion. No aneurysm. Basilar artery: Unremarkable. No significant stenosis. No occlusion. No aneurysm. Vertebral arteries: Unremarkable as visualized. Dural venous sinuses: Unremarkable given phase of enhancement. Other: Arterial phase appearance of the brain parenchyma is unremarkable. Neck CT Angiogram: Internal carotid arteries: Unremarkable. No significant stenosis. No dissection or occlusion. Common carotid arteries: Unremarkable. No significant stenosis. No dissection or occlusion. External carotid arteries: Unremarkable. No occlusion. Vertebral arteries: Unremarkable. No significant stenosis. No dissection or occlusion. Aortic Arch and Mediastinum: Partially visualized aortic arch unremarkable without evidence of aneurysm. Origins of the great vessels unremarkable. Other: Asymmetrically enlarged right thyroid lobe is seen with heterogeneous enhancement. Bilateral lung apices are clear. Post ACDF changes are noted in lower cervical spine. IMPRESSION: 1. No significant intracranial arterial abnormality is seen. 2. No significant abnormality is seen within the arteries of the neck. 3. Asymmetric enlarged right thyroid lobe with heterogeneous enhancement concerning for nodular goiter. Follow-up outpatient thyroid ultrasound is recommended. Any quantitative measurements of stenosis were performed using NASCET criteria. Dictated by: Eloy Rojas M.D. on 12/08/2024 at 14:12 Approved by: Eloy Rojas M.D. on 12/08/2024 at 14:15
--- NOTE | 2024-12-08 13:10 | DI.CT.S_ITS ---
PROCEDURE: CT HEAD/BRAIN WO CON INDICATIONS: severe mujica TECHNIQUE: Noncontrast 4.5 mm thick angled axial sections acquired from the foramen magnum to the vertex, with coronal and sagittal reformats. For radiation dose reduction, the following was used: automated exposure control, adjustment of mA and/or kV according to patient size. COMPARISON: [facility], CT, HEAD WITHOUT CONTRAST, 10/16/2016, 12:28. FINDINGS: Image quality: Diagnostic. CSF spaces: Basal cisterns are patent. No extra-axial fluid collections. Enlarged to left lateral ventricle unchanged from prior studies is suggestive of benign process. Brain: No intracranial bleeds or mass effect. There is cerebral volume loss, with resultant ventricular and sulcal prominence. There are periventricular and deep white matter chronic small vessel ischemic changes. There is intracranial internal carotid artery atherosclerosis. Skull and face: Calvarium and visualized facial bones appear intact, without suspicious lesions. Sinuses: Visualized sinuses and mastoids are clear. IMPRESSION: No acute intracranial pathology. Chronic asymmetrically enlarged left lateral ventricle unchanged from prior studies and is suggestive of a benign process. Dictated by: Eloy Rojas M.D. on 12/08/2024 at 13:59 Approved by: Eloy Rojas M.D. on 12/08/2024 at 14:00
[2024-12-08] MEDS: PROCHLORPERAZINE 10 MG/2 ML VIAL IV (13:15)
[2024-12-08] MEDS: diphenhydrAMINE 50 MG/ML VIAL 25 MG IV (13:16)
[2024-12-08] MEDS: PROPARACAINE 0.5% OPHTH SOL 1 DROPS EYE-LEFT (13:17)
--- NOTE | 2024-12-08 13:21 | ED.HA ---
HPI - Headache <Elidia Zafar MD - Last Filed: 12/11/24 19:08> General Chief Complaint: Headache Stated Complaint: migraines 3 wks Time Seen by Provider: 12/08/24 12:53 Mode of arrival: Ambulatory History of Present Illness HPI Narrative: 64-year-old female history of hydrocephalus and seizure disorder, prescribed gabapentin and topiramate, falls with [facility], here for 2-3 weeks of severe left frontal headache. Patient reports was referred to the emergency department by her neurology office. No acute changes today. This has been a persistent daily headache that waxes and wanes in intensity. It is not positional. It is intensified by bright lights. There is mild phonophobia. She has no associated vomiting or unilateral weakness, new paresthesias, disturbances in speech or vision. No rash or fever or recent respiratory or other infectious illness. She does not typically get headaches she says. No changes in her medications. She feels that her eye is slightly painful as well but the bulk of her pain is in the left frontal area, sometimes spreads across to the right forehead and eye area Related Data Home Medications ?Medication ?Instructions ?Recorded ?Confirmed albuterol sulfate 90 mcg/actuation 2 puff INH PRN PRN Dyspnea ##0 03/31/10 11/20/24 aerosol inhaler (Proventil HFA) gabapentin 400 mg capsule 3,200 mg PO QDAY ##0 10/16/16 11/20/24 (Neurontin) peg 400-propylene glycol (PF) 0.4 2 drp OPHTH QDAY ##0 10/16/16 12/25/22 %-0.3 % eye drops in a dropperette (Systane (PF)) fluticasone propionate 50 2 spray intranasal DAILY PRN 10/06/19 11/20/24 mcg/actuation nasal Allergic Symptoms spray,suspension (Flonase Allergy Relief) topiramate 50 mg tablet (Topamax) 200 mg PO BID 10/06/19 11/20/24 albuterol sulfate 90 mcg/actuation 2 puff inhalation Q6H PRN 11/20/24 11/20/24 aerosol inhaler (Ventolin HFA) benzonatate 100 mg capsule 100 mg PO BID PRN 11/20/24 11/20/24 ezetimibe 10 mg tablet 10 mg PO DAILY 11/20/24 11/20/24 propranolol 20 mg tablet 10 mg PO BID 11/20/24 11/20/24 Previous Rx's ?Medication ?Instructions ?Recorded Walker: Front Wheel ##1 11/18/16 mxpwhhejnu-vlpntpyrkpins-vesdylao 1 cap PO Q4-6H PRN pain #30 caps 12/08/24 50 mg-300 mg-40 mg capsule (Fioricet) uxzhospaha-cqifkercrldvi-ozkjjevx 1 cap PO Q4-6H PRN pain #30 caps 12/08/24 50 mg-300 mg-40 mg capsule (Fioricet) Allergies Allergy/AdvReac Type Severity Reaction Status Date / Time adhesive tape (ADHESIVE TAPE) Allergy Severe I GOT Verified 12/25/22 10:06 RED blister aspirin (ASPIRIN) Allergy Unknown UNKNOWN Verified 12/25/22 10:06 REACTION PER PT nitrofurantoin Allergy Unknown UNKNOWN Verified 12/25/22 10:06 (NITROFURANTOIN) REACTION Penicillins (PENICILLINS) Allergy Unknown ITCHING-PT Verified 12/25/22 10:06 DOES NOT REMEMBER SEVERITY Sulfa (Sulfonamide Allergy Unknown UNKNOWN Verified 12/25/22 10:06 Antibiotics) (SULFA PER PT (SULFONAMIDE ANTIBIOTICS)) [id number] Allergy Unknown PT NOT Uncoded 12/25/22 10:06 AWARE OF THIS ALLERGY estradiol cream AdvReac Severe seizure Uncoded 12/25/22 12:56 Review of Systems <Elidia Zafar MD - Last Filed: 12/11/24 19:08> Review of Systems Narrative: Pertinent ROS obtained and negative except as stated in HPI Patient History <Elidia Zafar MD - Last Filed: 12/11/24 19:08> Medical History (Updated 12/08/24 @ 16:23 by Roberto Mercado DO) Stage 1 malignant neoplasm of kidney Asthma Obesity Diabetes Seizure-like activity Surgical History History of back surgery Hx of knee surgery Hx of neck surgery Hx of shoulder surgery Hx of cholecystectomy History of total knee arthroplasty Family History (Updated 12/12/22 @ 20:04 by Frances Lira) Mother Hypertension Heart disease Diabetes mellitus Stroke Colon cancer Kidney malignancy Hyperlipidemia Father Diabetes mellitus Gallstones Hypertension Social History marital status: unknown household members: none Smoking Status: Never smoker alcohol intake: never substance use type: does not use Smoking Status: Never smoker alcohol intake frequency: 0-2 drinks per day Exam <Elidia Zafar MD - Last Filed: 12/11/24 19:08> Initial Vital Signs Initial Vital Signs: Vital Signs Temperature 97.8 F 12/08/24 12:53 Pulse Rate 80 12/08/24 12:53 Respiratory Rate 15 12/08/24 12:53 Blood Pressure 163/76 H 12/08/24 12:53 Pulse Oximetry 98 12/08/24 12:53 Oxygen Delivery Method Room Air 12/08/24 12:53 Constitutional: Well appearing, no acute distress Head: NCAT Cardiovascular: RRR, no murmur or rub Pulmonary: CTA bilaterally, no respiratory distress Abdominal: soft, non-tender Extremities: No LE edema Skin: warm and dry, no diaphoresis Neurological: Alert and oriented x3. Mental status: Alert and oriented x3. Normal attention and follows commands. Memory grossly intact. Patient has some mild stumbling over her words and at least 1 instance of a slurred word; reports this is normal for her and attributes this to her Topamax prescription. Visual/Spacial function - no neglect. Cranial nerves: Normal EOM. No visual loss. No facial palsy. Normal speech. No dysarthria. Patient reports decreased sensation in left V1 as compared to right V1 otherwise normal sensation across the face Motor Exam: Equal 4/5 strength UE and LEs. Brisk patellar reflex on the left. Not able to elicit patellar reflex on the right. Patient is status post total knee replacement. Sensory Exam: Normal sensation of extremities. Coordination and Cerebellar Exam: No limb ataxia. No truncal ataxia. Normal coordination. No nystagmus noted. Negative test of skew. During my exam the patient suddenly slumped over to the left resting her trunk on the pillow. She begins having shaking of the left arm. She winces with light touching over her eyelashes and suddenly returns to alertness, tells me that she has just had a seizure <Roberto Mercado DO - Last Filed: 12/08/24 16:30> Initial Vital Signs Initial Vital Signs: Vital Signs Temperature 97.8 F 12/08/24 12:53 Pulse Rate 80 12/08/24 12:53 Respiratory Rate 15 12/08/24 12:53 Blood Pressure 163/76 H 12/08/24 12:53 Pulse Oximetry 98 12/08/24 12:53 Oxygen Delivery Method Room Air 12/08/24 12:53 Course <Elidia Zafar MD - Last Filed: 12/11/24 19:08> Orders Ordered: Discontinued Medications Diphenhydramine HCl (Diphenhydramine 50 Mg/Ml Vial) 25 mg IV NOW ONE Stop: 12/08/24 13:11 Last Admin: 12/08/24 13:16 Dose: 25 mg Documented By: EB Hydromorphone HCl (Hydromorphone 1 Mg/Ml Syringe) 1 mg IV NOW ONE Stop: 12/08/24 14:10 Last Admin: 12/08/24 16:30 Dose: Not Given Documented By: JAIMIE Sodium Chloride (Normal Saline 0.9%) 1,000 mls @ 1,000 mls/hr IV BOLUS ONE Stop: 12/08/24 15:08 Last Infusion: 12/08/24 15:07 Dose: Infused Documented By: Admin: 12/08/24 14:22 Dose: 1,000 mls/hr Documented By: ES Prochlorperazine (Prochlorperazine 10 Mg/2 Ml Vial) 10 mg IV NOW ONE Stop: 12/08/24 13:11 Last Admin: 12/08/24 13:15 Dose: 10 mg Documented By: GENOVEVA Proparacaine HCl (Proparacaine 0.5% Ophth Radha) 1 drops EYE-LEFT NOW ONE Stop: 12/08/24 13:11 Last Admin: 12/08/24 13:17 Dose: 1 drop Documented By: GENOVEVA Vital Signs Vital signs: Vital Signs - 8 hr 12/08/24 12:53 12/08/24 13:05 12/08/24 13:15 Temperature 97.8 F Pulse Rate 80 67 65 Respiratory Rate 15 Blood Pressure 163/76 H 126/71 Pulse Oximetry 98 98 Oxygen Delivery Method Room Air 12/08/24 13:30 12/08/24 13:41 12/08/24 13:41 Temperature Pulse Rate 79 70 Respiratory Rate Blood Pressure 131/61 Pulse Oximetry 96 96 Oxygen Delivery Method 12/08/24 14:00 12/08/24 14:01 12/08/24 14:01 Temperature Pulse Rate 69 68 Respiratory Rate Blood Pressure 101/54 L Pulse Oximetry 93 94 Oxygen Delivery Method 12/08/24 14:30 12/08/24 14:30 12/08/24 15:00 Temperature Pulse Rate 64 63 Respiratory Rate Blood Pressure 109/56 L Pulse Oximetry 93 93 Oxygen Delivery Method 12/08/24 15:00 Temperature Pulse Rate Respiratory Rate Blood Pressure 128/62 Pulse Oximetry Oxygen Delivery Method <Roberto Mercado, DO - Last Filed: 12/08/24 16:30> Orders Ordered: Discontinued Medications Diphenhydramine HCl (Diphenhydramine 50 Mg/Ml Vial) 25 mg IV NOW ONE Stop: 12/08/24 13:11 Last Admin: 12/08/24 13:16 Dose: 25 mg Documented By: GENOVEVA Hydromorphone HCl (Hydromorphone 1 Mg/Ml Syringe) 1 mg IV NOW ONE Stop: 12/08/24 14:10 Last Admin: 12/08/24 16:30 Dose: Not Given Documented By: JAIMIE Sodium Chloride (Normal Saline 0.9%) 1,000 mls @ 1,000 mls/hr IV BOLUS ONE Stop: 12/08/24 15:08 Last Infusion: 12/08/24 15:07 Dose: Infused Documented By: Admin: 12/08/24 14:22 Dose: 1,000 mls/hr Documented By: JAIMIE Prochlorperazine (Prochlorperazine 10 Mg/2 Ml Vial) 10 mg IV NOW ONE Stop: 12/08/24 13:11 Last Admin: 12/08/24 13:15 Dose: 10 mg Documented By: GENOVEVA Proparacaine HCl (Proparacaine 0.5% Ophth Radha) 1 drops EYE-LEFT NOW ONE Stop: 12/08/24 13:11 Last Admin: 12/08/24 13:17 Dose: 1 drop Documented By: GENOVEVA Vital Signs Vital signs: Vital Signs - 8 hr 12/08/24 12:53 12/08/24 13:05 12/08/24 13:15 Temperature 97.8 F Pulse Rate 80 67 65 Respiratory Rate 15 Blood Pressure 163/76 H 126/71 Pulse Oximetry 98 98 Oxygen Delivery Method Room Air 12/08/24 13:30 12/08/24 13:41 10/06/25 13:41 Temperature Pulse Rate 79 70 Respiratory Rate Blood Pressure 131/61 Pulse Oximetry 96 96 Oxygen Delivery Method 12/08/24 14:00 12/08/24 14:01 12/08/24 14:01 Temperature Pulse Rate 69 68 Respiratory Rate Blood Pressure 101/54 L Pulse Oximetry 93 94 Oxygen Delivery Method 12/08/24 14:30 12/08/24 14:30 12/08/24 15:00 Temperature Pulse Rate 64 63 Respiratory Rate Blood Pressure 109/56 L Pulse Oximetry 93 93 Oxygen Delivery Method 12/08/24 15:00 Temperature Pulse Rate Respiratory Rate Blood Pressure 128/62 Pulse Oximetry Oxygen Delivery Method MDM - Headache <Elidia Zafar MD - Last Filed: 12/11/24 19:08> Lab Data 12/08/24 13:00 12/08/24 13:00 Labs: Lab Results 12/08/24 Range/Units 13:00 WBC 7.4 (4.5-11.0) X10^3/uL RBC 4.53 (4.0-5.2) X10^6/uL Hgb 14.3 (12.0-16.0) g/dL Hct 42.1 (36-46) % MCV 92.8 (80-100) fL MCH 31.7 (26-34) PG MCHC 34.1 (30-36) % RDW 13.4 (11.6-14.8) % Plt Count 307 (150-400) X10^3/uL Neut % (Auto) 65.7 (50-75) % Lymph % (Auto) 26.5 (25-40) % Tripp % (Auto) 5.3 (3-14) % Eos % (Auto) 1.9 L (2-4) % Baso % (Auto) 0.6 (0-2) % Neut # (Auto) 4800 (0129-9496) /uL Lymph # (Auto) 1900 (5307-6758) /uL Tripp # (Auto) 400 (0-900) /uL Eos # (Auto) 100 (0-450) /uL Baso # (Auto) 0 (0-100) /uL ESR 2 (0-20) MM/HR Sodium 140 (137-145) mmol/L Potassium 4.0 (3.4-5.1) mmol/L Chloride 108 H (98-107) mmol/L Carbon Dioxide 22 (22-32) mmol/L BUN 13 (7-17) mg/dL Creatinine 1.10 H (0.52-1.04) mg/dL Estimated GFR 57 L (>60) mL/min BUN/Creatinine Ratio 11.8 (6-22) Glucose 191 H (70-99) mg/dL Calcium 9.3 (8.4-10.2) mg/dL C-Reactive Protein 1.7 H (<1.0) mg/dL [facility] Narrative Medical decision making narrative: This is a 64-year-old female with comorbidities as stated above here with headache for weeks. Please see HPI for full history. Here in ED patient has normal vital signs. She is nontoxic appearing. No focal neurologic deficits although has a ?seizure? while I am checking reflexes where she slumps over to the side began shaking her left arm, flinches to light touch across the eyelashes, wakes up after about 10-15 seconds to alertness. Differential diagnosis for headache is quite broad. This certainly could be benign type headache such as migraine. I have also considered more ominous diagnoses such as subarachnoid hemorrhage or hydrocephalus. Patient is not reporting any infectious illness has no fever or nuchal rigidity so I think meningitis is not likely. I did check in eye pressure on the left and is 15. This makes glaucoma not very likely. Had considered temporal arteritis and have ordered inflammatory markers. She does have palpable orthodoxy a. pulse. No focal deficits or hypercoagulable disease that would be concerning with CVT 0210, patient had been reporting 7 on a 10 pain. Per RN is asleep in her room, normal heart rate after compazine/benadryl. Awaiting CT results. Laboratories stable. 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 Pt signed out to Dr. Mrecado pending reevaluation/CT results. All lab work, vital signs, nurse triage note, medication list, previous ER visits, and all imaging studies reviewed. CTA head and neck shows no significant intracranial arterial abnormality is seen. No significant abnormality is seen within. The arteries of the neck symmetric enlarged right thyroid lobe with heterogeneous enhancement concerning for nodular goiter. CT head showed no acute intracranial pathology. Chronic asymmetrical enlarged left lateral ventricle unchanged from prior studies in his suggestive Of a benign process. WBC 7.4 going 14.3 hematocrit 42.1 platelet 307 sodium 140 potassium 4.0 chloride 108 CO2 22 BUN 13 creatinine 1.10 glucose 191 C-reactive protein 1.7 GCS of 15 nonfocal neuro exam has received fluids, Compazine, Benadryl, Dilaudid here. Patient feels much better. Differential diagnosis aneurysm subarachnoid hemorrhage temporal arteritis migraine. [facility] <Roberto Mercado, DO - Last Filed: 12/08/24 16:30> Lab Data Labs: Lab Results 12/08/24 Range/Units 13:00 WBC 7.4 (4.5-11.0) X10^3/uL RBC 4.53 (4.0-5.2) X10^6/uL Hgb 14.3 (12.0-16.0) g/dL Hct 42.1 (36-46) % MCV 92.8 (80-100) fL MCH 31.7 (26-34) PG MCHC 34.1 (30-36) % RDW 13.4 (11.6-14.8) % Plt Count 307 (150-400) X10^3/uL Neut % (Auto) 65.7 (50-75) % Lymph % (Auto) 26.5 (25-40) % Tripp % (Auto) 5.3 (3-14) % Eos % (Auto) 1.9 L (2-4) % Baso % (Auto) 0.6 (0-2) % Neut # (Auto) 4800 (7617-3237) /uL Lymph # (Auto) 1900 (1367-5214) /uL Tripp # (Auto) 400 (0-900) /uL Eos # (Auto) 100 (0-450) /uL Baso # (Auto) 0 (0-100) /uL ESR 2 (0-20) MM/HR Sodium 140 (137-145) mmol/L Potassium 4.0 (3.4-5.1) mmol/L Chloride 108 H (98-107) mmol/L Carbon Dioxide 22 (22-32) mmol/L BUN 13 (7-17) mg/dL Creatinine 1.10 H (0.52-1.04) mg/dL Estimated GFR 57 L (>60) mL/min BUN/Creatinine Ratio 11.8 (6-22) Glucose 191 H (70-99) mg/dL Calcium 9.3 (8.4-10.2) mg/dL C-Reactive Protein 1.7 H (<1.0) mg/dL Imaging Data CT scan - head: Radiologist's Impression: [place] [id number] CT Scan Report Signed Patient: Rajiv Wisdom MR#: [id number] : 1960 Acct:[id number] Age/Sex: 64 / F Date of Service: 12/08/24 Loc: ED Accession Number: [id number] Procedure: CT head/brain wo con Ordering Provider: Elidia Zafar MD PROCEDURE: CT HEAD/BRAIN WO CON INDICATIONS: severe mujica TECHNIQUE: Noncontrast 4.5 mm thick angled axial sections acquired from the foramen magnum to the vertex, with coronal and sagittal reformats. For radiation dose reduction, the following was used: automated exposure control, adjustment of mA and/or kV according to patient size. COMPARISON: [facility], CT, HEAD WITHOUT CONTRAST, 10/16/2016, 12:28. FINDINGS: Image quality: Diagnostic. CSF spaces: Basal cisterns are patent. No extra-axial fluid collections. Enlarged to left lateral ventricle unchanged from prior studies is suggestive of benign process. Brain: No intracranial bleeds or mass effect. There is cerebral volume loss, with resultant ventricular and sulcal prominence. There are periventricular and deep white matter chronic small vessel ischemic changes. There is intracranial internal carotid artery atherosclerosis. Skull and face: Calvarium and visualized facial bones appear intact, without suspicious lesions. Sinuses: Visualized sinuses and mastoids are clear. IMPRESSION: No acute intracranial pathology. Chronic asymmetrically enlarged left lateral ventricle unchanged from prior studies and is suggestive of a benign process. CTA - brain/neck: Radiologist's Impression: [address] [id number] [address] Scan Report Signed Patient: Rajiv Wisdom MR#: [id number] : 1960 Acct:[id number] Age/Sex: 64 / F Date of Service: 12/08/24 Loc: ED Accession Number: [id number] Procedure: CT angio head and neck Ordering Provider: Elidia Zafar MD PROCEDURE: CT ANGIO HEAD AND NECK INDICATIONS: severe mujica, hx hydrocephalus TECHNIQUE: After the administration of intravenous contrast, 1 mm thick sections acquired from the aortic arch through the [place] of [place]. 3-dimensional xbnasur-ozvbnfdlw-elrtdvosbe (MIP) and/or volume rendering reformats were acquired of the central intracranial vasculature and neck separately. For radiation dose reduction, the following was used: automated exposure control, adjustment of mA and/or kV according to patient size. COMPARISON: None. FINDINGS: Image quality: Diagnostic. Cerebral CT Angiogram: Internal carotid arteries: No acute findings. Intracranial ICA are patent with no significant stenosis. No occlusion. No aneurysm. Anterior cerebral arteries: Unremarkable. No significant stenosis. No occlusion. No aneurysm. Middle cerebral arteries: Unremarkable. No significant stenosis. No occlusion. No aneurysm. Posterior cerebral arteries: Unremarkable. No significant stenosis. No occlusion. No aneurysm. Basilar artery: Unremarkable. No significant stenosis. No occlusion. No aneurysm. Vertebral arteries: Unremarkable as visualized. Dural venous sinuses: Unremarkable given phase of enhancement. Other: Arterial phase appearance of the brain parenchyma is unremarkable. Neck CT Angiogram: Internal carotid arteries: Unremarkable. No significant stenosis. No dissection or occlusion. Common carotid arteries: Unremarkable. No significant stenosis. No dissection or occlusion. External carotid arteries: Unremarkable. No occlusion. Vertebral arteries: Unremarkable. No significant stenosis. No dissection or occlusion. Aortic Arch and Mediastinum: Partially visualized aortic arch unremarkable without evidence of aneurysm. Origins of the great vessels unremarkable. Other: Asymmetrically enlarged right thyroid lobe is seen with heterogeneous enhancement. Bilateral lung apices are clear. Post ACDF changes are noted in lower cervical spine. IMPRESSION: 1. No significant intracranial arterial abnormality is seen. 2. No significant abnormality is seen within the arteries of the neck. 3. Asymmetric enlarged right thyroid lobe with heterogeneous enhancement concerning for nodular goiter. Follow-up outpatient thyroid ultrasound is recommended. Any quantitative measurements of stenosis were performed using NASCET criteria. MDM Narrative Medical decision making narrative: This is a 64-year-old female with comorbidities as stated above here with headache for weeks. Please see HPI for full history. Here in ED patient has normal vital signs. She is nontoxic appearing. No focal neurologic deficits although has a ?seizure? while I am checking reflexes where she slumps over to the side began shaking her left arm, flinches to light touch across the eyelashes, wakes up after about 10-15 seconds to alertness. Differential diagnosis for headache is quite broad. This certainly could be benign type headache such as migraine. I have also considered more ominous diagnoses such as subarachnoid hemorrhage or hydrocephalus. Patient is not reporting any infectious illness has no fever or nuchal rigidity so I think meningitis is not likely. I did check in eye pressure on the left and is 15. This makes glaucoma not very likely. Had considered temporal arteritis and have ordered inflammatory markers. She does have palpable orthodoxy a. pulse. No focal deficits or hypercoagulable disease that would be concerning with CVT 0210, patient had been reporting 7 on a 10 pain. Per RN is asleep in her room, normal heart rate after compazine/benadryl. Awaiting CT results. Laboratories stable. 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 CTA head and neck shows no significant intracranial arterial abnormality is seen. No significant abnormality is seen within. The arteries of the neck symmetric enlarged right thyroid lobe with heterogeneous enhancement concerning for nodular goiter. CT head showed no acute intracranial pathology. Chronic asymmetrical enlarged left lateral ventricle unchanged from prior studies in his suggestive Of a benign process. WBC 7.4 going 14.3 hematocrit 42.1 platelet 307 sodium 140 potassium 4.0 chloride 108 CO2 22 BUN 13 creatinine 1.10 glucose 191 C-reactive protein 1.7 GCS of 15 nonfocal neuro exam has received fluids, Compazine, Benadryl, Dilaudid here. Patient feels much better. Differential diagnosis aneurysm subarachnoid hemorrhage temporal arteritis migraine. DC home on Fioricet. Discharge Plan Departure Patient Disposition: Home Clinical Impression: Migraine, transformed Instructions: DI for Migraine Activity Restrictions/Additional Instructions: Return with new or worsening symptoms. Keep hydrated. Follow up PCP in 1-2 weeks if no improvement in symptoms. Take your medicine as directed. Prescriptions: New ffdrpdhbla-jotnvlcerdsjs-rbzt [Fioricet] 50-300-40 mg capsule 1 cap PO Q4-6H PRN (Reason: pain) Qty: 30 0RF pzbgmaeocn-byfjqoofneuqm-cnxi [Fioricet] 50-300-40 mg capsule 1 cap PO Q4-6H PRN (Reason: pain) Qty: 30 0RF No Action benzonatate 100 mg capsule 100 mg PO BID PRN propranolol 20 mg tablet 10 mg PO BID ezetimibe 10 mg tablet 10 mg PO DAILY albuterol sulfate [Ventolin HFA] 90 mcg/actuation HFA aerosol inhaler 2 puff inhalation Q6H PRN albuterol sulfate [Proventil HFA] 90 MCG/PUFF HFA aerosol inhaler 2 puff INH PRN PRN (Reason: Dyspnea) Qty: 0 gabapentin [Neurontin] 400 MG capsule 3,200 mg PO QDAY Qty: 0 Rx Instructions: 2 tabs in am, 3 tams at noon, 2 tabs evening Systane (PF) 1 EACH dropperette 2 drp OPHTH QDAY Qty: 0 Walker: Front Wheel Qty: 1 0RF fluticasone propionate [Flonase Allergy Relief] 50 mcg/actuation [place],Suspension 2 spray INTRANASAL DAILY PRN (Reason: Allergic Symptoms) topiramate [Topamax] 50 MG tablet 200 mg PO BID Referrals: Shari Slater MD [Primary Care Provider, Family Practice] Stand Alone Forms: Patient Portal/API
[2024-12-08 13:24] LABS: Add Manual Diff / Slide Review NO; Hematocrit 42.1 % (36-46); Hemoglobin 14.3 g/dL (12.0-16.0); Lymphocytes Absolute Auto 1900 /uL (1100-4500); Mean Corpuscular HGB Conc 34.1 % (30-36); Mean Corpuscular Hemoglobin 31.7 PG (26-34); Mean Corpuscular Volume 92.8 fL (80-100); Platelet Count 307 X10^3/uL (150-400)
[2024-12-08 13:28] LABS: Blood Urea Nitrogen 13 mg/dL (7-17); Calcium 9.3 mg/dL (8.4-10.2); Carbon Dioxide 22 mmol/L (22-32); Chloride 108 mmol/L (98-107); Estimated Glomerular Filt Rate 57 mL/min (>60); Glucose 191 mg/dL (70-99); HEMOLYSIS < 15 (0-50); Potassium 4.0 mmol/L (3.4-5.1); Sodium 140 mmol/L (137-145)
[2024-12-08] MEDS: SODIUM CHLORIDE 0.9% 1,000 ML 1000 ML IV (14:22)
== END 2024-12-08 16:40 | disposition home or self-care (01) ==
PROVIDERS: Student in an Organized Health Care Education/Training Program; Emergency Provider Family Medicine; PCP Family Medicine
DX: G43.709 Chronic migraine without aura, not intractable, without status migrainosus (principal); G40.909 Epilepsy, unspecified, not intractable, without status epilepticus
CPT/HCPCS: 70450; 70496; 70498; 80048; 85025; 85651; 86140; 96361; 96374; 96375; 99284; J0780; J1200; J7030; Q9967

== ENCOUNTER → 2025-01-14 09:11 | Outpatient (CLI) | payer MEDICARE, MEDICAID, SELFPAY ==
--- NOTE | 2025-01-14 09:13 | DI.MRI.S_ITS ---
PROCEDURE: MR THORACIC SPINE WO CON
--- NOTE | 2025-01-14 09:13 | DI.MRI.S_ITS ---
PROCEDURE: MR LUMBAR SPINE WO CON
--- NOTE | 2025-01-14 09:13 | DI.US.S_ITS ---
PROCEDURE: US THYROID
== END ==
PROVIDERS: PCP Family Medicine; Referring Provider Family Medicine; Visit Provider Family Medicine
DX: E04.2 Nontoxic multinodular goiter (principal); R31.0 Gross hematuria; M51.9 Unspecified thoracic, thoracolumbar and lumbosacral intervertebral disc disorder; M51.369 Other intervertebral disc degeneration, lumbar region without mention of lumbar back pain or lower extremity pain; M51.379 Other intervertebral disc degeneration, lumbosacral region without mention of lumbar back pain or lower extremity pain; M47.816 Spondylosis without myelopathy or radiculopathy, lumbar region; M47.817 Spondylosis without myelopathy or radiculopathy, lumbosacral region; M48.061 Spinal stenosis, lumbar region without neurogenic claudication; M48.07 Spinal stenosis, lumbosacral region; E88.2 Lipomatosis, not elsewhere classified
CPT/HCPCS: 72146; 72148; 76536; 87086

== ENCOUNTER → 2025-01-21 09:50 | Outpatient (CLI) | payer MEDICARE, MEDICAID, SELFPAY ==
--- NOTE | 2025-01-21 09:51 | DI.MG.S_ITS ---
MM screening mammo BI: 01/21/2025. BI-RADS: 1 CLINICAL: 64-year old female for bilateral screening mammogram. Tyrer-Cuzick lifetime risk of 3.5%. No personal or first-degree family history of breast cancer. PRIOR EXAMS 12/05/2019, 05/03/2017. MAMMOGRAPHY TECHNIQUE: 2D and 3D (tomosynthesis) digital mammographic views obtained, with additional images as needed for full coverage. Current study was also evaluated with a Computer Aided Detection (CAD) system. DENSITY A. The breasts are almost entirely fatty. MAMMOGRAPHY FINDINGS Bilateral: No suspicious mass, asymmetry, microcalcification, or other abnormality seen. IMPRESSION: * No evidence of malignancy. RECOMMENDATIONS Bilateral * Annual screening mammography. OVERALL ASSESSMENT CATEGORY BI-RADS-1: Negative. The [employer] recommends annual screening mammography beginning at age 40 for women with average risk of breast cancer. ELECTRONICALLY SIGNED: Jacki Carmona M.D. on 01/21/2025 at 05:01:41 PM PT Interpreting Station ID: [id number]
== END ==
LOC: MAMMO 09:50
PROVIDERS: PCP Family Medicine; Referring Provider Family Medicine; Visit Provider Family Medicine
DX: Z12.31 Encounter for screening mammogram for malignant neoplasm of breast (principal); R92.313 Mammographic fatty tissue density, bilateral breasts
CPT/HCPCS: 77063; 77067

== ENCOUNTER → 2025-01-28 08:01 | Outpatient (CLI) | payer MEDICARE, MEDICAID, SELFPAY ==
--- NOTE | 2025-01-28 | PATH_ITS ---
Note [facility] Accession Number: [id number] TESTS RESULT FLAG UNITS REF RANGE LAB Clinician Provided Cytology Information No. of containers..02 Previously Prepared Cytology Slide 35 Unknown Storage/container code(s) Source: RT ISTHMUS THYROID DIAGNOSIS: RT ISTHMUS THYROID INCONCLUSIVE. [place] CATEGORY III. 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 Pathologist ICD10: R89.6 Signed out by: Dari Huff DO, Pathologist NPI- [id number] Performed by: Candis Jernigan, Mold Sprayer ([facility]) Gross description: 20 CC, PINK, CLEAR RECIEVED IN CYTOLYT WITH 6 FIXED AND 6 STAINED SLIDES. 1 RNA WILL BE ON . /MANI 01/30/2025 1305 Local FLAG LEGEND: L-Low Normal,H-High Normal,LL-Alert Low,HH-Alert High <-Panic Low,>-Panic High,A-Abnormal,AA-Critical Abnormal Performed at: 01 =Z [facility] [address], [place] [address] Kavin Dawn MD, Performed at: [address] [facility] [address], [place], [place] [id number] MD Kavin Dawn MD Phone: [phone]
--- NOTE | 2025-01-28 | PATH_ITS ---
Note [facility] Accession Number: [id number] TESTS RESULT FLAG UNITS REF RANGE LAB Clinician Provided Cytology Information No. of containers..02 Previously Prepared Cytology Slide 35 Unknown Storage/container code(s) Source: RT THYROID NODULE DIAGNOSIS: RT THYROID NODULE INCONCLUSIVE. [place] CATEGORY III. 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 Pathologist ICD10: 01 R89.6 Signed out by: Dari Huff DO, Pathologist NPI- [id number] Performed by: Candis Jernigan, Lead Simulation Modeling Engineer ([facility]) Gross description: 25 CC, PINK, CLEAR RECIEVED IN CYTOLYT WITH 6 ALCOHOL FIXED AND 6 STAINED SLIDES. 1 RNA WILL BE ON . /MANI 01/30/2025 1256 Local FLAG LEGEND: L-Low Normal,H-High Normal,LL-Alert Low,HH-Alert High <-Panic Low,>-Panic High,A-Abnormal,AA-Critical Abnormal Performed at: 01 =Z [facility], [place] [address] Kavin Dawn MD, Performed at: [address] [facility], [place], [place] [id number] MD Kavin Dawn MD Phone: [phone]
--- NOTE | 2025-01-28 08:02 | DI.US.S_ITS ---
PROCEDURE: US FINE NEEDLE ASPIRATION INDICATIONS: thyroid nodules TECHNIQUE: The indications, alternatives, benefits, risks, and complications of the procedure were explained to the patient. Written informed consent was obtained and placed in the chart. The thyroid region was examined sonographically and a site was chosen for ultrasound guided percutaneous sampling. The skin was prepared and draped in the usual fashion, and anesthetized with 1% lidocaine infiltrated from the skin down to the thyroid gland. Multiple passes were then performed, with contents emptied into an appropriate pathology specimen container. A bandage was applied to the area of access at completion of the study. COMPARISON: None. FINDINGS: Location(s) of lesion(s) sampled: Right midpole thyroid lobe nodule and right isthmus nodule. [place]: 25 gauge hypodermic needles. Number of passes: 6 passes for each nodule. Medications: 1% lidocaine for local anaesthesia. Complications: None. IMPRESSION: Successful ultrasound-guided thyroid nodule fine needle aspiration, with cytology results pending. Please see chart below for management recommendations based on cytology results. [facility] ReportingRecommendationsNon-diagnostic* Repeat US-guided FNA, with on-site cytology evaluation if possible. * Repeated non-diagnostic nodules without high suspicion US features: close observation vs surgical consult. * Consider surgery if nodule has high suspicion US features, grows >20% in 2 dimensions on followup, or patient has clinical risk factors for malignancy. Benign* If nodule has high suspicion US features: repeat US and FNA within 12 months. * If nodule has low to intermediate suspicion US features: repeat US at 12-24 months. If nodule grows (20% increase in at least 2 dimensions, with minimal increase of 2 mm or >50% change in volume), or development of new suspicious US features, then repeat FNA or continue followup. * If nodule has very low suspicion US features: followup US at >24 months. Atypia of undetermined significance, follicular lesion of undetermined significanceRepeat FNA, molecular testing, followup US, or surgical consult.Follicular neoplasm, suspicious for follicular neoplasmSurgical consult; also consider molecular testing. Suspicious for malignancySurgical consult.MalignantSurgical consult. Dictated by: Eloy Rojas M.D. on 01/28/2025 at 11:58 Approved by: Eloy Rojas M.D. on 01/28/2025 at 11:58
== END ==
LOC: US 08:02
PROVIDERS: PCP Family Medicine; Referring Provider Family Medicine; Visit Provider Family Medicine
DX: E04.2 Nontoxic multinodular goiter (principal)
CPT/HCPCS: 10005; 10006